=== PATIENT | female | born 1945 | race Caucasian/White ===

== ENCOUNTER 2016-08-21 18:40 | Inpatient (IN) | payer MEDICARE, OTHER ==
[~2016-08-21] VITALS: Ht 157.4 cm; Wt 59.0 kg
--- NOTE | ~2016-08-21 | EKG ---
[place], [place] ELECTROCARDIOGRAM REPORT NAME: RASHAD CHAVEZ UNIT #: [id number] ROOM: 521 DOCTOR: EVELIN VALENTIN MD BIRTHDATE: [birth year] DOS: 08/21/2016 TIME: 2017 hours. Normal sinus rhythm at 56 beats per minute. First degree heart block. A mild intraventricular conduction defect. An abnormal ECG. No previous tracing is available for comparison. EVELIN VALENTIN MD CM:EKGRPT:ELECTROCARDIOGRAM REPORT [id number] EVELIN VALENTIN MD
[~2016-08-21 18:40] MED LIST: ALBUTEROL0.09 MG/A1 INH; ASPIRIN325 MG PO; ATROVENT H0.017 MG/A INH; B-12 DOTS500 MCG PO; CALCIUM + VITA1 EAC2 PO; CEPHALEXIN500 M1 PO; CIPRO500 MG PO; COREG25 MG PO; COZAAR50 M1 PO; CYCLOBENZAPRINE10 MG PO; CYMBALTA60 MG PO; DIGOXIN0.25 MG PO; FISH OIL OMEGA1 EACH PO; GLUCOPHAGE1000 MG PO; GLUCOPHAGE500 M1 PO; IPRATROPIUM; LANOXIN0.125 MG PO; LOVASTATIN40 MG PO; MAGNESIUM250 M2 PO; NORVASC2.5 MG PO; PERCOCET 325 MG1 TA4 PO; PHENERGAN25 M3 PO; PLETAL100 M1 PO; XANAX0.5 MG PO; ZOFRAN4 MG PO
[2016-08-21 19:11] VITALS: BP 117/53
[2016-08-21 19:38] LABS: BASO % 0.6 % (0.0-1.0); EOS # 0.6 10*3/uL (0.0-0.4); EOS % 7.8 % (1.0-4.0); HEMATOCRIT 29.8 % (37.0-47.0); HEMOGLOBIN 9.6 g/dl (12.0-16.0); LYMPH # 1.6 10*3/uL (1.3-4.4); LYMPH % 21.3 % (27.0-41.0); MEAN CELL VOLUME 95.8 fl (81.0-99.0); MEAN CORPUSCULAR HGB 30.9 pg (27.0-31.0); MEAN CORPUSCULAR HGB CONC 32.2 g/dl (33.0-37.0); MEAN PLATELET VOLUME 8.8 fl (9.6-12.3); MONO # 0.6 10*3/uL (0.1-1.0); MONO % 7.8 % (3.0-9.0); NEUT # 4.5 10*3/uL (2.3-7.9); NEUT % 62.1 % (47.0-73.0); PLATELET COUNT AUTOMATED 304 10*3/uL (130-400); RED BLOOD COUNT 3.11 10*6/uL (4.10-5.10); RED CELL DISTRI WIDTH 14.5 % (0-14.5); WHITE BLOOD COUNT 7.3 10*3/uL (4.8-10.8)
[2016-08-21 19:47] LABS: PROTHROMBIN TIME 10.9 SECONDS (9.0-12.4)
[2016-08-21 19:55] LABS: ALBUMIN 3.4 gm/dl (3.1-4.5); ALKALINE PHOSPHATASE 84 U/L (45-117); BILIRUBIN, TOTAL 0.2 mg/dl (0.2-1.0); BUN 31 mg/dl (7-24); CARBON DIOXIDE 19 mmol/L (21-32); CHLORIDE 108 mmol/L (98-107); EST GLOM FILT AFRICAN AMERICAN 47 ml/min; GLUCOSE 87 mg/dL (65-99); MAGNESIUM 1.6 mg/dL (1.5-2.1); SGOT/AST 33 IU/L (3-35); SGPT/ALT 45 U/L (12-78); SODIUM 142 mmol/L (136-145); TOTAL PROTEIN 6.8 gm/dL (6.4-8.2)
[2016-08-21 19:56] LABS: TROPONIN I < 0.015 ng/ml (<0.045)
[2016-08-21 21:20] VITALS: BP 124/55
[2016-08-21 22:00] VITALS: BP 139/56
[2016-08-21 22:40] VITALS: BP 140/86; BP 96/63
[2016-08-22 01:50] VITALS: BP 99/62
[2016-08-22 02:00] LABS: CKMB 1.1 ng/ml (0.5-3.6)
[2016-08-22 04:00] VITALS: BP 100/65
[2016-08-22 06:23] LABS: BASO % 0.3 % (0.0-1.0); EOS # 0.5 10*3/uL (0.0-0.4); EOS % 7.4 % (1.0-4.0); HEMATOCRIT 28.5 % (37.0-47.0); LYMPH # 1.5 10*3/uL (1.3-4.4); LYMPH % 22.3 % (27.0-41.0); MEAN CORPUSCULAR HGB CONC 31.6 g/dl (33.0-37.0); MEAN PLATELET VOLUME 9.2 fl (9.6-12.3); MONO # 0.5 10*3/uL (0.1-1.0); MONO % 7.7 % (3.0-9.0); NEUT # 4.2 10*3/uL (2.3-7.9); PLATELET COUNT AUTOMATED 286 10*3/uL (130-400); RED CELL DISTRI WIDTH 14.4 % (0-14.5); WHITE BLOOD COUNT 6.8 10*3/uL (4.8-10.8)
[2016-08-22 06:41] LABS: PROTHROMBIN TIME 11.1 SECONDS (9.0-12.4)
[2016-08-22 06:43] LABS: CKMB 1.7 ng/ml (0.5-3.6)
[2016-08-22 06:57] LABS: POTASSIUM 4.8 mmol/L (3.5-5.1)
[2016-08-22 07:10] LABS: ALBUMIN 3.1 gm/dl (3.1-4.5); BILIRUBIN, TOTAL 0.1 mg/dl (0.2-1.0); FREE T4 0.77 ng/dl (0.76-1.46); MAGNESIUM 1.4 mg/dL (1.5-2.1); PHOSPHOROUS 4.6 mg/dL (2.5-4.9); THYROID STIM HORMONE (HS) 2.68 uIU/ml (0.358-4.75); TOTAL PROTEIN 6.1 gm/dL (6.4-8.2)
[2016-08-22 07:43] LABS: HEMOGLOBIN A1c 5.8 % (4.8-5.6)
[2016-08-22 08:00] VITALS: BP 121/99
[2016-08-22 08:29] LABS: BILIRUBIN NEGATIVE (NEGATIVE); BLOOD NEGATIVE (NEGATIVE); CLARITY CLEAR (CLEAR); COLOR YELLOW (YELLOW); GLUCOSE NEGATIVE (NEGATIVE); KETONE NEGATIVE (NEGATIVE); LEUKO ESTERASE NEGATIVE (NEGATIVE); NITRITE NEGATIVE (NEGATIVE); PH 5.5 (5.0-9.0); PROTEIN NEGATIVE (NEGATIVE); SPECIFIC GRAVITY <= 1.005 (1.005-1.030); UROBILINOGEN 0.2 E.U./dl (0.2-1.0)
[2016-08-22 08:33] LABS: FOLIC ACID 8.37 ng/mL (>5.38)
[2016-08-22 08:52] LABS: URINE REFLEX COMMENT NO (NO)
== END 2016-08-22 13:05 | disposition home or self-care (01) | DRG 684 ==
LOC: ED 18:40 → EDHOLD 21:06 → 5E 21:28
PROVIDERS: Emergency Medicine; Hospitalist; Internal Medicine
DX: N17.0 Acute kidney failure with tubular necrosis (principal); E11.51 Type 2 diabetes mellitus with diabetic peripheral angiopathy without gangrene; Z99.81 Dependence on supplemental oxygen; M54.9 Dorsalgia, unspecified; M25.511 Pain in right shoulder; M25.512 Pain in left shoulder; D64.9 Anemia, unspecified; I25.10 Atherosclerotic heart disease of native coronary artery without angina pectoris; I70.0 Atherosclerosis of aorta; I70.1 Atherosclerosis of renal artery; I10 Essential (primary) hypertension; J44.9 Chronic obstructive pulmonary disease, unspecified; K57.90 Diverticulosis of intestine, part unspecified, without perforation or abscess without bleeding; F41.1 Generalized anxiety disorder; R07.82 Intercostal pain; Z90.710 Acquired absence of both cervix and uterus; Z87.891 Personal history of nicotine dependence; Z90.49 Acquired absence of other specified parts of digestive tract; Z88.2 Allergy status to sulfonamides; Z79.82 Long term (current) use of aspirin; Z88.0 Allergy status to penicillin; Z79.899 Other long term (current) drug therapy; Z95.1 Presence of aortocoronary bypass graft; Z79.84 Long term (current) use of oral hypoglycemic drugs

== ENCOUNTER 2016-09-12 07:17 | Inpatient (IN) | payer MEDICARE, OTHER ==
[~2016-09-12] VITALS: Ht 160 cm; Wt 52.8 kg
[2016-09-12 07:23] VITALS: BP 150/70
[2016-09-12 08:11] LABS: BASO % 0.1 % (0.0-1.0); EOS % 0.1 % (1.0-4.0); HEMATOCRIT 28.6 % (37.0-47.0); HEMOGLOBIN 9.9 g/dl (12.0-16.0); IG # 0.1 10*3/uL (0.0-0.1); LYMPH # 0.7 10*3/uL (1.3-4.4); LYMPH % 5.3 % (27.0-41.0); MEAN CORPUSCULAR HGB 30.5 pg (27.0-31.0); MEAN CORPUSCULAR HGB CONC 34.6 g/dl (33.0-37.0); MEAN PLATELET VOLUME 9.9 fl (9.6-12.3); MONO # 0.7 10*3/uL (0.1-1.0); MONO % 5.1 % (3.0-9.0); NEUT % 88.7 % (47.0-73.0); PLATELET COUNT AUTOMATED 624 10*3/uL (130-400); RED BLOOD COUNT 3.25 10*6/uL (4.10-5.10); WHITE BLOOD COUNT 13.5 10*3/uL (4.8-10.8)
[2016-09-12 08:20] LABS: PROTHROMBIN TIME 10.9 SECONDS (9.0-12.4)
[2016-09-12 08:29] LABS: ALKALINE PHOSPHATASE 82 U/L (45-117); BILIRUBIN, TOTAL 0.3 mg/dl (0.2-1.0); BUN 113 mg/dl (7-24); C-REACTIVE PROTEIN 0.35 MG/DL (0-0.3); CARBON DIOXIDE 19 mmol/L (21-32); CHLORIDE 95 mmol/L (98-107); CKMB 2.6 ng/ml (0.5-3.6); EST GLOM FILT AFRICAN AMERICAN 22 ml/min; GLUCOSE 168 mg/dL (65-99); POTASSIUM 3.1 mmol/L (3.5-5.1); SGOT/AST 12 IU/L (3-35); SGPT/ALT 15 U/L (12-78); SODIUM 129 mmol/L (136-145); TOTAL PROTEIN 7.7 gm/dL (6.4-8.2)
[2016-09-12 08:30] LABS: CPK 33 U/L (26-192)
[2016-09-12 08:32] LABS: TROPONIN I < 0.015 ng/ml (<0.045)
[2016-09-12 08:39] LABS: BILIRUBIN 1+ (NEGATIVE); BLOOD 3+ (NEGATIVE); CLARITY CLOUDY (CLEAR); COLOR YELLOW (YELLOW); GLUCOSE NEGATIVE (NEGATIVE); KETONE NEGATIVE (NEGATIVE); LEUKO ESTERASE 1+ (NEGATIVE); NITRITE NEGATIVE (NEGATIVE); PH 5.5 (5.0-9.0); PROTEIN 1+ (NEGATIVE); UROBILINOGEN 0.2 E.U./dl (0.2-1.0)
[2016-09-12 08:51] LABS: URINE REFLEX COMMENT YES (NO); WBC TNTC wbc/hpf (0-5)
[2016-09-12 08:52] LABS: BACTERIA 3+; EPITHELIAL CELLS 20-30; RBC 41-50 rbc/hpf (0-2)
[2016-09-12 09:27] VITALS: BP 133/62
[2016-09-12] MEDS ORDERED: METHOCARBAMOL750 M1 PO (12:05)
[2016-09-12] MEDS ORDERED: MIRTAZAPINE15 M2 PO (12:06)
[2016-09-12] MEDS ORDERED: LOVASTATIN40 MG PO (12:07)
[2016-09-12 12:20] VITALS: BP 175/64
[2016-09-12 12:55] LABS: CKMB 2.2 ng/ml (0.5-3.6)
[2016-09-12 16:04] VITALS: BP 162/80
[2016-09-12 20:00] VITALS: BP 113/51
[2016-09-13] VITALS (9 sets, daily range): BP systolic 90–137; BP diastolic 40–59
[2016-09-13 00:55] LABS: CKMB 2.1 ng/ml (0.5-3.6)
[2016-09-13 07:24] LABS: BASO % 0.3 % (0.0-1.0); EOS # 0.2 10*3/uL (0.0-0.4); EOS % 2.1 % (1.0-4.0); HEMATOCRIT 22.8 % (37.0-47.0); LYMPH # 1.2 10*3/uL (1.3-4.4); LYMPH % 12.3 % (27.0-41.0); MEAN CELL VOLUME 89.8 fl (81.0-99.0); MEAN CORPUSCULAR HGB 30.7 pg (27.0-31.0); MEAN CORPUSCULAR HGB CONC 34.2 g/dl (33.0-37.0); MEAN PLATELET VOLUME 9.8 fl (9.6-12.3); MONO # 0.6 10*3/uL (0.1-1.0); NEUT # 7.7 10*3/uL (2.3-7.9); NEUT % 78.9 % (47.0-73.0); PLATELET COUNT AUTOMATED 472 10*3/uL (130-400); RED BLOOD COUNT 2.54 10*6/uL (4.10-5.10); WHITE BLOOD COUNT 9.8 10*3/uL (4.8-10.8)
[2016-09-13 07:27] LABS: HEMOGLOBIN 7.8 g/dl (12.0-16.0)
[2016-09-13 07:51] LABS: PROTHROMBIN TIME 11.1 SECONDS (9.0-12.4)
[2016-09-13 07:53] LABS: BILIRUBIN, TOTAL 0.2 mg/dl (0.2-1.0); MAGNESIUM 1.6 mg/dL (1.5-2.1); PHOSPHOROUS 3.8 mg/dL (2.5-4.9); POTASSIUM 3.1 mmol/L (3.5-5.1); TOTAL PROTEIN 5.9 gm/dL (6.4-8.2)
[2016-09-13 08:00] LABS: THYROID STIM HORMONE (HS) 1.81 uIU/ml (0.358-4.75)
[2016-09-13 08:13] LABS: HEMOGLOBIN A1c 5.7 % (4.8-5.6)
[2016-09-13 08:45] LABS: FOLIC ACID 11.78 ng/mL (>5.38)
[2016-09-14] VITALS (10 sets, daily range): BP systolic 100–134; BP diastolic 50–70
[2016-09-14 06:37] LABS: BASO % 0.2 % (0.0-1.0); EOS # 0.2 10*3/uL (0.0-0.4); EOS % 1.6 % (1.0-4.0); HEMATOCRIT 26.7 % (37.0-47.0); HEMOGLOBIN 9.1 g/dl (12.0-16.0); LYMPH # 0.6 10*3/uL (1.3-4.4); LYMPH % 5.4 % (27.0-41.0); MEAN CELL VOLUME 89.9 fl (81.0-99.0); MEAN CORPUSCULAR HGB 30.6 pg (27.0-31.0); MEAN CORPUSCULAR HGB CONC 34.1 g/dl (33.0-37.0); MEAN PLATELET VOLUME 9.7 fl (9.6-12.3); MONO # 0.6 10*3/uL (0.1-1.0); MONO % 5.7 % (3.0-9.0); NEUT # 8.8 10*3/uL (2.3-7.9); NEUT % 86.8 % (47.0-73.0); PLATELET COUNT AUTOMATED 374 10*3/uL (130-400); RED BLOOD COUNT 2.97 10*6/uL (4.10-5.10); RED CELL DISTRI WIDTH 14.3 % (0-14.5); WHITE BLOOD COUNT 10.1 10*3/uL (4.8-10.8)
[2016-09-14 06:59] LABS: ALBUMIN 2.6 gm/dl (3.1-4.5); ALKALINE PHOSPHATASE 58 U/L (45-117); BILIRUBIN, TOTAL 0.2 mg/dl (0.2-1.0); CARBON DIOXIDE 18 mmol/L (21-32); CHLORIDE 106 mmol/L (98-107); EST GLOM FILT AFRICAN AMERICAN > 60 ml/min; GLUCOSE 99 mg/dL (65-99); POTASSIUM 3.2 mmol/L (3.5-5.1); SGOT/AST 13 IU/L (3-35); SGPT/ALT 11 U/L (12-78); SODIUM 136 mmol/L (136-145); TOTAL PROTEIN 5.4 gm/dL (6.4-8.2)
[2016-09-14 07:00] LABS: BUN 47 mg/dl (7-24)
[2016-09-15] VITALS: BP 96/78
[2016-09-15 06:31] LABS: BASO % 0.5 % (0.0-1.0); EOS # 0.3 10*3/uL (0.0-0.4); EOS % 3.2 % (1.0-4.0); HEMATOCRIT 25.7 % (37.0-47.0); HEMOGLOBIN 8.6 g/dl (12.0-16.0); LYMPH % 11.1 % (27.0-41.0); MEAN CELL VOLUME 90.5 fl (81.0-99.0); MEAN CORPUSCULAR HGB 30.3 pg (27.0-31.0); MEAN CORPUSCULAR HGB CONC 33.5 g/dl (33.0-37.0); MEAN PLATELET VOLUME 9.9 fl (9.6-12.3); MONO # 0.7 10*3/uL (0.1-1.0); MONO % 8.4 % (3.0-9.0); NEUT # 6.5 10*3/uL (2.3-7.9); NEUT % 76.4 % (47.0-73.0); PLATELET COUNT AUTOMATED 350 10*3/uL (130-400); RED BLOOD COUNT 2.84 10*6/uL (4.10-5.10); RED CELL DISTRI WIDTH 14.5 % (0-14.5); WHITE BLOOD COUNT 8.5 10*3/uL (4.8-10.8)
[2016-09-15 06:59] LABS: BUN 20 mg/dl (7-24); CARBON DIOXIDE 23 mmol/L (21-32); CHLORIDE 107 mmol/L (98-107); EST GLOM FILT AFRICAN AMERICAN > 60 ml/min; GLUCOSE 101 mg/dL (65-99); POTASSIUM 3.5 mmol/L (3.5-5.1); SODIUM 138 mmol/L (136-145)
[2016-09-15 08:00] VITALS: BP 116/60
[2016-09-15 12:00] VITALS: BP 140/78
== END 2016-09-15 14:18 | disposition other institution (70) | DRG 682 ==
LOC: ED 07:17 → EDHOLD 10:57 → 5E 10:57
PROVIDERS: Emergency Medicine; Hospitalist; Internal Medicine
PROC: 30233N1 Transfusion of Nonautologous Red Blood Cells into Peripheral Vein, Percutaneous Approach (ICD-10-PCS; principal; 2016-09-13)
DX: N17.0 Acute kidney failure with tubular necrosis (principal); E43 Unspecified severe protein-calorie malnutrition; N39.0 Urinary tract infection, site not specified; E11.65 Type 2 diabetes mellitus with hyperglycemia; E11.51 Type 2 diabetes mellitus with diabetic peripheral angiopathy without gangrene; E86.0 Dehydration; E87.1 Hypo-osmolality and hyponatremia; D64.9 Anemia, unspecified; G89.29 Other chronic pain; M54.9 Dorsalgia, unspecified; R94.31 Abnormal electrocardiogram [ECG] [EKG]; E87.6 Hypokalemia; D47.3 Essential (hemorrhagic) thrombocythemia; R79.82 Elevated C-reactive protein (CRP); J41.8 Mixed simple and mucopurulent chronic bronchitis; I70.0 Atherosclerosis of aorta; I70.1 Atherosclerosis of renal artery; E55.9 Vitamin D deficiency, unspecified; I25.10 Atherosclerotic heart disease of native coronary artery without angina pectoris; I10 Essential (primary) hypertension; K57.90 Diverticulosis of intestine, part unspecified, without perforation or abscess without bleeding; F41.1 Generalized anxiety disorder; Z88.0 Allergy status to penicillin; Z88.2 Allergy status to sulfonamides; Z68.20 Body mass index [BMI] 20.0-20.9, adult; Z90.49 Acquired absence of other specified parts of digestive tract; Z95.1 Presence of aortocoronary bypass graft; Z87.891 Personal history of nicotine dependence; Z83.3 Family history of diabetes mellitus

== ENCOUNTER 2016-09-24 09:38 | Inpatient (IN) | payer MEDICARE, OTHER ==
[~2016-09-24] VITALS: Ht 160 cm; Wt 56.8 kg
[2016-09-24] VITALS (13 sets, daily range): BP systolic 112–135; BP diastolic 47–68
--- NOTE | ~2016-09-24 | O ---
[place], [place] OPERATIVE NOTE NAME: BESSIE CHAVEZRA Mayer UNIT #: [id number] ROOM: 410 DOCTOR: RAS CASTELLON MD BIRTHDATE: [birth year] DOS: GASTROENDOSCOPIC REPORT INDICATION: This is a 71-year-old patient who presented with chief complaint of tiredness, weakness and was found to be profoundly anemic with status post 2 units of transfusion. PAST MEDICAL HISTORY: COPD, coronary artery disease, atherosclerotic heart disease, hypertension, diverticulosis, protein malnutrition. PAST SURGICAL HISTORY: CABG, cholecystectomy, hysterectomy, breast lumpectomy. SOCIAL HISTORY: Past smoker and past alcohol consumer. FAMILY HISTORY: Noncontributory. ALLERGIES: PENICILLIN AND SULFA. MEDICATION LIST: Has been reviewed. She has been on aspirin, which is presently on hold. She has been also on Pletal daily. PROCEDURE: Today's procedure part of investigation is colonoscopy, panendoscopy. PREMEDICATION: Versed and Diprivan. SCOPE: Olympus forward-viewing colonoscope 10L video. REPORT: After putting the patient in the left lateral position and after application of lubricant to rectal pouch and digital examination, scope was introduced; thereafter, under direct visualization with difficulty passed throughout the length of colon. Retained blood in the stool and dark view does not allow detail investigation. Diverticulosis noticed. As much as possible lavage was done. There was no evidence of ischemia. The patient extubated, tolerated procedure well. IMPRESSION: Diverticulosis, retained blood in the stool. PLAN: I going to proceed with panendoscopy. [place], [place] OPERATIVE NOTE NAME: RASHAD CHAVEZ UNIT #: [id number] ROOM: 410 DOCTOR: RAS CASTELLON MD BIRTHDATE: [birth year] RAS CASTELLON MD CM:OPRECORD:OPERATIVE NOTE 1642 39 RAS CASTELLON MD 09/25/162233 interface
--- NOTE | ~2016-09-24 | O ---
[place], [place] OPERATIVE NOTE NAME: RASHAD CHAVEZ UNIT #: [id number] ROOM: 410 DOCTOR: CANDE KLEIN,RAS BIRTHDATE: [birth year] DOS: GASTROENDOSCOPIC REPORT INDICATION: The patient has presented with GI bleed, status post 2 units of packed cell transfusion. The patient with INR of 1.0. The H and H at the time of admission 5 and 19 status post multi transfusion to improve H and H of 7 and 25. The patient is on aspirin 325 mg daily. Troponin has been negative. CT scan of abdomen and pelvis has been reviewed. No definitive acute findings noticed. Atherosclerotic disease in general has been noticed. PROCEDURE: Today's procedure part of investigation is panendoscopy plus biopsy. PREMEDICATION: Versed and Diprivan. SCOPE: Olympus forward-viewing gastroscope Q10 video. REPORT: After putting the patient in the left lateral position and after application of lubricant to the scope, the scope was introduced. Thereafter, under direct visualization, I advanced through the length of esophagus without difficulty into gastric pouch. Evidence of hiatal hernia, gastritis was noticed. Duodenum second part expresses a giant duodenal ulcer, which is scarred and distant margin of the ulcer was targeted. Biopsy obtained. Photographic series obtained. The patient extubated, tolerated procedure well. IMPRESSION: Giant duodenal ulcer as a source of gastrointestinal blood loss. PLAN AND DISCUSSION: The patient will be placed on ice cream and milkshake and ice water diet. Her aspirin is going to go on hold and Pletal is going to go on hold. We are going to keep her on Protonix 40 mg IV b.i.d. We are going to start her on Carafate 2 g slurry q.i.d. and clinical reassessment. Thank you very much indeed. [place], [place] OPERATIVE NOTE NAME: RASHAD CHAVEZ Leyla UNIT #: [id number] ROOM: 410 DOCTOR: CANDE KLEIN,RAS BIRTHDATE: [birth year] RAS CASTELLON MD CM:OPRECORD:OPERATIVE NOTE 1642 35 RAS CASTELLON MD 09/25/162235 interface
--- NOTE | ~2016-09-24 | CON ---
[place], [place] REPORT OF CONSULTATION [id number] UNIT #: [id number] ROOM: 410 DOCTOR: ATIL[facility] BIRTH[facility]: [birth year] DOS: HISTORY OF PRESENT ILLNESS: A 71-year-old patient who presented with acute GI bleed a few days ago, underwent urgent endoscopy and was found to have a giant duodenal ulcer, gastritis, hiatal hernia. Biopsies were obtained and no malignancy was identified. She was repeatedly anemic, status post multiple transfusion and the latest H and H has stabilized at 9 and 31 for the past couple of days and indeed crescendo improvement has been noticed. A urinalysis 50,000 and Enterobacter cloacae has been noticed. Her basic metabolic panel has been within normal limits and albumin and total protein are low that was secondary to limitation of her diet. Liver function tests remained normal. PAST MEDICAL HISTORY: Associated with COPD, diabetes mellitus, coronary artery disease, diverticulosis, has been recognized. PAST SURGICAL HISTORY: Coronary artery disease, cholecystectomy, status post CABG, hysterectomy, breast lumpectomy all has been recognized. REVIEW OF SYSTEMS: HEENT: Denies double vision, blurred vision. RESPIRATORY: Denies acute shortness of breath. CARDIOVASCULAR: Denies chest pain. DIGESTIVE: Stopped bleeding since Sandostatin has been on board so far. PHYSICAL EXAMINATION: GENERAL: Elderly, frail and alert and oriented, pleasant. HEENT: Benign. NECK: Supple. LUNGS: Vesicular, no wheeze, no rhonchi. HEART: Grade III/ systolic murmur loud, left sternal border. ABDOMEN: Soft. EXTREMITIES: No cyanosis, no pedal edema. NEUROLOGIC: Alert and oriented. IMPRESSION AND PLAN: Giant duodenal ulcer secondary to nonsteroidal anti-inflammatory. The patient was advised to abstain from intake of non-prescribed medications: Tylenol as a substitute for pain management. The patient is going to continue as an outpatient on Protonix 40 mg p.o. b.i.d., sucralfate 1 gram 2 hours before meals and at bedtime for one month and after that she is going to stay on maintenance of Protonix 40 mg daily for at least 90 days after the first month and she is going to follow up with the clinic and clinical reassessment as necessitates. OTHER ADJUNCTIVE DIAGNOSES: As outlined in paragraph past medical and surgical history. [place], [place] REPORT OF CONSULTATION NAME: RASHAD CHAVEZ UNIT #: [id number] ROOM: 410 DOCTOR: CANDE KLEIN,RAS BIRTHDATE: [birth year] RAS CASTELLON MD CM:CONSTR:REPORT OF CONSULTATION 1220 09/30/16 1713 interface
[~2016-09-24 09:38] MED LIST changes: +METHOCARBAMOL750 M1 PO; +MIRTAZAPINE15 M2 PO
[2016-09-24 10:24] LABS: BASO % 0.3 % (0.0-1.0); EOS # 0.1 10*3/uL (0.0-0.4); EOS % 1.1 % (1.0-4.0); HEMATOCRIT 19.9 % (37.0-47.0); HEMOGLOBIN 6.1 g/dl (12.0-16.0); LYMPH % 15.7 % (27.0-41.0); MEAN CORPUSCULAR HGB 30.7 pg (27.0-31.0); MEAN CORPUSCULAR HGB CONC 30.7 g/dl (33.0-37.0); MEAN PLATELET VOLUME 9.3 fl (9.6-12.3); MONO # 0.6 10*3/uL (0.1-1.0); MONO % 9.4 % (3.0-9.0); NEUT # 4.5 10*3/uL (2.3-7.9); PLATELET COUNT AUTOMATED 288 10*3/uL (130-400); RED BLOOD COUNT 1.99 10*6/uL (4.10-5.10); RED CELL DISTRI WIDTH 16.1 % (0-14.5); WHITE BLOOD COUNT 6.2 10*3/uL (4.8-10.8)
[2016-09-24 10:31] LABS: INTERNATIONAL NORM RATIO 1.1 (2.0-3.5); PROTHROMBIN TIME 11.3 SECONDS (9.0-12.4)
[2016-09-24 10:40] LABS: ALBUMIN 2.4 gm/dl (3.1-4.5); ALKALINE PHOSPHATASE 57 U/L (45-117); BILIRUBIN, TOTAL 0.2 mg/dl (0.2-1.0); BUN 24 mg/dl (7-24); C-REACTIVE PROTEIN 5.71 MG/DL (0-0.3); CARBON DIOXIDE 30 mmol/L (21-32); CHLORIDE 99 mmol/L (98-107); CKMB 0.6 ng/ml (0.5-3.6); CPK 33 U/L (26-192); EST GLOM FILT AFRICAN AMERICAN > 60 ml/min; GLUCOSE 171 mg/dL (65-99); MAGNESIUM 1.6 mg/dL (1.5-2.1); POTASSIUM 4.7 mmol/L (3.5-5.1); SGOT/AST 24 IU/L (3-35); SGPT/ALT 22 U/L (12-78); SODIUM 134 mmol/L (136-145); TOTAL PROTEIN 6.2 gm/dL (6.4-8.2)
[2016-09-24 10:41] LABS: TROPONIN I < 0.015 ng/ml (<0.045)
[2016-09-24 10:49] LABS: BILIRUBIN NEGATIVE (NEGATIVE); BLOOD NEGATIVE (NEGATIVE); CLARITY SL CLOUDY (CLEAR); COLOR ORANGE (YELLOW); GLUCOSE NEGATIVE (NEGATIVE); KETONE TRACE (NEGATIVE); LEUKO ESTERASE TRACE (NEGATIVE); NITRITE NEGATIVE (NEGATIVE); PROTEIN NEGATIVE (NEGATIVE)
[2016-09-24 10:52] LABS: DIGOXIN 0.65 ng/ml (0.8-2.0)
[2016-09-24 11:04] LABS: RBC 0-2 rbc/hpf (0-2); URINE REFLEX COMMENT YES (NO)
[2016-09-24] MEDS ORDERED: LIDODERM 5% PATC1 EA PO (14:26)
[2016-09-24] MEDS ORDERED: TYLENOL325 M1 PO (14:27)
[2016-09-24] MEDS ORDERED: VITAMIN D5000 UNI1 PO (14:28)
[2016-09-24 18:57] LABS: HEMATOCRIT 16.6 % (37.0-47.0)
[2016-09-25] VITALS (17 sets, daily range): BP systolic 80–154; BP diastolic 38–76
[2016-09-25 06:38] LABS: BASO % 0.4 % (0.0-1.0); EOS # 0.2 10*3/uL (0.0-0.4); EOS % 2.4 % (1.0-4.0); LYMPH # 1.1 10*3/uL (1.3-4.4); LYMPH % 15.5 % (27.0-41.0); MEAN CORPUSCULAR HGB 30.1 pg (27.0-31.0); MEAN CORPUSCULAR HGB CONC 31.2 g/dl (33.0-37.0); MEAN PLATELET VOLUME 9.4 fl (9.6-12.3); MONO # 0.6 10*3/uL (0.1-1.0); MONO % 8.1 % (3.0-9.0); NEUT % 73.3 % (47.0-73.0); PLATELET COUNT AUTOMATED 305 10*3/uL (130-400); RED BLOOD COUNT 2.59 10*6/uL (4.10-5.10); RED CELL DISTRI WIDTH 16.5 % (0-14.5); WHITE BLOOD COUNT 6.8 10*3/uL (4.8-10.8)
[2016-09-25 06:39] LABS: HEMOGLOBIN 7.8 g/dl (12.0-16.0); MEAN CELL VOLUME 96.5 fl (81.0-99.0)
[2016-09-25 07:10] LABS: ALBUMIN 2.6 gm/dl (3.1-4.5); ALKALINE PHOSPHATASE 57 U/L (45-117); BILIRUBIN, TOTAL 0.4 mg/dl (0.2-1.0); CARBON DIOXIDE 30 mmol/L (21-32); CHLORIDE 101 mmol/L (98-107); EST GLOM FILT AFRICAN AMERICAN > 60 ml/min; GLUCOSE 122 mg/dL (65-99); MAGNESIUM 1.5 mg/dL (1.5-2.1); PHOSPHOROUS 3.3 mg/dL (2.5-4.9); POTASSIUM 4.9 mmol/L (3.5-5.1); SGOT/AST 28 IU/L (3-35); SGPT/ALT 27 U/L (12-78); SODIUM 137 mmol/L (136-145); TOTAL PROTEIN 6.2 gm/dL (6.4-8.2)
[2016-09-25 07:11] LABS: BUN 14 mg/dl (7-24); PROTHROMBIN TIME 10.9 SECONDS (9.0-12.4)
[2016-09-26] VITALS (12 sets, daily range): BP systolic 112–158; BP diastolic 40–96
[2016-09-26 06:24] LABS: BASO % 0.4 % (0.0-1.0); EOS # 0.2 10*3/uL (0.0-0.4); EOS % 2.9 % (1.0-4.0); HEMATOCRIT 20.4 % (37.0-47.0); HEMOGLOBIN 6.1 g/dl (12.0-16.0); MEAN CELL VOLUME 98.6 fl (81.0-99.0); MEAN CORPUSCULAR HGB 29.5 pg (27.0-31.0); MEAN CORPUSCULAR HGB CONC 29.9 g/dl (33.0-37.0); MEAN PLATELET VOLUME 9.5 fl (9.6-12.3); MONO # 0.6 10*3/uL (0.1-1.0); MONO % 10.7 % (3.0-9.0); NEUT # 3.5 10*3/uL (2.3-7.9); NEUT % 66.6 % (47.0-73.0); PLATELET COUNT AUTOMATED 283 10*3/uL (130-400); RED BLOOD COUNT 2.07 10*6/uL (4.10-5.10); RED CELL DISTRI WIDTH 17.3 % (0-14.5); WHITE BLOOD COUNT 5.2 10*3/uL (4.8-10.8)
[2016-09-26 06:51] LABS: BUN 12 mg/dl (7-24); CARBON DIOXIDE 30 mmol/L (21-32); CHLORIDE 103 mmol/L (98-107); EST GLOM FILT AFRICAN AMERICAN > 60 ml/min; GLUCOSE 99 mg/dL (65-99); SODIUM 138 mmol/L (136-145)
[2016-09-26 07:19] LABS: POTASSIUM 3.9 mmol/L (3.5-5.1)
[2016-09-26 08:20] LABS: HEMATOCRIT 21.7 % (37.0-47.0); HEMOGLOBIN 6.5 g/dl (12.0-16.0)
[2016-09-26 18:00] LABS: HEMATOCRIT 26.1 % (37.0-47.0); HEMOGLOBIN 8.1 g/dl (12.0-16.0)
[2016-09-27] VITALS (11 sets, daily range): BP systolic 122–162; BP diastolic 62–99
[2016-09-27 07:13] LABS: BASO % 0.2 % (0.0-1.0); EOS # 0.1 10*3/uL (0.0-0.4); HEMATOCRIT 27.7 % (37.0-47.0); HEMOGLOBIN 8.6 g/dl (12.0-16.0); LYMPH # 0.4 10*3/uL (1.3-4.4); LYMPH % 9.8 % (27.0-41.0); MEAN CELL VOLUME 94.9 fl (81.0-99.0); MEAN CORPUSCULAR HGB 29.5 pg (27.0-31.0); MEAN PLATELET VOLUME 9.6 fl (9.6-12.3); MONO # 0.3 10*3/uL (0.1-1.0); MONO % 7.5 % (3.0-9.0); NEUT # 3.5 10*3/uL (2.3-7.9); PLATELET COUNT AUTOMATED 315 10*3/uL (130-400); RED BLOOD COUNT 2.92 10*6/uL (4.10-5.10); RED CELL DISTRI WIDTH 16.9 % (0-14.5); WHITE BLOOD COUNT 4.4 10*3/uL (4.8-10.8)
[2016-09-27 07:15] LABS: BUN 5 mg/dl (7-24); CARBON DIOXIDE 31 mmol/L (21-32); CHLORIDE 102 mmol/L (98-107); EST GLOM FILT AFRICAN AMERICAN > 60 ml/min; GLUCOSE 107 mg/dL (65-99); POTASSIUM 4.2 mmol/L (3.5-5.1); SODIUM 139 mmol/L (136-145)
[2016-09-27 09:09] LABS: COL/EPI 113 SECONDS (86-157)
[2016-09-28] VITALS: BP 152/74
[2016-09-28 06:40] LABS: BASO % 0.5 % (0.0-1.0); EOS # 0.1 10*3/uL (0.0-0.4); EOS % 3.2 % (1.0-4.0); HEMATOCRIT 30.2 % (37.0-47.0); HEMOGLOBIN 9.2 g/dl (12.0-16.0); LYMPH # 0.7 10*3/uL (1.3-4.4); LYMPH % 15.5 % (27.0-41.0); MEAN CELL VOLUME 96.2 fl (81.0-99.0); MEAN CORPUSCULAR HGB 29.3 pg (27.0-31.0); MEAN CORPUSCULAR HGB CONC 30.5 g/dl (33.0-37.0); MEAN PLATELET VOLUME 9.4 fl (9.6-12.3); MONO # 0.4 10*3/uL (0.1-1.0); MONO % 10.2 % (3.0-9.0); NEUT % 70.1 % (47.0-73.0); PLATELET COUNT AUTOMATED 382 10*3/uL (130-400); RED BLOOD COUNT 3.14 10*6/uL (4.10-5.10); RED CELL DISTRI WIDTH 16.9 % (0-14.5); WHITE BLOOD COUNT 4.3 10*3/uL (4.8-10.8)
[2016-09-28 07:02] LABS: ALBUMIN 2.4 gm/dl (3.1-4.5); ALKALINE PHOSPHATASE 61 U/L (45-117); BILIRUBIN, TOTAL 0.3 mg/dl (0.2-1.0); BUN 4 mg/dl (7-24); CARBON DIOXIDE 29 mmol/L (21-32); CHLORIDE 105 mmol/L (98-107); EST GLOM FILT AFRICAN AMERICAN > 60 ml/min; GLUCOSE 119 mg/dL (65-99); POTASSIUM 4.4 mmol/L (3.5-5.1); SGOT/AST 16 IU/L (3-35); SGPT/ALT 19 U/L (12-78); SODIUM 139 mmol/L (136-145); TOTAL PROTEIN 5.9 gm/dL (6.4-8.2)
[2016-09-28 08:00] VITALS: BP 134/78
[2016-09-28 12:00] VITALS: BP 140/61
[2016-09-28 16:04] VITALS: BP 179/74
[2016-09-28 20:00] VITALS: BP 182/94
[2016-09-29] VITALS: BP 168/86
[2016-09-29 06:12] LABS: BASO % 0.7 % (0.0-1.0); EOS # 0.1 10*3/uL (0.0-0.4); EOS % 2.9 % (1.0-4.0); HEMATOCRIT 31.1 % (37.0-47.0); HEMOGLOBIN 9.4 g/dl (12.0-16.0); LYMPH # 0.8 10*3/uL (1.3-4.4); LYMPH % 20.1 % (27.0-41.0); MEAN CELL VOLUME 96.6 fl (81.0-99.0); MEAN CORPUSCULAR HGB 29.2 pg (27.0-31.0); MEAN CORPUSCULAR HGB CONC 30.2 g/dl (33.0-37.0); MEAN PLATELET VOLUME 9.4 fl (9.6-12.3); MONO # 0.5 10*3/uL (0.1-1.0); NEUT # 2.7 10*3/uL (2.3-7.9); NEUT % 64.8 % (47.0-73.0); PLATELET COUNT AUTOMATED 442 10*3/uL (130-400); RED BLOOD COUNT 3.22 10*6/uL (4.10-5.10); RED CELL DISTRI WIDTH 16.3 % (0-14.5); WHITE BLOOD COUNT 4.2 10*3/uL (4.8-10.8)
[2016-09-29 06:27] LABS: BUN 3 mg/dl (7-24); CARBON DIOXIDE 31 mmol/L (21-32); CHLORIDE 105 mmol/L (98-107); EST GLOM FILT AFRICAN AMERICAN > 60 ml/min; GLUCOSE 108 mg/dL (65-99); POTASSIUM 4.7 mmol/L (3.5-5.1); SODIUM 140 mmol/L (136-145)
[2016-09-29 08:00] VITALS: BP 158/76
[2016-09-29 12:02] VITALS: BP 178/75
[2016-09-29 16:00] VITALS: BP 123/48
[2016-09-29 20:00] VITALS: BP 151/67
[2016-09-30] VITALS: BP 162/70
[2016-09-30 06:13] LABS: BASO % 0.6 % (0.0-1.0); EOS # 0.2 10*3/uL (0.0-0.4); EOS % 4.4 % (1.0-4.0); HEMATOCRIT 31.2 % (37.0-47.0); HEMOGLOBIN 9.4 g/dl (12.0-16.0); LYMPH # 1.1 10*3/uL (1.3-4.4); MEAN CELL VOLUME 96.3 fl (81.0-99.0); MEAN CORPUSCULAR HGB CONC 30.1 g/dl (33.0-37.0); MEAN PLATELET VOLUME 9.7 fl (9.6-12.3); MONO # 0.7 10*3/uL (0.1-1.0); MONO % 13.1 % (3.0-9.0); NEUT # 3.1 10*3/uL (2.3-7.9); NEUT % 60.5 % (47.0-73.0); PLATELET COUNT AUTOMATED 416 10*3/uL (130-400); RED BLOOD COUNT 3.24 10*6/uL (4.10-5.10); RED CELL DISTRI WIDTH 15.9 % (0-14.5)
[2016-09-30 06:56] LABS: ALBUMIN 2.4 gm/dl (3.1-4.5); ALKALINE PHOSPHATASE 61 U/L (45-117); BILIRUBIN, TOTAL 0.2 mg/dl (0.2-1.0); BUN 5 mg/dl (7-24); CARBON DIOXIDE 31 mmol/L (21-32); CHLORIDE 105 mmol/L (98-107); EST GLOM FILT AFRICAN AMERICAN > 60 ml/min; GLUCOSE 98 mg/dL (65-99); POTASSIUM 4.1 mmol/L (3.5-5.1); SGOT/AST 11 IU/L (3-35); SGPT/ALT 16 U/L (12-78); SODIUM 141 mmol/L (136-145); TOTAL PROTEIN 5.8 gm/dL (6.4-8.2)
[2016-09-30 08:00] VITALS: BP 159/61
[2016-09-30 12:00] VITALS: BP 142/86
[2016-09-30] MEDS ORDERED: PROTONIX40 MG PO (13:27)
[2016-09-30] MEDS ORDERED: CARAFATE1 G1 PO (13:27)
[2016-09-30] MEDS ORDERED: VITAMIN D50000 I3 PO (14:11)
== END 2016-09-30 17:35 | disposition home or self-care (01) | DRG 377 ==
LOC: ED 09:38 → 4E 12:05 → EDHOLD 12:05 → 4E 12:19
PROVIDERS: Emergency Medicine; Family Medicine Adult Medicine; Hospitalist; Internal Medicine; Internal Medicine Gastroenterology; Internal Medicine Nephrology; Student in an Organized Health Care Education/Training Program
PROC: 0DB98ZX Excision of Duodenum, Via Natural or Artificial Opening Endoscopic, Diagnostic (ICD-10-PCS; principal; 2016-09-24)
PROC: 0DJD8ZZ Inspection of Lower Intestinal Tract, Via Natural or Artificial Opening Endoscopic (ICD-10-PCS; principal; 2016-09-24)
PROC: 30233N1 Transfusion of Nonautologous Red Blood Cells into Peripheral Vein, Percutaneous Approach (ICD-10-PCS; 2016-09-25)
DX: K29.01 Acute gastritis with bleeding (principal); E43 Unspecified severe protein-calorie malnutrition; E11.65 Type 2 diabetes mellitus with hyperglycemia; E11.51 Type 2 diabetes mellitus with diabetic peripheral angiopathy without gangrene; D62 Acute posthemorrhagic anemia; E87.1 Hypo-osmolality and hyponatremia; K57.30 Diverticulosis of large intestine without perforation or abscess without bleeding; K44.9 Diaphragmatic hernia without obstruction or gangrene; J44.9 Chronic obstructive pulmonary disease, unspecified; I25.10 Atherosclerotic heart disease of native coronary artery without angina pectoris; F41.1 Generalized anxiety disorder; I10 Essential (primary) hypertension; E55.9 Vitamin D deficiency, unspecified; Z95.1 Presence of aortocoronary bypass graft; Z90.710 Acquired absence of both cervix and uterus; Z88.0 Allergy status to penicillin; Z88.2 Allergy status to sulfonamides; Z68.22 Body mass index [BMI] 22.0-22.9, adult; Z79.4 Long term (current) use of insulin; Z83.3 Family history of diabetes mellitus; Z82.49 Family history of ischemic heart disease and other diseases of the circulatory system; Z90.49 Acquired absence of other specified parts of digestive tract; Z79.82 Long term (current) use of aspirin; Z79.84 Long term (current) use of oral hypoglycemic drugs; Z79.899 Other long term (current) drug therapy

== ENCOUNTER 2016-10-25 10:41 | Inpatient (IN) | payer MEDICARE, OTHER ==
[~2016-10-25] VITALS: Ht 157.4 cm; Wt 55.1 kg
[~2016-10-25 10:41] MED LIST changes: +CARAFATE1 G1 PO; +LIDODERM 5% PATC1 EA PO; +PROTONIX40 MG PO; +TYLENOL325 M1 PO; +VITAMIN D5000 UNI1 PO; +VITAMIN D50000 I3 PO
[2016-10-25 10:48] VITALS: BP 138/90
[2016-10-25 11:25] VITALS: BP 109/43
--- NOTE | 2016-10-25 11:30 | NUR ---
PT TELLS ME NOT FEELING ANY BETTER BUT REQUESTS FOOD. PROVIDED BOX LUNCH AND DRINK. FAMILY PRESENT AT BEDSIDE.
--- NOTE | 2016-10-25 11:40 | NUR ---
FEEDING SELF IN BED WITH NO DIFFICULTIES.
[2016-10-25 12:41] LABS: BASO % 0.2 % (0.0-1.0); EOS # 0.1 10*3/uL (0.0-0.4); EOS % 1.4 % (1.0-4.0); HEMOGLOBIN 10.9 g/dl (12.0-16.0); LYMPH # 0.8 10*3/uL (1.3-4.4); LYMPH % 7.6 % (27.0-41.0); MEAN CELL VOLUME 92.1 fl (81.0-99.0); MEAN CORPUSCULAR HGB 28.7 pg (27.0-31.0); MEAN CORPUSCULAR HGB CONC 31.1 g/dl (33.0-37.0); MEAN PLATELET VOLUME 9.3 fl (9.6-12.3); MONO # 0.5 10*3/uL (0.1-1.0); MONO % 4.9 % (3.0-9.0); NEUT # 8.7 10*3/uL (2.3-7.9); NEUT % 85.6 % (47.0-73.0); PLATELET COUNT AUTOMATED 369 10*3/uL (130-400); RED CELL DISTRI WIDTH 14.6 % (0-14.5); WHITE BLOOD COUNT 10.1 10*3/uL (4.8-10.8)
[2016-10-25 12:53] LABS: BUN 20 mg/dl (7-24); CHLORIDE 101 mmol/L (98-107); CREATININE 0.89 mg/dL (0.55-1.02); SODIUM 136 mmol/L (136-145)
[2016-10-25 12:56] LABS: CPK 33 U/L (26-192)
--- NOTE | 2016-10-25 13:10 | NUR ---
PT SITTING UP AT SIDE OF BED VISITING WITH FAMILY. NO DISTRESS.
[2016-10-25 14:13] VITALS: BP 127/56
--- NOTE | 2016-10-25 14:59 | NUR ---
MSADMTime: N A 71 year old FEMALE admitted to under services of KLEVER RATLIFF DO Pt. arrived via bed from ER. Chief complaint: PAIN. JOCELYN ERAZO
[2016-10-25 15:04] VITALS: BP 168/77
[2016-10-25] MEDS ORDERED: NEURONTIN100 MG PO (15:11)
[2016-10-25 16:00] VITALS: BP 168/77
[2016-10-25] MEDS ORDERED: PROTONIX40 MG PO (16:18)
--- NOTE | 2016-10-25 16:20 | NUR ---
NOTIFIED OF HOME MEDICATIONS BEING UPDATED.
[2016-10-25] MEDS ORDERED: NAMZARIC 28 MG1 EACH PO (16:21)
[2016-10-25] MEDS ORDERED: VISTARIL50 MG PO (16:24)
[2016-10-25] MEDS ORDERED: TRAMADOL HCL50 MG PO (16:28)
[2016-10-25] MEDS ORDERED: LIDODERM1 EACH T (16:31)
[2016-10-25 20:00] VITALS: BP 137/60
--- NOTE | 2016-10-25 20:18 | NUR ---
PATIENT LYING IN BED, LEGS ELEVATED. PATIENT ON ROOM AIR WITHOUT PROBLEMS. NO EDEMA NOTED. PATIENT COMPLAINS OF PAIN IN IN HER BACK THAT RADIATES TO HER ARMS AND HANDS. PATIENT COMPLAINED OF BEING HUNGARY. FOOD OBTAINED AND SET UP FOR HER.
[2016-10-25 20:29] LABS: BILIRUBIN NEGATIVE (NEGATIVE); BLOOD NEGATIVE (NEGATIVE); CLARITY CLEAR (CLEAR); COLOR YELLOW (YELLOW); GLUCOSE NEGATIVE (NEGATIVE); KETONE NEGATIVE (NEGATIVE); LEUKO ESTERASE NEGATIVE (NEGATIVE); NITRITE NEGATIVE (NEGATIVE); PH 5.5 (5.0-9.0); UROBILINOGEN 0.2 E.U./dl (0.2-1.0)
[2016-10-25 20:38] LABS: BACTERIA TRACE
[2016-10-25 20:39] LABS: RBC 0-2 rbc/hpf (0-2)
--- NOTE | 2016-10-25 22:35 | NUR ---
PATIENT GIVEN PAIN MEDICATION REQUESTED FOR ARM AND HAND PAIN -9 ON SCALE OF 1-10. PATIENT REQUESTED BOX LUNCH, STATED THAT SHE WAS VERY HUNGARY. PATIENT REFUSED INSULIN, BGM= [phone]. EXPLAINED TO PATIENT WHY SHE WAS ORDERED INSULIN AND SHE STATED SHE WAS NOT TAKING IT.
--- NOTE | 2016-10-25 23:00 | NUR ---
PAIN MEDICATION EFFECTIVE, PAIN SUBSIDED- 06/08
[2016-10-26] VITALS: BP 136/62
[2016-10-26 04:00] VITALS: BP 138/64
[2016-10-26 05:46] LABS: BASO % 0.2 % (0.0-1.0); EOS # 0.1 10*3/uL (0.0-0.4); EOS % 1.5 % (1.0-4.0); HEMATOCRIT 33.4 % (37.0-47.0); HEMOGLOBIN 10.5 g/dl (12.0-16.0); LYMPH # 1.5 10*3/uL (1.3-4.4); LYMPH % 17.1 % (27.0-41.0); MEAN CELL VOLUME 91.5 fl (81.0-99.0); MEAN CORPUSCULAR HGB 28.8 pg (27.0-31.0); MEAN CORPUSCULAR HGB CONC 31.4 g/dl (33.0-37.0); MEAN PLATELET VOLUME 9.2 fl (9.6-12.3); MONO # 0.8 10*3/uL (0.1-1.0); MONO % 8.9 % (3.0-9.0); NEUT # 6.1 10*3/uL (2.3-7.9); NEUT % 71.9 % (47.0-73.0); PLATELET COUNT AUTOMATED 375 10*3/uL (130-400); RED BLOOD COUNT 3.65 10*6/uL (4.10-5.10); RED CELL DISTRI WIDTH 14.6 % (0-14.5); WHITE BLOOD COUNT 8.5 10*3/uL (4.8-10.8)
[2016-10-26 06:08] LABS: ACT PARTIAL THROMBO TIME 28.7 SECONDS (20.8-31.5); ALBUMIN 2.9 gm/dl (3.1-4.5); ALKALINE PHOSPHATASE 81 U/L (45-117); BUN 17 mg/dl (7-24); CHLORIDE 102 mmol/L (98-107); CHOLESTEROL 156 mg/dL (<200); HDL CHOLESTEROL 40 mg/dl (40-60); LDL CHOLESTEROL 81 mg/dL (9-159); POTASSIUM 4.1 mmol/L (3.5-5.1); SGOT/AST 7 IU/L (3-35); SGPT/ALT 9 U/L (12-78); SODIUM 137 mmol/L (136-145); TOTAL PROTEIN 7.2 gm/dL (6.4-8.2); TRIGLYCERIDES 175 mg/dl (<150); VLDL CHOLESTEROL 35 mg/dL (6-40)
[2016-10-26 06:13] LABS: THYROID STIM HORMONE (HS) 0.367 uIU/ml (0.358-4.75)
[2016-10-26 08:00] VITALS: BP 176/88
--- NOTE | 2016-10-26 08:00 | NUR ---
PIANO MACHINE OPERATOR VS. NURSE A T BEDSIDE. WILL ASK PASTEURIZER HELPER TO SEE PT JUST LEFT [facility] 4 DAYS BEFORE THIS ADM.
--- NOTE | 2016-10-26 09:04 | NUR ---
Message left on 's voice mail to call this administrator social welfare in order to discuss discharge plans. Will continue to follow.
--- NOTE | 2016-10-26 09:20 | NUR ---
Son, Iggy, contacted this group social worker-stated the goal is for Mrs. Martinez to return home. She was recently discharged from [facility] and was doing well at home with home health and home therapy. Son stated she had a sudden onset of pain in her shoulder, arm, and hands. He is hoping pain will resolve in hospital and that she could return home. He indicated that he is the primary caregiver of his mother. Her is also at home and assists as well. She has necessary DME and had home health. Will continue to follow as needed.
--- NOTE | 2016-10-26 09:36 | NUR ---
PER CALL FROM [facility], PT HAS THEIR SERVICES.
--- NOTE | 2016-10-26 10:27 | NUR ---
PHYSICAL THERAPY PAtient evaluated on 4, full evalaution to follow. Continue with PT as per plan of care with fall, severe acute pain and debility (B) UE and hands and acuted debility precautions. May require SNF for impaired mobility in order to return to home. PAtient is moderate complexity via chart review, tests and evalution: 22204. Thank you for this referral. Jacinta Robertson ,PT
[2016-10-26 12:00] VITALS: BP 109/62
--- NOTE | 2016-10-26 12:46 | NUR ---
PHYSICAL THERAPY Shelby seen this PM 1:1 for her therapy session. Pt having C/O bilateral hand pain, and may need stronger medication. Transfer supine/sait MIN A X 1, sitting balance supervision x 1, sit/stand and standing balance MIN A X 1. Then gait total 190' X 1, Pt has IV Pole and MOD POLYMER CHEMIST X 1, with cueing for gait, balance turn safety with no LOB this visit. Pt back supine in bed, call light and going to rest now. AMAURY PINO OUTSIDE SALES.
[2016-10-26 16:00] VITALS: BP 138/52
[2016-10-26 20:00] VITALS: BP 148/51
--- NOTE | 2016-10-26 20:33 | NUR ---
PT. HAS PAIN IN HANDS AND SHOULDER THAT IS AGGRIVATED BY MOVEMENT. PT. RATES PAIN A 8:10 AND PRN MORPHINE WAS GIVEN.
--- NOTE | 2016-10-26 20:50 | NUR ---
PT. STILL IN PAIN AT THIS TIME. RATES PAIN A TOLERABLE 6:10 WOULD LIKE ANOTHER PRN PAIN MEDICATION WITH 2200 MEDS.
--- NOTE | 2016-10-26 22:28 | NUR ---
PRN PERCOCET GIVEN FOR PAIN IN HANDS AND SHOULDERS. PT. RATES PAIN A 7:10.
--- NOTE | 2016-10-26 22:58 | NUR ---
UPON REEVALUATING PRN PAIN MEDICATION GIVEN, PT. STATES SHE STILL HAS PAIN IN HER HANDS AND SHOULDERS. RATING A 8:10 WOULD LIKE SOMETHING ELSE FOR PAIN.
[2016-10-27] VITALS: BP 128/65
--- NOTE | 2016-10-27 00:46 | NUR ---
PT. GIVEN PRN MORPHINE FOR PAIN IN HANDS AND SHOULDERS.
--- NOTE | 2016-10-27 01:00 | NUR ---
PRN MORPHINE SEEMS TO BE EFFECTIVE. PATIENT RESTING COMFORTABLY, RESPIRATIONS EASY AND REGULAR WITH NO DISTRESS.
[2016-10-27 05:57] LABS: BASO % 0.1 % (0.0-1.0); HEMATOCRIT 30.7 % (37.0-47.0); HEMOGLOBIN 9.4 g/dl (12.0-16.0); LYMPH # 0.7 10*3/uL (1.3-4.4); LYMPH % 9.4 % (27.0-41.0); MEAN CELL VOLUME 92.2 fl (81.0-99.0); MEAN CORPUSCULAR HGB 28.2 pg (27.0-31.0); MEAN CORPUSCULAR HGB CONC 30.6 g/dl (33.0-37.0); MEAN PLATELET VOLUME 9.7 fl (9.6-12.3); MONO # 0.2 10*3/uL (0.1-1.0); MONO % 2.4 % (3.0-9.0); NEUT # 6.8 10*3/uL (2.3-7.9); NEUT % 87.6 % (47.0-73.0); PLATELET COUNT AUTOMATED 368 10*3/uL (130-400); RED BLOOD COUNT 3.33 10*6/uL (4.10-5.10); RED CELL DISTRI WIDTH 14.6 % (0-14.5); WHITE BLOOD COUNT 7.8 10*3/uL (4.8-10.8)
[2016-10-27 06:27] LABS: BUN 20 mg/dl (7-24); CHLORIDE 102 mmol/L (98-107); POTASSIUM 4.2 mmol/L (3.5-5.1); SODIUM 135 mmol/L (136-145)
[2016-10-27 06:30] LABS: CREATININE 0.71 mg/dL (0.55-1.02); MAGNESIUM 1.3 mg/dL (1.5-2.1); PHOSPHOROUS 2.8 mg/dL (2.5-4.9)
[2016-10-27 08:00] VITALS: BP 166/72
--- NOTE | 2016-10-27 09:09 | NUR ---
PT GIVEN PRN IV ZOFRAN FOR COMPLAINTS OF NAUSEA. WILL MONITOR EFFECTIVENESS.
--- NOTE | 2016-10-27 09:19 | NUR ---
PHYSICAL THERAPY Shelby seen this AM 1:1 for her physical therapy session. All transfers were CGA X 1, no LOB. Followed by gait total 230' X 1, CGA X 1, no LOB just cueing to slow gait down for her safety, but did well. Pt back supine in bed for her breakfast, and bilateral hands a little better today with overall pain, treatment time 17 min. AMAURY PINO ADVANCE AGENT.
--- NOTE | 2016-10-27 11:46 | NUR ---
ball worker met with patient to discuss recommendation for skilled care. Shelby indicated that she will do whatever "they" want me to do. She is participating in therapy and has made good progress. She indicated that the pain in her arms and shoulders has lessened. She gave this community mental health social worker permission to call her son, Brayan. ball worker spoke with Brayan. Discussed progress in therapy. Son indicated that he would like his mother to return home and resume services of [facility]. She was receiving therapy and nursing care. He stated that he will be visiting his mother this afternoon and will left this community mental health social worker know if plans need changed.
[2016-10-27 12:00] VITALS: BP 112/48
[2016-10-27 16:00] VITALS: BP 119/78
[2016-10-27 20:00] VITALS: BP 148/63
--- NOTE | 2016-10-27 22:07 | NUR ---
PRN RESTORIL GIVEN FOR INSOMNIA.
--- NOTE | 2016-10-27 22:08 | NUR ---
PRN BENADRYL GIVEN PER PT. REQUEST FOR ITCHING.
--- NOTE | 2016-10-27 22:38 | NUR ---
PRN BENADRYL EFFECTIVE PER PT. STATES ITCHING HAS STOPPED.
--- NOTE | 2016-10-27 22:48 | NUR ---
PRN NORCO 5-325 GIVEN PER PT. REQUEST FOR PAIN IN HER SHOULDERS. PT. RATES PAIN A 6:10.
--- NOTE | 2016-10-27 23:18 | NUR ---
PRN NORCO EFFECTIVE, PT. RESTING COMFORTABLY RESPIRATIONS NON LABORED ON RA, NO DISTRESS NOTED AT THIS TIME.
[2016-10-28] VITALS: BP 156/75
--- NOTE | 2016-10-28 04:05 | NUR ---
PRN MORPHINE GIVEN TO PT. FOR PAIN IN THE HANDS AND SHOULDERS, PT. RATED PAIN A 10 ON A SCALE OF 1-10.
--- NOTE | 2016-10-28 04:30 | NUR ---
PRN MORPHINE GIVEN TO PT FOR PAIN IN THE HANDS AND SHOULDERS RATING OF A 10:10.
--- NOTE | 2016-10-28 04:31 | NUR ---
PRN MORPHINE EFFECTIVE. PT. RESTING COMFORTABLY RESPIRATIONS ARE NONLABORED AND NO DISTRESS NOTED.
--- NOTE | 2016-10-28 04:55 | NUR ---
24 HR chart check completed.
[2016-10-28 07:03] LABS: HEMATOCRIT 32.8 % (37.0-47.0); LYMPH # 0.9 10*3/uL (1.3-4.4); LYMPH % 8.6 % (27.0-41.0); MEAN CELL VOLUME 92.4 fl (81.0-99.0); MEAN CORPUSCULAR HGB 28.2 pg (27.0-31.0); MEAN CORPUSCULAR HGB CONC 30.5 g/dl (33.0-37.0); MEAN PLATELET VOLUME 9.6 fl (9.6-12.3); MONO # 0.3 10*3/uL (0.1-1.0); MONO % 2.8 % (3.0-9.0); NEUT # 9.2 10*3/uL (2.3-7.9); PLATELET COUNT AUTOMATED 368 10*3/uL (130-400); RED BLOOD COUNT 3.55 10*6/uL (4.10-5.10); RED CELL DISTRI WIDTH 14.3 % (0-14.5); WHITE BLOOD COUNT 10.4 10*3/uL (4.8-10.8)
[2016-10-28 07:08] LABS: BUN 20 mg/dl (7-24); CHLORIDE 102 mmol/L (98-107); CREATININE 0.62 mg/dL (0.55-1.02); MAGNESIUM 1.6 mg/dL (1.5-2.1); POTASSIUM 4.4 mmol/L (3.5-5.1); SODIUM 138 mmol/L (136-145)
--- NOTE | 2016-10-28 07:47 | NUR ---
Medicated with norco per prn order for complaints of generalized body aches and pains.
[2016-10-28 08:00] VITALS: BP 172/64
--- NOTE | 2016-10-28 08:30 | NUR ---
States that medication given earlier for pain was effective.
--- NOTE | 2016-10-28 09:34 | NUR ---
PHYSICAL THERAPY Shelby seen this AM 1:1 for her therapy gait. All transfers were CGA X 1 with standing balance. Pt had IV Pole, gait total 240' X 1, with 2-3 slight LOB and recover by Pt. Pt given verbal cues for gait, balance safety and to slow her gait down. Pt back supine in bed, call light and no complaints, treatment time 17 min. AMAURY PINO STRAIGHTENER HAND.
--- NOTE | 2016-10-28 10:13 | NUR ---
Medicated with benedryl po per prn order for c/o itching.
--- NOTE | 2016-10-28 11:34 | NUR ---
States that benedryl was effective but is requesting something for anxiety. medicated with vistaril per prn order.
[2016-10-28 12:00] VITALS: BP 133/61
--- NOTE | 2016-10-28 12:12 | NUR ---
Occupational Therapy evaluation completed on 4 with full eval to follow. Precautions include fall risk, impaired memory, inability to care for self at home, low complexity level, c/o LUE pain. Recommend OT per POC and home health OT upon d/c. Thank you for this referral. Magaly Ramachandran OTR/l
--- NOTE | 2016-10-28 12:20 | NUR ---
States that vistaril effective.
--- NOTE | 2016-10-28 12:51 | NUR ---
Son, Iggy, contacted this social welfare research worker and stated last night while visiting his mother requested placement at [facility]. Referral was made. This social welfare research worker met with Shelby, her other son, Monster, was visiting. Asked if she wanted to be admitted to [facility]. Stated she was still having pain and probably should go. Monster asked to be updated on her progress in therapy. Update given. Discussion took place regarding home health services with home therapy versus [facility]. It was decided between son and Shelby that she would return home with and son to assist. Resumption of [facility]. Encouraged them to call social work faculty member if Shelby changes her mind even after discharge. that Shelby would return home with and sons so assist. Resumption of [facility]. .
[2016-10-28] MEDS ORDERED: Percocet 325 MG1 TAB PO (13:27)
[2016-10-28] MEDS ORDERED: B12,B-12,B 12500 MC1 PO (13:27)
[2016-10-28] MEDS ORDERED: DIPHENHYDRAMINE25 M2 PO (13:27)
[2016-10-28] MEDS ORDERED: PREDNISONE50 MG PO (13:27)
--- NOTE | 2016-10-28 14:20 | NUR ---
I called pt fitz Schmidt regarding order for Dc states someone will be here within a hour to pick up operator pt.
--- NOTE | 2016-10-28 14:55 | NUR ---
Patient is being discharged to home to [facility]. [facility] and [facility] clincals to resume services.
--- NOTE | 2016-10-28 15:30 | NUR ---
PHYSICAL THERAPY CO-SIGN I approve of the Phyical Therapy notes written above. NU STANLEY PT
--- NOTE | 2016-10-28 15:40 | NUR ---
Discharge instructions reviewed with patient/family. Patient receptive and verbalizes understanding. Follow-up care arranged. Written instructions given to patient/family. Reviewed medications with pt son, including what meds were added, when to start them, where to pick them up (electronically prescribed meds), what medications pt already had today and what she will need tonight. Son takes care of her medications and verbalized understanding. CLEMENCIA OCAMPO
--- NOTE | 2016-10-28 16:07 | NUR ---
Discharged in care of and son via wheelchair with assist of PA.
== END 2016-10-28 16:07 | disposition home health service (06) | DRG 545 ==
LOC: ED 10:41 → 4E 14:10 → EDHOLD 14:10 → 4E 14:28
PROVIDERS: Emergency Medicine; Family Medicine; Internal Medicine Hospice and Palliative Medicine; Internal Medicine Nephrology; ADMIT Internal Medicine
DX: M35.3 Polymyalgia rheumatica (principal); E43 Unspecified severe protein-calorie malnutrition; E11.51 Type 2 diabetes mellitus with diabetic peripheral angiopathy without gangrene; J44.9 Chronic obstructive pulmonary disease, unspecified; F03.90 Unspecified dementia, unspecified severity, without behavioral disturbance, psychotic disturbance, mood disturbance, and anxiety; K26.9 Duodenal ulcer, unspecified as acute or chronic, without hemorrhage or perforation; E87.1 Hypo-osmolality and hyponatremia; M13.0 Polyarthritis, unspecified; I25.10 Atherosclerotic heart disease of native coronary artery without angina pectoris; I10 Essential (primary) hypertension; F41.1 Generalized anxiety disorder; R70.0 Elevated erythrocyte sedimentation rate; D64.9 Anemia, unspecified; E55.9 Vitamin D deficiency, unspecified; G47.00 Insomnia, unspecified; E53.8 Deficiency of other specified B group vitamins; K44.9 Diaphragmatic hernia without obstruction or gangrene; Z87.891 Personal history of nicotine dependence; Z95.1 Presence of aortocoronary bypass graft; Z90.49 Acquired absence of other specified parts of digestive tract; Z90.710 Acquired absence of both cervix and uterus; Z88.0 Allergy status to penicillin; Z88.2 Allergy status to sulfonamides; Z91.041 Radiographic dye allergy status; Z82.5 Family history of asthma and other chronic lower respiratory diseases; Z82.49 Family history of ischemic heart disease and other diseases of the circulatory system; Z83.3 Family history of diabetes mellitus; Z79.84 Long term (current) use of oral hypoglycemic drugs; Z79.899 Other long term (current) drug therapy

== ENCOUNTER 2016-11-06 18:32 | Emergency (ER) | payer MEDICARE, OTHER ==
[~2016-11-06] VITALS: Ht 157.4 cm; Wt 63.5 kg
[~2016-11-06 18:32] MED LIST changes: +B12,B-12,B 12500 MC1 PO; +DIPHENHYDRAMINE25 M2 PO; +LIDODERM1 EACH T; +NAMZARIC 28 MG1 EACH PO; +NEURONTIN100 MG PO; +PREDNISONE50 MG PO; +Percocet 325 MG1 TAB PO; +TRAMADOL HCL50 MG PO; +VISTARIL50 MG PO
== END 2016-11-06 21:29 | disposition home or self-care (01) ==
LOC: ED 18:32
DX: G89.29 Other chronic pain (principal); M54.5 Low back pain; Z91.041 Radiographic dye allergy status; Z88.0 Allergy status to penicillin; Z88.2 Allergy status to sulfonamides; Z79.899 Other long term (current) drug therapy; Z87.891 Personal history of nicotine dependence

== ENCOUNTER 2016-12-11 11:20 | Emergency (ER) | payer MEDICARE, OTHER ==
[~2016-12-11] VITALS: Ht 157.4 cm; Wt 59.0 kg
[2016-12-11 11:57] LABS: BASO # 0.1 10*3/uL (0.0-0.1); BASO % 0.6 % (0.0-1.0); EOS # 0.3 10*3/uL (0.0-0.4); EOS % 3.8 % (1.0-4.0); HEMATOCRIT 35.4 % (37.0-47.0); HEMOGLOBIN 11.2 g/dl (12.0-16.0); LYMPH # 1.3 10*3/uL (1.3-4.4); LYMPH % 16.1 % (27.0-41.0); MEAN CELL VOLUME 88.1 fl (81.0-99.0); MEAN CORPUSCULAR HGB 27.9 pg (27.0-31.0); MEAN CORPUSCULAR HGB CONC 31.6 g/dl (33.0-37.0); MEAN PLATELET VOLUME 9.2 fl (9.6-12.3); MONO # 0.5 10*3/uL (0.1-1.0); MONO % 6.1 % (3.0-9.0); NEUT # 5.7 10*3/uL (2.3-7.9); PLATELET COUNT AUTOMATED 323 10*3/uL (130-400); RED BLOOD COUNT 4.02 10*6/uL (4.10-5.10); RED CELL DISTRI WIDTH 15.2 % (0-14.5); WHITE BLOOD COUNT 7.8 10*3/uL (4.8-10.8)
[2016-12-11 12:05] LABS: ACT PARTIAL THROMBO TIME 27.5 SECONDS (20.8-31.5); INTERNATIONAL NORM RATIO 1.1 (2.0-3.5)
[2016-12-11 12:16] LABS: ALBUMIN 3.4 gm/dl (3.1-4.5); ALKALINE PHOSPHATASE 82 U/L (45-117); BUN 25 mg/dl (7-24); CHLORIDE 106 mmol/L (98-107); CREATININE 1.04 mg/dL (0.55-1.02); MAGNESIUM 1.4 mg/dL (1.5-2.1); POTASSIUM 4.2 mmol/L (3.5-5.1); SGOT/AST 15 IU/L (3-35); SGPT/ALT 18 U/L (12-78); SODIUM 142 mmol/L (136-145); TOTAL PROTEIN 7.4 gm/dL (6.4-8.2)
[2016-12-11 12:18] LABS: TROPONIN I < 0.015 ng/ml (<0.045)
[2016-12-11] MEDS ORDERED: PREDNISONE10 MG PO (12:31)
== END 2016-12-11 12:36 | disposition home or self-care (01) ==
LOC: ED 11:20
PROVIDERS: Nurse Practitioner Family
DX: M35.3 Polymyalgia rheumatica (principal); R03.0 Elevated blood-pressure reading, without diagnosis of hypertension; I25.10 Atherosclerotic heart disease of native coronary artery without angina pectoris; J44.9 Chronic obstructive pulmonary disease, unspecified; M13.0 Polyarthritis, unspecified; Z87.891 Personal history of nicotine dependence; Z91.041 Radiographic dye allergy status; Z88.0 Allergy status to penicillin; Z88.2 Allergy status to sulfonamides; Z79.899 Other long term (current) drug therapy

== ENCOUNTER 2017-01-04 13:38 | Inpatient (IN) | payer MEDICARE, OTHER ==
[~2017-01-04] VITALS: Ht 157.4 cm; Wt 57.6 kg
[~2017-01-04 13:38] MED LIST changes: +PREDNISONE10 MG PO
[2017-01-04 13:43] VITALS: BP 88/90
[2017-01-04 14:59] LABS: BASO % 0.2 % (0.0-1.0); EOS # 0.1 10*3/uL (0.0-0.4); EOS % 0.9 % (1.0-4.0); HEMATOCRIT 31.2 % (37.0-47.0); HEMOGLOBIN 9.9 g/dl (12.0-16.0); LYMPH # 0.8 10*3/uL (1.3-4.4); LYMPH % 8.3 % (27.0-41.0); MEAN CELL VOLUME 86.9 fl (81.0-99.0); MEAN CORPUSCULAR HGB 27.6 pg (27.0-31.0); MEAN CORPUSCULAR HGB CONC 31.7 g/dl (33.0-37.0); MEAN PLATELET VOLUME 9.5 fl (9.6-12.3); MONO # 0.6 10*3/uL (0.1-1.0); MONO % 6.1 % (3.0-9.0); NEUT # 8.3 10*3/uL (2.3-7.9); PLATELET COUNT AUTOMATED 299 10*3/uL (130-400); RED BLOOD COUNT 3.59 10*6/uL (4.10-5.10); RED CELL DISTRI WIDTH 16.8 % (0-14.5); WHITE BLOOD COUNT 9.9 10*3/uL (4.8-10.8)
--- NOTE | 2017-01-04 15:06 | NUR ---
THE PATIENT WAS PLACED ON A PORTABLE POTTY TO COLLECT A URINE SAMPLE
--- NOTE | 2017-01-04 15:12 | NUR ---
THE URINE SAMPLE WAS OBTAINED. THE PT WAS PLACED BACK INTO THE BED
[2017-01-04 15:16] LABS: ALBUMIN 3.1 gm/dl (3.1-4.5); CREATININE 1.11 mg/dL (0.55-1.02); POTASSIUM 4.7 mmol/L (3.5-5.1); TOTAL PROTEIN 6.5 gm/dL (6.4-8.2)
[2017-01-04 16:57] VITALS: BP 104/64
[2017-01-04 17:15] VITALS: BP 97/57
--- NOTE | 2017-01-04 17:15 | NUR ---
MSADMTime: 1714 A 71 year old FEMALE admitted to 4E under services of DELON BRADFORD DO. Pt. arrived via bed from ER. Chief complaint: PAIN, WEAKNESS. JOCELYN ERAZO
--- NOTE | 2017-01-04 18:29 | NUR ---
SPOKE WITH DR. VICENTE REGARDING PT'S IV ACESS. HE STATED HE WOULD SPEAK WITH WOOD BOX MAKER REGARDING THE ISSUE.
--- NOTE | 2017-01-04 19:35 | NUR ---
DOCTORS AT BEDSIDE TO DISCUSS PLACEMENT OF CENTRAL LINE D/T NO IV ACCESS AFTER MUTLIPLE ATTEMPTS. IV ACCESS ATTEMPTED [address] DECIDED TO NOT PLACE CENTRAL LINE AND MAKE PT MEDICATIONS PO.
--- NOTE | 2017-01-04 20:00 | NUR ---
ASSUMED CARE OF PATIENT. ASSESSMENT COMPLETE. DENIES FURTHER NEEDS AT THIS TIME. CALL LIGHT IN REACH. WILL CONTINUE TO MONITOR.
--- NOTE | 2017-01-04 21:58 | NUR ---
PT RECEIVED NORCO FOR PAIN RATED 8/10. PT ALSO RECEIVED RESTORIL FOR AID WITH SLEEP.
[2017-01-05] VITALS (9 sets, daily range): BP systolic 99–192; BP diastolic 55–96
--- NOTE | 2017-01-05 00:30 | NUR ---
PT SEEMS TO BE RESTING BETTER.
--- NOTE | 2017-01-05 02:26 | NUR ---
PT RECEIVED NORCO FOR PAIN RATED 8/10.
--- NOTE | 2017-01-05 03:30 | NUR ---
EARLIER NORCO APPEARS TO BE EFFECTIVE, PT SLEEPING. NO DISTRESS NOTED. BED ALARM ON. CALL LIGHT IN REACH. WILL CONTINUE TO MONITOR.
[2017-01-05 05:38] LABS: BILIRUBIN NEGATIVE (NEGATIVE); BLOOD NEGATIVE (NEGATIVE); CLARITY CLEAR (CLEAR); COLOR YELLOW (YELLOW); GLUCOSE NEGATIVE (NEGATIVE); KETONE NEGATIVE (NEGATIVE); LEUKO ESTERASE NEGATIVE (NEGATIVE); NITRITE NEGATIVE (NEGATIVE); PH 5.5 (5.0-9.0); UROBILINOGEN 0.2 E.U./dl (0.2-1.0)
[2017-01-05 05:56] LABS: BACTERIA TRACE
[2017-01-05 06:22] LABS: BASO % 0.1 % (0.0-1.0); EOS % 0.1 % (1.0-4.0); HEMATOCRIT 31.5 % (37.0-47.0); HEMOGLOBIN 10.2 g/dl (12.0-16.0); LYMPH # 0.7 10*3/uL (1.3-4.4); LYMPH % 7.7 % (27.0-41.0); MEAN CORPUSCULAR HGB 28.2 pg (27.0-31.0); MEAN CORPUSCULAR HGB CONC 32.4 g/dl (33.0-37.0); MEAN PLATELET VOLUME 9.7 fl (9.6-12.3); MONO # 0.1 10*3/uL (0.1-1.0); MONO % 1.5 % (3.0-9.0); NEUT # 8.3 10*3/uL (2.3-7.9); NEUT % 89.8 % (47.0-73.0); PLATELET COUNT AUTOMATED 301 10*3/uL (130-400); RED BLOOD COUNT 3.62 10*6/uL (4.10-5.10); RED CELL DISTRI WIDTH 16.7 % (0-14.5); WHITE BLOOD COUNT 9.3 10*3/uL (4.8-10.8)
[2017-01-05 06:40] LABS: CREATININE 1.21 mg/dL (0.55-1.02); POTASSIUM 5.4 mmol/L (3.5-5.1)
[2017-01-05 06:52] LABS: ACT PARTIAL THROMBO TIME 31.9 SECONDS (20.8-31.5)
[2017-01-05 06:59] LABS: VITAMIN D, 25-HYDROXY 28.8 ng/mL (30-100)
[2017-01-05 07:51] LABS: THYROID STIM HORMONE (HS) 0.349 uIU/ml (0.358-4.75)
--- NOTE | 2017-01-05 08:29 | NUR ---
PATIENT IS RESTING IN BED. PATIENT HAS NO IV ACCESS AT THIS TIME. PATIENT HAS GENERALIZED PAIN THAT IS STRONGER IN THE WRISTS, LOWER BACK, AND KNEES. PAIN IS RATED A 5/10. PATIENT DENIES AND SOB, N/V/D. PATIENT IS AMBULATORY AND IS ABLE TO USE THE BEDSIDE COMMODE WITH ASSIST. CALL LIGHT IS WITHIN REACH. SEE SHIFT ASSESSMENT. PATIENT HAS A STUDENT NURSE THIS MORNING THAT WILL BE DOING MEDICATIONS AND CHARTING.
--- NOTE | 2017-01-05 08:36 | NUR ---
IV started left forearm with #22 angiocath after 3 attempts. The IV site was prepped with Chloraprep. Heparin lock attached. Sterile dressing applied. Patient tolerated precedure well. Procedure performed according to [facility] policy & procedure. JOSE L HINOJOSA
--- NOTE | 2017-01-05 09:02 | NUR ---
PHYSICAL THERAPY PAtient with nurse ansd then student nurse. Jacinta Robertson,PT
--- NOTE | 2017-01-05 11:38 | NUR ---
In to see patient to discuss discharge plans. Patient stated she is having a difficult time getting around at home but she lives with her son and who help her. She stated if she is left home alone for short periods of time she just stays in bed until they come back home to help her. I asked if she was interested in VNA or SNF rehab. She asked me to call her and ask him those questions. Called and spoke to Brayan. He stated she has been to [facility] in the past and would be ok with her returning for a short period of time as long as there isn't a copay. He also stated she had [facility] but was recently discharged by the nurse. They had her set up for out patient therapy at [facility] but had to cancel her first appointment due to being admitted into the hospital. Faxed referral to Anjelica at [facility] and asked her to check benefits for any copay as patients family can't afford one. Will follow.
--- NOTE | 2017-01-05 11:43 | NUR ---
PHYSICAL THERAPY Patient evaluated on 4, full evaluation to follow. Continue with PT as per plan of care with fall, acute debility and vertigo precauaitons. Will require SNF for impaired mobility. PAtient is moderate complexity via chart review, tests and evaluation: 72223. Thank you for this referral. Jacinta Robertson,PT
--- NOTE | 2017-01-05 12:32 | NUR ---
PHYSICAL THERAPY Shelby seen this PM 1:1 for her therapy session. Pt having acute debility precautions, and vertigo precautions, Pt had IV Pole this gait. Transfer supine/sit MIN A X 1, sitting balance once up supervision X 1. Sit/stand and standing balance MOD A X 1. Gait with MOD PAINTER RAILROAD CAR X 1, 65' X 2, with one sitting rest and had verbal cueing for gait safety, balance and her turns with one standing rest with this. Pt back supine in bed and working in act Ex to romarioatrdaniel LE of heel slides with left knee pain, ankle pumps, quad sets and just working to Pt's tolerance this my first visit with Shelby. Pt with call light and her phone, bed alarm on. AMAURY PINO COOK ICE CREAM.
--- NOTE | 2017-01-05 12:35 | NUR ---
PATIENT IS SITTING UP IN BED. PATIENT IS ABLE TO AMBULATE WITH ASSIST. PATIENT HAS CHRONIC PAIN THAT IS LOCATED IN THE WRISTS, BACK AND KNEES. PATIENT HAS BEEN PLEASANT AND COOPERATIVE THROUGHOUT THE SHIFT, BUT HAS TROUBLE REMEMBERING EVENTS AND HAS BEEN REPEATEDLY FORGETFUL. CALL LIGHT IS WITHIN REACH. PATIENT REORIENTED TO THE ROOM. SEE SHIFT ASSESSMENT.
--- NOTE | 2017-01-05 14:47 | NUR ---
[facility] and becuase she has a secondary she will not have any copay. Discussed this with patient who is agreeable to go. Patient has been accepted but requires a 3 night stay in the hospital first. Patient is ok to go on 01/07/17 ().
--- NOTE | 2017-01-05 15:15 | NUR ---
PATIENT GIVEN NORCO PER PT REQUEST FOR PAIN RATED A 10/10 LOCATED IN THE WRISTS AND ARMS THAT IS DESCRIBED SHARP AND STABBING. WILL CONTINUE TO MONITOR AND REASSESS.
--- NOTE | 2017-01-05 16:15 | NUR ---
PATIENT PAIN WAS REDUCED EVIDENCE BY PATIENT VERBALIZING A PAIN LEVEL OF 4/10 AND RESTING EASILY IN BED. WILL CONTINUE TO MONITOR.
--- NOTE | 2017-01-05 16:30 | NUR ---
UPDATED MED LIST WITH PT AND HER LIST.
--- NOTE | 2017-01-05 18:32 | NUR ---
PATIENT IS CURRENTLY IN BED. PATIENT HAS CHRONIC PAIN IN THE BACK, WRISTS, AND KNEES THAT GRADUALLY INCREASE TO A SHARP PAIN. PATIENT HAS BEEN ENCOURAGED TO REPOSITION FOR COMFORT. PATIENT DENIES AND N/V/D THROUGHOUT THE SHIFT. PATIENT HAS BEEN ABLE TO AMBULATE TO THE BEDSIDE COMMODE WITH MINIMAL ASSIST. PATIENT HAS BEEN PLEASANT AND COOPERATIVE UPON ASSESSMENTS AND THROUGHOUT THE SHIFT. PATIENT HAS FREQUENT PERIODS OF FORGETFULNESS BUT REMAINS ALERT AND ORIENTED X3. PATIENT WAS REORIENTED TO THE ROOM AND CALL LIGHT SYSTEM. SEE SHIFT ASSESSMENT.
--- NOTE | 2017-01-05 20:30 | NUR ---
DR STEELE UP ON FLOOR. SPOKE TO HER REGARDING PT HAVING VAGINAL ITCHING AND PAIN. ORDER RECEIVED
--- NOTE | 2017-01-05 21:32 | NUR ---
PTS BP READ 192/96, TOOK A MANUAL THAT READ 185/86. CALLED DR DALTON, HE ASKED FOR BP TO BE RECHECKED IN AN HOUR AND TO BE REPORTED TO HIM.
--- NOTE | 2017-01-05 21:33 | NUR ---
PT RECEIVED NORCO FOR PAIN RATED 8/10.
--- NOTE | 2017-01-05 22:30 | NUR ---
PT STATES PAIN HAS REDUCED.
--- NOTE | 2017-01-05 22:40 | NUR ---
RECHECKED PTS BLOOD PRESSURE ORDERED. RESULT WAS 192/86. CALLED DR EDGAR DALTON AND MADE HIM AWARE. SAID TO RECHECK IN AN HOUR AFTER ADMINISTRATION OF COREG AND AMLODIPINE AND UPDATE HIM ON HER BLOOD PRESSURE.
--- NOTE | 2017-01-05 23:39 | NUR ---
BP RECHECK 182/96. CALLED AND MADE DR DALTON AWARE. HE SAID HE WILL TAKE A LOOK AND PUT SOMETHING IN
[2017-01-06] VITALS (8 sets, daily range): BP systolic 111–190; BP diastolic 51–98
--- NOTE | 2017-01-06 00:42 | NUR ---
NO ORDERS RECEIVED FOR BP MEDICATION. BP RECHECKED 190/98. CALLED AND MADE DR DALTON AWARE. HE STATES HE WILL PUT SOMETHING IN.
--- NOTE | 2017-01-06 01:06 | NUR ---
DR DALTON UP ON FLOOR TO SEE PATIENT
--- NOTE | 2017-01-06 02:23 | NUR ---
PT RECEIVED NORCO FOR PAIN RATED 8/10
--- NOTE | 2017-01-06 02:36 | NUR ---
BP RECHECK AFTER IV HYDRALAZINE 146/78
--- NOTE | 2017-01-06 06:33 | NUR ---
BP RECHECK 122/70
[2017-01-06 07:29] LABS: BASO % 0.4 % (0.0-1.0); EOS # 0.2 10*3/uL (0.0-0.4); EOS % 2.9 % (1.0-4.0); HEMATOCRIT 30.9 % (37.0-47.0); HEMOGLOBIN 9.8 g/dl (12.0-16.0); LYMPH # 1.6 10*3/uL (1.3-4.4); LYMPH % 20.4 % (27.0-41.0); MEAN CELL VOLUME 87.5 fl (81.0-99.0); MEAN CORPUSCULAR HGB 27.8 pg (27.0-31.0); MEAN CORPUSCULAR HGB CONC 31.7 g/dl (33.0-37.0); MEAN PLATELET VOLUME 9.2 fl (9.6-12.3); MONO # 0.8 10*3/uL (0.1-1.0); NEUT # 5.3 10*3/uL (2.3-7.9); NEUT % 65.9 % (47.0-73.0); PLATELET COUNT AUTOMATED 308 10*3/uL (130-400); RED BLOOD COUNT 3.53 10*6/uL (4.10-5.10)
[2017-01-06 07:53] LABS: CHLORIDE 104 mmol/L (98-107); CREATININE 0.68 mg/dL (0.55-1.02); SODIUM 139 mmol/L (136-145)
--- NOTE | 2017-01-06 07:55 | NUR ---
PATIENT WAS GIVEN NORCO PER PATIENT REQUEST FOR PAIN RATED A 10/10 IN THE WRISTS AND ARMS. PATIENT DESCRIBES PAIN SHARP AND EXCRUCIATING. WILL CONTINUE TO MONITOR AND REASSESS.
[2017-01-06 07:56] LABS: BUN 26 mg/dl (7-24); POTASSIUM 4.4 mmol/L (3.5-5.1)
--- NOTE | 2017-01-06 08:05 | NUR ---
PATIENT IS UP IN BED. PATIENT HAS CHRONIC PAIN THAT IS WORSENED BY MOVEMENT OF THE ARMS OR LEGS. PATIENT DENIES ANY SOB, DIZZINESS THIS MORNING. PATIENT IS ABLE TO AMBULATE WITH ASSIST. PT HAS A PT AND OT CONSULT. HOB IS ELEVATED, CALL LIGHT SYSTEM REINFORCED. LINDSAY HOSE ARE APPLIED. SEE SHIFT ASSESSMENT.
--- NOTE | 2017-01-06 08:06 | NUR ---
SPOKE WITH DR. VICENTE REGARDING SOME HOME MEDS NOT ORDERED. HE WILL LOOK AT IT.
--- NOTE | 2017-01-06 08:55 | NUR ---
PATIENT REPORTS THAT HER PAIN HAS BEEN REDUCED TO AN 8/10 BUT STILL IS IN PAIN. PATIENT ASKING WHEN THE NEXT DOSE CAN BE GIVEN. WILL CONTINUE TO MONITOR.
--- NOTE | 2017-01-06 09:19 | NUR ---
PHYSICAL THERAPY Shelby seen this AM 1:1 for her physical therapy session. Transfer supine/sit MIN A X 1, sitting balance supervision x 1, with C/O right wrist pain. Transfer onto Pt's bedside commode MOD A X 1. Followed by gait 43' X 2, with one sitting rest MOD A X 1, Pt had IV pole today and C/O right wrist pain with back pain this AM. Pt up in her bedside chair followed by act Ex to bilatwerdaniel LE of marching, LAQ's, ankle pumps with cueing for weach Ex X 20 reps each. Ppt with call light and phone but just not herself today. AMAURY PINO JACKER FEEDER.
--- NOTE | 2017-01-06 09:34 | NUR ---
PT ASSISTED BACK TO BED FROM RECLINER CHAIR PER HER REQUEST. CALL LIGHT IN REACH.
--- NOTE | 2017-01-06 09:35 | NUR ---
Hospital exemption completed in hens system online, patient accepted to [facility], needs to complete 3 night stay. Can go on 01/07/17 if medically stable for discharge.
--- NOTE | 2017-01-06 16:00 | NUR ---
GIVEN NORCO PER PT REQUEST FOR PAIN RATED A 10/10 AND DESCRIBED SHARP, BURNING, AND UNBEARABLE. WILL CONTINUE TO MONITOR AND REASSESS, CALL LIGHT IS WITHIN REACH.
--- NOTE | 2017-01-06 16:00 | NUR ---
STUDENT NURSE ON FLOOR AND WILL BE DOING DOCUMENTATION AND MEDICATION ADMINISTRATION. WILL CONTINUE TO MONITOR AND ASSIST STUDENT.
--- NOTE | 2017-01-06 16:29 | NUR ---
Occupational Therapy evaluation completed this date on 4 with full eval to follow. Precautions include fall risk, severe BUE joint pain interfering with ADLs, moderate complexity level 41909. Recommend OT per POC and SNF upon d/c. Thank you for this referral. Magaly Ramachandran OTR/l
--- NOTE | 2017-01-06 17:00 | NUR ---
PATIENT IS RESTING QUIETLY IN ROOM. PATIENT IS STILL IN CHRONIC PAIN, BUT PAIN LEVEL IS REDUCED SOWN TO A SIX AND IS TOLERABLE. NO FURTHER REQUESTS AT THIS TIME. WILL CONTINUE TO MONITOR.
--- NOTE | 2017-01-06 18:29 | NUR ---
PATIENT IS SITTING UP IN BED. PATIENT HAS CHRONIC PAIN IN THE WRISTS, KNEES, SHOULDERS, AND LOWER BACK. PATIENT DENIES ANY SOB OR DIZZINESS THROUGHOUT THE DAY. PATIENT CAN USE BSC WITH ASSIST. PATIENT ENCOURAGED TO REPOSITION, CALL LIGHT IS WITHIN REACH. SEE SHIFT ASSESSMENT.
--- NOTE | 2017-01-06 20:01 | NUR ---
1946 MEDICATED WITH NORCO 1 PO FOR C/O'S BILATERAL WRIST PAIN. RATES PAIN A "6". WILL MONITOR.
--- NOTE | 2017-01-06 20:17 | NUR ---
RESTING IN BEB TALKING WITH VISITORS. RELIEF OBTAINED FROM EARLIER PAIN MED. HEP LOCK INTACT. NO DISTRESS NOTED.
--- NOTE | 2017-01-06 22:07 | NUR ---
2100 UP TO BSC WITH 1 ASSIST. HAS DIFFICULTY GETTING OOB. ROUTINE REMERON GIVEN FOR SLEEP PER ORDER. 2209 RESTING IN BED WITHOUT C/O'S CALL LIGHT IN REACH.
[2017-01-07] VITALS: BP 140/82
--- NOTE | 2017-01-07 01:46 | NUR ---
PATIENT MEDICATED WITH PRN NORCO FOR C/O PAIN IN THE HANDS RATED 10/10 ON A 0/10 PAIN SCALE.
--- NOTE | 2017-01-07 02:30 | NUR ---
PATIENT RESTING IN BED WITH EYES CLOSED. RESPS EASY AND REGULAR. MEDICATION SEEMS EFFECTIVE
[2017-01-07 08:00] VITALS: BP 151/62
--- NOTE | 2017-01-07 08:00 | NUR ---
PATIENT IS SITTING AT THE BEDSIDE EATING BREAKFAST. PATIENT HAS CHRONIC PAIN IN THE WRISTS, SHOULDERS AND LOWER BACK. PATIENT IS ABLE TO FEED SELF, BUT WITH INCREASED DISCOMFORT. PATIENT IS AMBULATORY WITH ASSIST TO BSC. PATIENT DENIES ANY SOB OR N/V. CALL LIGHT IS WITHING REACH, BED ALARM ACTIVATED, SEE SHIFT ASSESSMENT.
--- NOTE | 2017-01-07 09:00 | NUR ---
PATIENT GIVEN NORCO PER PT REQUEST FOR WRIST AND SHOULDER PAIN RATED A 10/10 AND DESCRIBED UNBEARABLE. WILL CONTINUE TO MONITOR AND REASSESS.
[2017-01-07] MEDS ORDERED: PHARMASSURE FO0.4 MG PO (09:34)
[2017-01-07] MEDS ORDERED: Lidoderm 5% Patch T (09:34)
[2017-01-07] MEDS ORDERED: Nystatin Cream15 GM T (09:34)
[2017-01-07] MEDS ORDERED: PREDNISONE10 MG PO (09:38)
[2017-01-07] MEDS ORDERED: ARICEPT10 M1 PO (09:38)
--- NOTE | 2017-01-07 10:23 | NUR ---
In to talk to patient, stated she will be discharged to [facility] today, she stated she will have her or son transport her. Called and talked with patients son and he agreed they will transport her this afternoon when discharged. Notified [facility]
--- NOTE | 2017-01-07 10:27 | NUR ---
PHYSICAL THERAPY Shelby having a better day today then yesterday. Transfer supine/sit CGA X 1, sitting balance supervision x 1. Sit/stand and standing balance MIN A X 1. gait with MOD GRADES 9 THRU 12 VISITING TEACHER X 1, 45' X 2, MOD GRADES 9 THRU 12 VISITING TEACHER X 1, one sitting rest with C/O right wrist pain. Then gait 130' X 1, X 1, MOD GRADES 9 THRU 12 VISITING TEACHER X 1, with cueing for gait safety, balance and turns with stop/start gait. Pt back supine in bed , call light. AMAURY PINO SECTION LEADER SCREEN PRINTING.
[2017-01-07 12:00] VITALS: BP 119/55
--- NOTE | 2017-01-07 13:21 | NUR ---
RESTING IN BED. RESP-EASY AND REGULAR. CALL LIGHT IN REACH. BED ALARM ON.
--- NOTE | 2017-01-07 15:04 | NUR ---
Discharge instructions reviewed with patient/family. Patient receptive and verbalizes understanding. Follow-up care arranged WITH PCP IN 1 WEEK. Written instructions given to patient/family. JAZZY CONRAD
--- NOTE | 2017-01-07 16:12 | NUR ---
PHYSICAL THERAPY CO-SIGN I approve of the Phyical Therapy notes written above. NU STANLEY PT
== END 2017-01-07 15:04 | disposition other institution (70) | DRG 545 ==
LOC: ED 13:38 → 4E 16:04 → EDHOLD 16:04 → 4E 16:53
PROVIDERS: Emergency Medicine; Internal Medicine; ADMIT Internal Medicine
DX: M35.3 Polymyalgia rheumatica (principal); N17.0 Acute kidney failure with tubular necrosis; M13.0 Polyarthritis, unspecified; I10 Essential (primary) hypertension; E11.65 Type 2 diabetes mellitus with hyperglycemia; E87.5 Hyperkalemia; D64.9 Anemia, unspecified; E53.8 Deficiency of other specified B group vitamins; J44.9 Chronic obstructive pulmonary disease, unspecified; F03.90 Unspecified dementia, unspecified severity, without behavioral disturbance, psychotic disturbance, mood disturbance, and anxiety; E11.51 Type 2 diabetes mellitus with diabetic peripheral angiopathy without gangrene; F41.1 Generalized anxiety disorder; G89.29 Other chronic pain; Z88.0 Allergy status to penicillin; Z88.2 Allergy status to sulfonamides; Z91.041 Radiographic dye allergy status; Z79.899 Other long term (current) drug therapy; Z79.84 Long term (current) use of oral hypoglycemic drugs; Z90.49 Acquired absence of other specified parts of digestive tract; Z90.710 Acquired absence of both cervix and uterus; Z95.1 Presence of aortocoronary bypass graft; Z87.891 Personal history of nicotine dependence; Z83.3 Family history of diabetes mellitus; Z82.49 Family history of ischemic heart disease and other diseases of the circulatory system

== ENCOUNTER 2017-01-14 05:15 | Inpatient (IN) | payer MEDICARE, OTHER ==
[2017-01-14] VITALS (24 sets, daily range): BP systolic 96–200; BP diastolic 50–100
[~2017-01-14] VITALS: Ht 162.5 cm; Wt 59.9 kg
--- NOTE | ~2017-01-14 | PR ---
[place], [place] PROGRESS NOTE NAME: RASHAD CHAVEZ [facility] #: [id number] UNIT #: [id number] ROOM: [place] [address] DOCTOR: REGGIE DELAROSA MD,FELY BIRTHDATE: [birth year] DOS: 01/17/2017 PULMONARY FOLLOWUP SUBJECTIVE: She has been noted comfortable at this time. She has been successfully liberated from mechanical ventilator and fully awake and alert this morning. She has been using the BiPAP for this patient post-liberation from mechanical ventilation, starting on the nutrition support orally as well, which was tolerated. She has not been reported any symptoms of chest pain. Denies symptoms of hemoptysis. OBJECTIVE: VITAL SIGNS: For the patient, which were recorded for patient showed the temperature of patient noted as normal. The respiratory range 17-22. Heart rate of 76-60. The blood pressure 127/58-139/55. HEENT: Examination shows no acute change. NECK: Supple. CARDIOVASCULAR: S1, S2 is audible. LUNGS: The patient was noted without any wheezing. There were no crackles. ABDOMEN: Soft, nontender. Bowel sounds present. EXTREMITIES: Shows mild edema of the upper and lower extremities. LABORATORY DATA: The patient's CBC this morning, WBC count 16,000, hemoglobin of 8.1, hematocrit 26.8, and platelet count 443,000. The neutrophils noted 77% with the ordered differential. BMP this morning, BUN 30, creatinine was normal, glucose 134. Carbon dioxide of 34. Chest x-ray of the patient that was done this morning for patient shows small infiltration in the left lung and the right lower lung. IMPRESSION: 1. The patient with severe pneumonia with acute respiratory failure, status post liberation from mechanical ventilation. 2. Debility. 3. Small peripheral edema. 4. Anemia, most likely of chronic disease as well. Culture of the bronchial washing was noted without any bacterial growth and blood culture was noted as negative. 5. Overall severe debility secondary to current acute critical illness. PLAN OF MANAGEMENT: Obtain another arterial blood gas this morning to assess the patient's ventilatory status on the oxygen supplementation. Continuation of bronchodilators and oxygen supplementation. Avoid excessive IV fluids administration. Continue usual dose of prednisone 10 mg daily for history of chronic polymyalgia rheumatica. Continue current antibiotic, as Levaquin is the only antibiotic. Usual care, other supportive therapy, plan of management, and care. Additional treatment to be changed with the patient based on progression of the illness. The pneumonia seems to be responding to treatment gradually. Ordered physical therapy and occupation therapy consultation as well. The patient could be transferred from the Intensive Care Unit for this patient to telemetry floor as well. [place], [place] PROGRESS NOTE [facility] #: [id number] UNIT #: [id number] ROOM: [place] [address] DOCTOR: FELY STACY MD BIRTHDATE: [birth year] FELY PAREDES MD CM:ЕКАТЕРИНА [id number] FELY DELAROSA MD 01/18/17 0108 interface
--- NOTE | ~2017-01-14 | CON ---
[place], [place] REPORT OF CONSULTATION NAME: RASHAD CHAVEZ [facility] #: [id number] UNIT #: [id number] ROOM: [place] [address] DOCTOR: REGGIE DELAROSA MD,FELY BIRTHDATE: [birth year] DOS: 01/14/2017 PULMONARY CRITICAL CARE EVALUATION AND MANAGEMENT CONSULTATION. CONSULTATION REQUESTED BY: Hospitalist services. REASON FOR CONSULTATION: To assess the patient for current acute respiratory failure. HISTORY OF PRESENT ILLNESS: This is a 71-year-old white female who has been admitted to the hospital on 01/14/2017. The patient has been admitted in this hospital from 01/04/2017 until 01/07/2017 as well. The patient unable to give me any history. All the history essentially has been reviewed the assessment documentation medical records by the other physicians noted as well. The patient has been known with multiple past medical problems including history of type 2 diabetes mellitus, essential hypertension, polymyalgia and decreased ambulation and other issues. She has been admitted to the hospital this morning. She presented to the Emergency Room this morning from the [facility] as she has been reported symptoms of increasing shortness of breath. The patient was also noticed severe oxygen desaturation 65% reported on room air. The patient was started on oxygen supplementation sent to the hospital with 3 liters nasal cannula. The patient has been noted further deterioration in the oxygen saturation later on. She has been admitted to the hospital and because of the progressive hypoxia. The patient was started on mechanical ventilation and intubated. She has been intubated. The chest x-ray which were done post-intubation was noted complete atelectasis of the left lung, which was not present on admission. Currently, the patient has been getting assist control, volume control mechanical ventilation at this time. She has been receiving 80% oxygen supplementation. She had not required any use of the vasopressin at the present time. REVIEW OF SYSTEMS: Cannot not be completed since the patient already intubated and noted on the mechanical ventilation. PAST MEDICAL HISTORY: This patient was known with history of: 1. Type 2 diabetes mellitus. 2. History of chronic dementia. 3. History reported for COPD. 4. Acute coronary artery disease. 5. Generalized anxiety disorder. 5. Peripheral vascular disease. 6. Polymyalgia and polyarthritis. 7. Atherosclerosis of the renal artery. PAST SURGICAL HISTORY: Reported: 1. Cholecystectomy. 2. Coronary artery bypass grafting 3 vessels. 3. History of lumpectomy of the breast as well. SOCIAL HISTORY: The patient was noted with past history of tobacco use, [place], [place] REPORT OF CONSULTATION NAME: RASHAD CHAVEZ UNIT #: [id number] ROOM: [place] [address] DOCTOR: REGGIE DELAROSA MD,FELY BIRTHDATE: [birth year] quantity duration of the tobacco use was unknown. FAMILY HISTORY: The patient was unknown as well. MEDICATIONS: The patient from the nursing facility noted as use of Norvasc, Coreg, B12, digoxin, folic acid, Neurontin, hydroxyzine, losartan, lovastatin, metformin, Robaxin, Remeron, nystatin, Protonix, prednisone 10 mg daily, Carafate and Namzaric 28 mg/10 mg capsule once at bedtime. DRUG ALLERGY HISTORY: The patient was reported as allergy: 1. PENICILLIN. 2. SULFA DRUGS. 3. IVP DYE. PHYSICAL EXAMINATION: GENERAL: A 71-year-old female who has been currently intubated on mechanical ventilation at this time. VITAL SIGNS: The patient noted 5 feet 4 inches, weight of 132 pounds, BMI 22.4 recorded by the nursing staff. Respiratory rate recorded as range between 26-16 on the mechanical ventilator the temperature rectal 101, otherwise normal temperature. Heart rate ranging between 100-86, blood pressure 182/86-140/76. Pulse oxygen saturation recorded as 100% on 80% oxygen. Prior to that room air was 76% saturation of oxygen. HEENT: Examination shows head was atraumatic. The patient is currently intubated, orogastric tube has been inserted. NECK: Supple. CARDIOVASCULAR: S1, S2 audible. LUNGS: Shows severe reduced breath sounds in the left chest auscultation. Decreased breath sounds in the right side. No crackles or wheezing heard in either of the lungs. ABDOMEN: Soft, mild obesity. Bowel sounds present. EXTREMITIES: The patient was noted with 1+ pitting edema of the lower extremities. GENITOURINARY: There was no obvious musculoskeletal deformity visible. SKIN: No lesions or rashes. CENTRAL NERVOUS SYSTEM: Cannot be examined since the patient is currently intubated and sedated with IV Diprivan. LABORATORY DATA: CBC on 01/14/2017 WBC count 17.5, hemoglobin 9.9, hematocrit 32.0, platelet count 17,000. CMP: BUN noted as 29, creatinine was normal. CMP that was done this morning, glucose 164, BUN and creatinine were normal. Remaining electrolytes were normal. Albumin mildly decreased 2.8. The arterial blood gas 80% oxygen, pH of 7.32, pCO2 of 61, pO2 of 93, post-intubation on mechanical ventilation. The chest x-ray, which were done several doses. The patient during this current hospitalization including CT scan of the chest was reviewed, but x-ray that was done this morning on 01/14/2017 was noted with no acute visible pulmonary infiltration. The chest x-ray that was done for post-intubation, mechanical ventilation endotracheal tube was noted in appropriate position. Complete atelectasis left lung were noted, most likely related to the endobronchial obstruction with mucus plug was strongly suspected. [place], [place] REPORT OF CONSULTATION NAME: RASHAD CHAVEZ UNIT #: [id number] ROOM: [place] [address] DOCTOR: JOVANI STACY MDM BIRTHDATE: [birth year] The patient had a CT scan of the chest and abdomen, which was ordered. Today, the patient ordered by the primary care physician was also reviewed. CT scan of the chest shows dense plugging the mucus noted left main stem bronchus with complete atelectasis of the left lung with shift of the mediastinal structures to the left as well. Right lung appears to be showing scattered pulmonary infiltration in the right upper lung. IMPRESSION: 1. The patient normally currently admitted to the hospital noted progressive acute respiratory failure with complete atelectasis of the left lung resulting in severe acute hypoxic respiratory failure with suspected diagnosis of acute bacterial pneumonia. 2. Hypertensive response was noted at this time with past history known essential hypertension. 3. Hypoalbuminemia and possibility of moderate protein-calorie malnutrition was also suspected. 4. History of type 2 diabetes mellitus. 5. History of coronary artery disease. 6. Previous hospitalization which was noted because of decreased ambulation was noted with severe debility as well. 7. Mild edema of the extremities may be related to hypoalbuminemia, rule out any cardiac causes such as congestive heart failure as well. PLAN OF MANAGEMENT: The bronchoscopy planned to be done today to assess the current abnormal finding clear the mucus plug from the left main stem bronchus and the remaining lungs. Based on the bronchoscopy further addition of changes in the treatment if necessary will be ordered accordingly. Other additional treatment changes will be made as tolerated. The feeding will be started with nutrition support from the NG tube for 2000 calories or greater intake. The prealbumin level was ordered for the morning. Follow up chest x-ray of the patient after the bronchoscopy to assess the resolution of the atelectasis. Antibiotics for the management of acute pneumonia. The patient will be continued as previously ordered by the primary care physician. Other supportive therapy, plan of management care and plan. Usual care and all other plan of therapy. Ventilator bundle management has also been initiated. Total time, pulmonary critical care evaluation and management was 40 minutes. FELY PAREDES MD CM:CONSTR:REPORT OF CONSULTATION 1152 01/14/17 [id number] interface
--- NOTE | ~2017-01-14 | PR ---
[place], [place] PROGRESS NOTE NAME: RASHAD CHAVEZ [facility] #: [id number] UNIT #: [id number] ROOM: [place] [address] DOCTOR: REGGIE DELAROSA MD,FELY BIRTHDATE: [birth year] DOS: 01/16/2017 SUBJECTIVE: The patient seen and examined on 01/16/2017. She has been tried on the CPAP mode of mechanical ventilation yesterday for about 4 hours with arterial blood gases done every 2 hours interval. She was still noted significant hypercapnia. The patient was switched back to assist control mode of mechanical ventilation, sedation started afterwards. She had not been noted any acute hemodynamic instability. Sedation has been discontinued. Again this morning, the patient was started on CPAP mode of mechanical ventilation, CPAP 5, pressure support of 10. She was noted awake and alert and noted quite anxious. The patient would like to get the endotracheal tube removed. She has not been noted any acute new hemodynamic instability at this time. She has been noted stable, tolerating feeding very well. The temperature noted low grade 99.9 degrees Fahrenheit. OBJECTIVE: VITAL SIGNS: The patient showed temperature 99.9 degree Fahrenheit to normal temperature, respiratory rate 12-24. Heart rate of 99-110, blood pressure 170/80-141/72. Intake is 2200 mL, output 775 mL. The pulse oxygen saturation on 30% oxygen 91-93% saturation recorded. HEENT: Orogastric tube is in place. Endotracheal tube in place orally as well. NECK: Supple. CARDIOVASCULAR: S1, S2 is audible. LUNGS: Moderate decreased breath sounds noted in the lungs bilaterally. ABDOMEN: Soft, nontender. EXTREMITIES: The patient was noted without any edema, clubbing or cyanosis today. LABORATORY AND DIAGNOSTIC DATA: Two arterial blood gas yesterday CPAP, first a pH of 7.31, pCO2 of 55.8, pO2 of 77, 30% oxygen, PEEP of 5, pressure support of 10. Second arterial blood gas was noted identical to the first one. HIV antibody were noted negative, which was done because finger prick to the nursing staff. The CBC of the patient of 01/16/2017 WBC count was 19.8, hemoglobin 8.5, hematocrit 27.8, platelet count 481,000. CMP of the patient this morning BUN 34, creatinine was normal, glucose 250. Magnesium of 1.4. Digoxin level noted normal. Albumin is 2.2. Total protein 5.9. Endotracheal aspirate culture noted as normal librado. The chest x-ray that was done this morning reviewed. Endotracheal tube was noted in proper position with a small right lower lobe infiltration, still remains ____. ABG this morning, assist control mode, 40% oxygen, pH of 7.34, pCO2 of 53, and pO2 of 120. The blood culture ____ showed no bacterial growth. IMPRESSION: 1. The patient with acute severe hypoxic respiratory failure and hypercapnia as a result of complete atelectasis of the left lung and right lower lobe pneumonia from aspiration was very likely. 2. The patient with a hypercapnia still noted the present time as well, not completely corrected. 3. Protein calorie malnutrition at least moderate was considered. 4. History of type 2 diabetes mellitus with hyperglycemia, worsened because the [place], [place] PROGRESS NOTE NAME: RASHAD CHAVEZ UNIT #: [id number] ROOM: [place] [address] DOCTOR: JOVANI STACY MDM BIRTHDATE: [birth year] use of the corticosteroids. PLAN OF TREATMENT: Solu-Medrol at this time will be discontinued, is not needed. Continue the prednisone on usual dose. The patient does not require any stress dose. Also, discontinuation of the other antibiotic, broad spectrum based on the culture results. Discontinuation of the vancomycin. There was no evidence of MRSA or Staphylococcus aureus infection requiring use of the vancomycin. The Levaquin remains as the main antibiotic at the present time. Arterial blood gas will be obtained for this patient for assessment. If the arterial blood gases once assessed, noted with the improvement in the ventilation, she would be considered possibly liberation from mechanical ventilator, but certainly BiPAP use will be needed post-liberation from mechanical ventilation. Aspiration precaution to be done closely for this patient as well. Other plan of management to be changed based on progression of the illness. Continue to manage the hyperglycemia with sliding insulin coverage and adjustment of the other medication for diabetes mellitus. Usual care. All other supportive therapy, plan of management and care plan. All other supportive plan of treatment as well. Usual treatment, all other care. Total time pulmonary critical care evaluation and management for today is 36 minutes. FELY PAREDES MD CM:PNTRANS [phone] FELY DELAROSA MD 01/17/17 0026 interface
--- NOTE | ~2017-01-14 | PROC NOTE ---
[place], [place] PROCEDURE NOTE NAME: RASHAD CHAVEZ [facility] #: [id number] UNIT #: [id number] ROOM: [place] [address] DOCTOR: REGGIE DELAROSA MD,FELY BIRTHDATE: [birth year] DOS: 01/14/2017 PROCEDURE: Bronchoscopy. PREOPERATIVE DIAGNOSIS: Complete atelectasis ____ of the left lung for this patient with suspected impaction of the mucous plug. POSTOPERATIVE DIAGNOSIS: Complete atelectasis ____ of the left lung for this patient with suspected impaction of the mucous plug. PROCEDURE DESCRIPTION: Informed consent obtained for the patient's family members. The patient was continued on mechanical ventilation and sedation. Bronchoscopy done in Intensive Care Unit for this patient in the negative pressure room. The bronchoscope advanced to the endotracheal tube, lower part of the trachea. The patient already intubated for this patient at this time and vocal cords were not seen because of that. The lower part of the trachea was noted with a small amount of purulent secretion, which was suctioned out. Adelina was noted sharp. The left main stem bronchus noted with complete occlusion. The patient has very thick purulent secretion for the patient, which was suctioned out with the help of normal saline wash. The endobronchial tree was noted patent. The patient after completion of procedures, left upper, lingula, lower lobe bronchi were all noted there were no endobronchial obstructive lesions. Small secretion present in the right lower lobe. Endobronchial tree cleared with help of normal saline wash. All secretion were sent for appropriate culture. Chest x-ray ordered and completed post-procedure for this patient that shows complete resolution of the atelectasis of the left lung with visible right lower lobe infiltration. Endotracheal tube noted in appropriate position during the procedure as well. Postoperative findings will be discussed with the patient and family members. FELY PAREDES MD CM:PROCNOTE:PROCEDURE NOTE [id number] FELY DELAROSA MD
--- NOTE | ~2017-01-14 | PR ---
[place], [place] PROGRESS NOTE NAME: RASHAD CHAVEZ [facility] #: [id number] UNIT #: [id number] ROOM: 516 DOCTOR: REGGIE DELAROSA MD,FELY BIRTHDATE: [birth year] DOS: 01/20/2017 SUBJECTIVE: The patient was independently seen and examined with a [id number] encounter. The patient was confirmed. Physical examination performed. All the labs were reviewed. Assessment and management was made for the patient on today's visit. The note done by the medical van driver was approved. She continued to show reduction and improvement in the respiratory symptom for this patient at this time, minimal cough was noted without symptoms of shortness of breath. There were no symptoms of chest pain. PHYSICAL EXAMINATION: VITAL SIGNS: For the patient were noted essentially within normal limits. The pulse oxygen saturation on 2 liters nasal cannula 97% saturation recorded. HEENT: No acute change. LUNGS: Clear to auscultation bilaterally. ABDOMEN: Soft, nontender. IMPRESSION: 1. The patient with progressive resolution of acute pneumonia for this patient noted clinically and radiologically for this patient. 2. Acute respiratory failure. The patient with hypercapnia and hypoxia, are resolving. 3. Metabolic alkalosis, multifactorial. The patient related to the diuretic for this patient and from the underlying CO2 noted 42 today. PLAN OF TREATMENT: The patient could be considered for discharge to the nursing facility. BiPAP use would be advised. Completion of the antibiotic for the patient's acute pneumonia. FOLLOWUP: The ____ necessary. Use the Diamox as well for a few days. This progress note is to be attached to Dr. Paredes's progress note which he will dictate separately. SUBJECTIVE: The patient was evaluated today. She is awake, alert, oriented. She stated she wanted to get discharged if possible. The patient states that her breathing has improved and she is looking forward to a change in setting. The patient denied any nausea, vomiting, diarrhea, chest pain or any new symptoms. Her breathing, she states, continues to improve, and there has been no acute exacerbation of her current respiratory status. OBJECTIVE: VITAL SIGNS: Temperature 98.5, pulse 68, respiratory rate 20. Bedside pulse oximetry is 96% on 3 liters nasal cannula. GENERAL: Shows an awake, alert, oriented female in no acute distress. HEART: Regular rate and rhythm, no murmurs. RESPIRATORY: Decreased breath sounds, but no crackles, no rhonchi. No rales, no wheezes. ABDOMEN: Soft, nontender, nondistended. EXTREMITIES: No edema, no erythema, no breaks in skin. [place], [place] PROGRESS NOTE NAME: RASHAD CHAVEZ UNIT #: [id number] ROOM: 516 DOCTOR: REGGIE DELAROSA MD,FELY BIRTHDATE: [birth year] NEUROLOGIC: No new acute or focal deficits. PSYCHIATRIC: Good historian. ASSESSMENT AND PLAN: 1. Pneumonia has been progressively improving and resolving. 2. Acute respiratory failure. 3. Metabolic acidosis. PLAN OF TREATMENT: The patient is okay for discharge from respiratory standpoint. BiPAP use at the nursing facility, at which she will be staying ____ completion of the current antibiotics and steroids as well. Essentially, ____ could be used for the acidosis. For further details, please see Dr. Paredes's note. FELY PAREDES MD CM:PNTRANS [id number] FELY DELAROSA MD 01/21/17 0010 interface
--- NOTE | ~2017-01-14 | PR ---
[place], [place] PROGRESS NOTE NAME: RASHAD CHAVEZ [facility] #: [id number] UNIT #: [id number] ROOM: 516 DOCTOR: REGGIE DELAROSA MD,FELY BIRTHDATE: [birth year] DOS: 01/19/2017 SUBJECTIVE: She has been noted comfortable at this time without any distress. Denies symptoms of chest pain or any abdominal pain. The patient denies symptoms of hemoptysis. Overall, the patient has been noted progressive resolution improvement in the respiratory symptoms. OBJECTIVE: VITAL SIGNS: Normal temperature, respiratory rate 18, heart rate 78, blood pressure 135/75. The pulse oxygen saturation 3 liters and 98% saturation recorded. HEENT: Examination shows no acute change. NECK: Supple. CARDIOVASCULAR: S1, S2 audible. LUNGS: Without any wheezing or crackles. ABDOMEN: Soft, nontender. LABORATORY DATA: Blood culture ____ showed no bacterial growth. IMPRESSION: 1. Progressive resolution of acute hypercapnic hypoxic respiratory failure, acute bronchitis as well as acute pneumonia. 2. Debility. 3. Chronic hypercarbia secondary to the elevation of the carbon dioxide at the baseline at home. PLAN OF MANAGEMENT: No change from the pulmonary standpoint will be necessary. The patient could be assessed for discharge. The patient with home health physical therapy at shelter facility placement assessment. In the meantime, all other supportive plan to be continued. FELY PAREDES MD CM:PNTRANS [phone] FELY DELAROSA MD 01/20/17 0015 interface
--- NOTE | ~2017-01-14 | PR ---
[place], [place] PROGRESS NOTE NAME: RASHAD CHAVEZ [facility] #: [id number] UNIT #: [id number] ROOM: [place] [address] DOCTOR: REGGIE DELAROSA MD,FELY BIRTHDATE: [birth year] DOS: 01/15/2017 PULMONARY FOLLOWUP SUBJECTIVE: The patient was seen and examined on 01/15/2017. She remains on mechanical ventilator, bronchoscopy done yesterday removing the copious amount of mucopurulent material and obstruction from the left endobronchial tree resulting in complete reexpansion of the lung. Oxygen requirement has been also progressively decreased. She remains on mechanical ventilator with use of IV Diprivan mainly for sedation. She has been noted with improvement in mental status reduction sedation as well. She has not been noted any hemodynamic instability and did not require any use of vasopressors. She has not been noted any cardiac dysrhythmias. The feeding of the patient was started yesterday as well with Glucerna, which seemed to be well tolerated. OBJECTIVE: VITAL SIGNS: The temperature recorded was also noted normal. The highest temperature noted yesterday afternoon rectal temperature 101 degrees Fahrenheit, otherwise remains normal. The respiratory rate ranged between 13-17, heart 77-69, blood pressure 112/53-135/60. Intake for the patient was noted as ____. Pulse oxygen saturation 30% oxygen supplementation was noted 97% saturation. HEENT: Examination shows the patient remained orally intubated. NECK: Supple. Orogastric tube inserted. CARDIOVASCULAR: S1, S2 audible. LUNGS: Noted with moderate decreased breath sounds. There were no wheezing or crackles at the present time. ABDOMEN: Soft, nontender. Bowel sounds present. EXTREMITIES: Shows mild edema still persisted. LABORATORY DATA: Arterial blood gas this morning on 40% oxygen assist control, volume control mechanical ventilation, pH of 7.37, pCO2 of 47.4, pO2 of 90.7. Culture of the endotracheal aspirate of the patient and the bronchial washing for the patient, preliminary showing normal librado. Final results are pending. The Gram stain of the bronchial washing was noted with many white blood cells. The patient with gram-positive cocci in pairs, re-exam negative coccobacilli. The BMP of the patient that was done for this patient this morning for the patient was noted with glucose 253, BUN 27, creatinine was normal. The remaining electrolytes grossly normal. The vancomycin trough level is 8.7, which was noted less than therapeutic range. CBC today: WBC count of 16.6, hemoglobin 8.6, hematocrit 27.8, platelet count 438,000. Chest x-ray done this morning shows complete reexpansion of the lung was noted with infiltration and the area of atelectasis was noted in the right lower lobe, unchanged from yesterday, endotracheal tube was noted in appropriate position. NG tube was also noted in appropriate position. IMPRESSION: 1. The patient who has been admitted has been currently noted with findings of acute hypoxic respiratory failure for this patient with acute atelectasis in the left lung secondary to mucopurulent material impacting the left main stem bronchus improved for this patient with the bronchoscopy. [place], [place] PROGRESS NOTE NAME: RASHAD CHAVEZ UNIT #: [id number] ROOM: [place] [address] DOCTOR: REGGIE DELAROSA MD,FELY BIRTHDATE: [birth year] 2. Acute pneumonia for this patient, which has been treated for gram-positive and gram-negative with pending culture results. 3. Suspected pulmonary rather protein calorie malnutrition, which has been addressed with the feeding. 4. Leukocytosis secondary to acute pneumonia. 5. Anemia for this, most likely a chronic disease as well. 6. Hyperglycemia because of the use of the corticosteroids. PLAN OF MANAGEMENT: Recommend discontinuation of Solu-Medrol, just use her usual dose of prednisone from home settings. Continue current antibiotic for the patient, de-escalation to be done based on the progression of the illness. Continuation of the bronchodilators administration. Discontinue sedation to assess the patient wakefulness completely. Once the patient noted fully awake, start the patient on a trial of CPAP 5, pressure support of 10 for assessment of mechanical ventilation with a repeat arterial blood gas in a couple of hours. Readjust the vancomycin to have appropriate trough level for this patient as well. Other supportive therapy, plan of management continued previously in progress. Usual care. Ordered the supportive plan of management and care. Other therapy for the patient to be continued. Based on the progression of the illness. Pulmonary critical care evaluation and management was 36 minutes. FELY PAREDES MD CM:PNTRANS [id number] FELY DELAROSA MD 01/15/17 1249 interface
--- NOTE | ~2017-01-14 | PR ---
[place], [place] PROGRESS NOTE [facility] [id number] #: [id number] ROOM: 516 DOCTOR: REGGIE DELAROSA MD,FELY BIRTHDATE: [birth year] DOS: 01/18/2017 SUBJECTIVE: She was seen and examined on 01/18/2017. She has been doing very well at this time, using oxygen supplementation nasal cannula, BiPAP has been used only a short period of time by the patient. She has not been noted symptoms of chest pain. Her oral appetite was noted fair without any symptoms of dysphagia, tolerating the diet very well. The patient remains in the Intensive Care Unit in the last 24 hours. OBJECTIVE: VITAL SIGNS: Normal temperature, respiratory rate 19, heart rate of 80, blood pressure is 145/70 and 126/69. Pulse oxygen saturation on 3 liters nasal cannula, 97% saturation. HEENT: No acute change. NECK: Supple. CARDIOVASCULAR: S1, S2 audible. LUNGS: Noted without any wheezing or crackles. ABDOMEN: Soft, nontender. LABORATORY DATA: CBC this morning, WBC count 13.7, hematocrit 8.5 and hematocrit 28.1, platelet count 434,000. BMP this morning, BUN normal, creatinine was normal, sodium 146. ABG yesterday on 2 liter nasal cannula, pH of 7.39, pCO2 of 50.9, pO2 of 65.2. IMPRESSION: 1. The patient has been noted with current acute pneumonia for this patient with acute severe tracheobronchitis and respiratory failure. The patient with hypercapnia and hypoxia, which is improving slowly. 2. Severe debility was also noted. There was no findings of dysphagia noted. Overall debility, the patient was noted. The patient which required further assistance and management with physical therapy. PLAN OF MANAGEMENT: The patient could be transferred from the intensive care unit to telemetry floor. Continue usual dose of prednisone for polymyalgia rheumatica. Continue current antibiotic for the patient based on the current culture results. All the other broad spectrum intravenous antibiotics have been discontinued. Other supportive therapy, plan of management and care. Usual treatment, other supportive plan of management to be continued. [place], [place] PROGRESS NOTE NAME: RASHAD CHAVEZ [facility] #: [id number] UNIT #: [id number] ROOM: 516 DOCTOR: FELY STACY MD BIRTHDATE: [birth year] FELY PAREDES MD CM:PNTRANS [phone] FELY DELAROSA MD 01/18/17 233 interface
[~2017-01-14 05:15] MED LIST changes: +ARICEPT10 M1 PO; +Lidoderm 5% Patch T; +Nystatin Cream15 GM T; +PHARMASSURE FO0.4 MG PO
[2017-01-14 05:43] LABS: HEMOGLOBIN 9.9 g/dl (12.0-16.0); MEAN CELL VOLUME 90.1 fl (81.0-99.0); MEAN CORPUSCULAR HGB 27.9 pg (27.0-31.0); MEAN CORPUSCULAR HGB CONC 30.9 g/dl (33.0-37.0); MEAN PLATELET VOLUME 9.1 fl (9.6-12.3); PLATELET COUNT AUTOMATED 617 10*3/uL (130-400); RED BLOOD COUNT 3.55 10*6/uL (4.10-5.10); WHITE BLOOD COUNT 17.5 10*3/uL (4.8-10.8)
--- NOTE | 2017-01-14 05:50 | NUR ---
AFTER SPEAKING WITH SON AND PATIENT IT WAS DETERMINED THAT INTUBATION WAS NECESSARY. PT INTUBATED AT THIS TIME. MEDS USED: 10 ETOMIDATE, 100 MG SUCCINYLCHOLINE. 7.5 ETT 20 CM AT THE TEETH. POSITIVE COLOR CHANGE, CONDENSATION NOTED IN THE TUBE, BILATERAL BREATH SOUNDS AUSCULTATED.
[2017-01-14 05:55] LABS: ACT PARTIAL THROMBO TIME 26.9 SECONDS (20.8-31.5)
[2017-01-14 06:04] LABS: ALBUMIN 2.8 gm/dl (3.1-4.5); ALKALINE PHOSPHATASE 106 U/L (45-117); BUN 24 mg/dl (7-24); CHLORIDE 103 mmol/L (98-107); CREATININE 0.69 mg/dL (0.55-1.02); POTASSIUM 4.4 mmol/L (3.5-5.1); SGOT/AST 11 IU/L (3-35); SGPT/ALT 30 U/L (12-78); SODIUM 142 mmol/L (136-145); TOTAL PROTEIN 7.3 gm/dL (6.4-8.2)
[2017-01-14 06:08] LABS: TOTAL CELLS COUNTED 100 #CELLS
[2017-01-14 06:09] LABS: PLATELET SUFFICIENCY HIGH (NORMAL); TOXIC GRANULATION SLIGHT
[2017-01-14 06:10] LABS: POLYCHROMASIA SLIGHT
[2017-01-14 06:13] LABS: TROPONIN I < 0.015 ng/ml (<0.045)
[2017-01-14 06:15] LABS: DIGOXIN 0.75 ng/ml (0.8-2.0)
--- NOTE | 2017-01-14 06:18 | NUR ---
WEAVER INSERTED AND OG PLACED.
--- NOTE | 2017-01-14 06:42 | NUR ---
PROPOFOL DRIP INITIATED. HAS BEEN TITRATED TO 20 MCG.
--- NOTE | 2017-01-14 06:53 | NUR ---
PROPOFOL TITRATED TO 25MCG
--- NOTE | 2017-01-14 06:54 | NUR ---
PROPOFOL TITRATED TO 30 MCG, DUE TO PATIENT NOT TOLERATING VENT WELL. BP STABLE, ALL OTHER VITALS STABLE. VENT SETTINGS REMAIN UNCHANGED.
--- NOTE | 2017-01-14 06:57 | NUR ---
VENT SETTINGS NOW CHANGED BY RESP THERAPY. O2 80%, RATE 16
--- NOTE | 2017-01-14 07:10 | NUR ---
REPORT FROM JORDI CHO AT THIS TIME. PATIENT IS INTUBATED AND CURRENTLY ON A PROPOFOL DRIP. PATIENT TOLERATING DRIP AT THIS TIME. PATIENT REPORT HAS ALREADY BEEN GIVEN TO ICCU NURSE PER JORDI CHO.
--- NOTE | 2017-01-14 07:38 | NUR ---
PROPOFOL DRIP INCREASED TO 356MCG/KG/MIN PER VERBAL ORDER DR TIPTON.
--- NOTE | 2017-01-14 07:40 | NUR ---
RESPIRATORY HAS BEEN CALLED FOR TRANSPORT. AWAITING ARRIVAL OF RESPIRATORY AT THIS TIME.
--- NOTE | 2017-01-14 07:43 | NUR ---
PATIENT TOLERATING 35MCG/KG/MIN OF PROPOFOL AT THIS TIME.
--- NOTE | 2017-01-14 07:59 | NUR ---
PATIENTS PROPOFOL HAS BEEN TITRATED TO 40MCG/KG/MIN AT THIS TIME PER VERBAL ORDER OF DR TIPTON. PATIENT WAS NOT TOLERATING 35MCG.
--- NOTE | 2017-01-14 08:00 | NUR ---
A 71, admitted to ICCU, under the services of KLEVER Bean DO with a diagnosis of HYPERTENSIVE EMERGENCY. Chief complaint is SENT FROM PENITENTIARY TO ER. Patient arrived via stretcher from ER. Monitor applied. Initial assessment completed. Vital signs taken and recorded.PT INTUBATED FROM ER, SPUTUM SENT FOR THICK YELLOW SECRETIONS, PT TAKEN TO CT SOON SHE ARRIVED TO THE FLOOR Orders received. See assessment for past medical history, medications and allergies. Patient oriented to unit. [facility] ICCU visitation policy reviewed. Clothing/patient valuable form completed. ANOOP PUENTE
--- NOTE | 2017-01-14 08:07 | NUR ---
PATIENT TRANSPORTED BY THIS NURSE AND RESPIRATORY AT THIS TIME TO THE ICCU. VANE CHO AND ANOOP RN AT BEDSIDE ALONG WITH RESPIRATORY BARB. PATIENT SUCTIONED AT BEDSIDE BY RESPIRATORY. THICK YELLOW MUCUS HAS BEEN SUCTIONED FROM PATIENT.
[2017-01-14 08:43] LABS: ABG BASE EXCESS 4.5 mmol/L (-2.0-2.0); ABG HCO3 30.5 mmol/l (22-26); ABG O2 SATURATION 95.8 % (95-97); ARTERIAL BLOOD GAS PCO2 61.6 mmHg (35-45); ARTERIAL BLOOD GAS PH 7.324 (7.35-7.45); ARTERIAL BLOOD GAS PO2 93.2 mmHg (80-90)
[2017-01-14 09:30] LABS: BILIRUBIN NEGATIVE (NEGATIVE); BLOOD 3+ (NEGATIVE); CLARITY CLOUDY (CLEAR); COLOR YELLOW (YELLOW); GLUCOSE NEGATIVE (NEGATIVE); KETONE NEGATIVE (NEGATIVE); LEUKO ESTERASE NEGATIVE (NEGATIVE); NITRITE NEGATIVE (NEGATIVE); SPECIFIC GRAVITY 1.025 (1.005-1.030); UROBILINOGEN 0.2 E.U./dl (0.2-1.0)
[2017-01-14 09:56] LABS: EPITHELIAL CELLS 20-30; MUCOUS 2+; RBC 31-40 rbc/hpf (0-2)
[2017-01-14 09:58] LABS: BACTERIA 2+
--- NOTE | 2017-01-14 10:11 | NUR ---
SPEECH PATHOLOGY Screening completed. Patient is not appropriate for speech pathology services at this time due to medical status. Patient was recently intubated and placed on ventilator. This dept. will remain available should future needs arise. BANG MORALES MSCCC-PICKING MACHINE OPERATOR
[2017-01-14] MEDS ORDERED: CYMBALTA30 MG PO (10:45)
[2017-01-14] MEDS ORDERED: NATURE'S BLEND F1 MG PO (10:46)
[2017-01-14] MEDS ORDERED: MELATONIN5 M7 PO (10:48)
[2017-01-14] MEDS ORDERED: GUAIFENESIN600 MG PO (10:52)
[2017-01-14] MEDS ORDERED: OMEPRAZOLE MAGN20 MG PO (11:03)
[2017-01-14] MEDS ORDERED: TYLENOL325 M1 PO (11:04)
[2017-01-14] MEDS ORDERED: LIDODERM1 EACH T (11:09)
--- NOTE | 2017-01-14 11:12 | NUR ---
[facility] CALLED AND REQUESTED MEDICATION RECORD FAXED TO US AND THIS MED REC HAS BEEN COMPLETED.
[2017-01-14 11:41] LABS: ABG BASE EXCESS 5.3 mmol/L (-2.0-2.0); ABG HCO3 30.8 mmol/l (22-26); ABG O2 SATURATION 97.5 % (95-97); ARTERIAL BLOOD GAS PCO2 55.5 mmHg (35-45); ARTERIAL BLOOD GAS PH 7.367 (7.35-7.45)
--- NOTE | 2017-01-14 11:49 | NUR ---
AT 0930 DR PAREDES HERE AND PT WAS TRANSFERRED TO CCU-2 FOR BEDSIDE BRONCHOSCOPY. TOLERATED WELL. FAMILY HAS BEEN IN TO SEE HER. AFTER THE BRONCH PT BROUGHT BACK TO ICCU-12. DIPRIVAN HAS BEEN TITRATED DOWN TO 20MCG/KG/MIN AND PT IS ADEQUATELY SEDATED. HER FLUID BOLUS CONTINUES. REPEAT CXR HAS BEEN DONE. DR CHEN ET AL HAVE VISITED. ABG'S HAVE BEEN REPEATED.
--- NOTE | 2017-01-14 12:21 | NUR ---
DR PAREDES CALLED AND UPDATED ON LATEST ABG'S AND HE HAS VIEWED THE LATEST CXR. VENT SETTING CHANGES ORDERED AND HAVE BEEN IMPLEMENTED BY RESPIRATORY THERAPY. TUBE FEEDINGS HAVE BEEN ORDERED.
[2017-01-14 15:06] LABS: HEMATOCRIT 27.1 % (37.0-47.0); HEMOGLOBIN 8.4 g/dl (12.0-16.0); MEAN CELL VOLUME 89.7 fl (81.0-99.0); MEAN CORPUSCULAR HGB 27.8 pg (27.0-31.0); MEAN PLATELET VOLUME 9.5 fl (9.6-12.3); RED BLOOD COUNT 3.02 10*6/uL (4.10-5.10); RED CELL DISTRI WIDTH 16.8 % (0-14.5); WHITE BLOOD COUNT 17.3 10*3/uL (4.8-10.8)
[2017-01-14 15:21] LABS: BUN 19 mg/dl (7-24); CHLORIDE 109 mmol/L (98-107); CREATININE 0.55 mg/dL (0.55-1.02); PHOSPHOROUS 3.3 mg/dL (2.5-4.9); POTASSIUM 4.4 mmol/L (3.5-5.1); SODIUM 144 mmol/L (136-145)
--- NOTE | 2017-01-14 16:02 | NUR ---
TYLENOL VIA OGT FOR TEMP 101.9. ABG'S DONE LEFT RADIAL PER P/P. SENT TO THE LAB. OGT IN PLACE. TUBE FEEDINGS WITH GLUCERNA HAVE BEEN STARTED AT 20ML/HR. BED IN ROTATION MODE. DIPRIVAN CONTINUES AT 40MCG/KG/MIN.
[2017-01-14 16:05] LABS: ABG BASE EXCESS 3.6 mmol/L (-2.0-2.0); ABG HCO3 28.8 mmol/l (22-26); ABG O2 SATURATION 98.9 % (95-97); ARTERIAL BLOOD GAS PCO2 54.9 mmHg (35-45); ARTERIAL BLOOD GAS PH 7.351 (7.35-7.45)
[2017-01-14 16:10] LABS: PLATELET COUNT AUTOMATED 413 10*3/uL (130-400)
[2017-01-14 16:12] LABS: TOTAL CELLS COUNTED 100 #CELLS
[2017-01-14 16:13] LABS: PLATELET SUFFICIENCY HIGH (NORMAL)
--- NOTE | 2017-01-14 16:24 | NUR ---
DR PAREDES NOTIFIED OF REPEAT ABG'S. FIO2 TITRATED TO 50%.
--- NOTE | 2017-01-14 20:19 | NUR ---
IS RESTING QUIETLY. AROUSES TO HER NAME, BUT FOR THE MOST PART RESTS EASILY WITH DIPRIVAN AT 40MCG/KG/MIN. GLUCERNA WITH NO RESIDUAL, INCREASED RATE TO 40ML/HR. IV FLUIDS CONTINUE. SEE ALL APPROPRIATE INTERVENTIONS.
[2017-01-15] VITALS (9 sets, daily range): BP systolic 108–170; BP diastolic 49–78
[2017-01-15 05:56] LABS: ABG BASE EXCESS 1.9 mmol/L (-2.0-2.0); ABG HCO3 27.1 mmol/l (22-26); ABG O2 SATURATION 96.7 % (95-97); ARTERIAL BLOOD GAS PCO2 47.4 mmHg (35-45); ARTERIAL BLOOD GAS PH 7.372 (7.35-7.45); ARTERIAL BLOOD GAS PO2 90.7 mmHg (80-90)
--- NOTE | 2017-01-15 07:29 | NUR ---
Shift chart check completed.24 HR chart check completed.
--- NOTE | 2017-01-15 07:50 | NUR ---
ON ASSESSMENT PATIENT COUGHING WITH LARGE AMOUNT OF ORAL SECRETIONS. SHE'S EASILY AGITATED AND BANGING HER HAND ON THE BED. DIPRIVAN INCREASED TO 50MCG/KG/MIN. REMAINS INTUBATED, ON VENTILATOR. TUBE FEEDING AT 50ML/HR WITH NO RESIDUAL. SEE ALL APPROPRIATE INTERVENTIONS.
--- NOTE | 2017-01-15 08:00 | NUR ---
ROBOTIC WELDER: PT COMES FROM [facility] AND CAN RETURN UPON DC.
[2017-01-15 08:42] LABS: HEMATOCRIT 27.8 % (37.0-47.0); HEMOGLOBIN 8.6 g/dl (12.0-16.0); MEAN CORPUSCULAR HGB 27.8 pg (27.0-31.0); MEAN CORPUSCULAR HGB CONC 30.9 g/dl (33.0-37.0); MEAN PLATELET VOLUME 9.2 fl (9.6-12.3); PLATELET COUNT AUTOMATED 431 10*3/uL (130-400); RED BLOOD COUNT 3.09 10*6/uL (4.10-5.10); RED CELL DISTRI WIDTH 16.7 % (0-14.5); WHITE BLOOD COUNT 16.6 10*3/uL (4.8-10.8)
[2017-01-15 08:54] LABS: BUN 27 mg/dl (7-24); CHLORIDE 106 mmol/L (98-107); POTASSIUM 4.3 mmol/L (3.5-5.1); SODIUM 140 mmol/L (136-145)
[2017-01-15 09:36] LABS: PLATELET SUFFICIENCY HIGH (NORMAL); POLYCHROMASIA SLIGHT; TOTAL CELLS COUNTED 100 #CELLS; TOXIC GRANULATION SLIGHT
--- NOTE | 2017-01-15 10:52 | NUR ---
PICC LINE PLACED BY SHAKEEL CROOKS FROM SURGERY AND IS IN PROPER POSITION.
--- NOTE | 2017-01-15 10:59 | NUR ---
SEDATION TURNED OFF PER ORDER.
--- NOTE | 2017-01-15 13:00 | NUR ---
PT HAS BEEN ON CPAP-5, PS-10 SINCE 111. SHE'S BEEN INTERMITTENTLY AGITATED, BUT COOPERATIVE. UNRESTRAINED AND WIPES HER MOUTH, COPIOUS ORAL CLEAR SECRETIONS. HER AND SON HAVE VISITED. SHE'S NEEDED A LOT OF REASSURANCES. ABG'S HAVE BEEN DONE.
[2017-01-15 13:25] LABS: ABG BASE EXCESS 0.9 mmol/L (-2.0-2.0); ABG HCO3 27.2 mmol/l (22-26); ABG O2 SATURATION 93.6 % (95-97); ARTERIAL BLOOD GAS PCO2 55.8 mmHg (35-45); ARTERIAL BLOOD GAS PH 7.31 (7.35-7.45); ARTERIAL BLOOD GAS PO2 77.7 mmHg (80-90)
--- NOTE | 2017-01-15 13:29 | NUR ---
MEDICATED WITH PRN ZOFRAN PER ORDER.
--- NOTE | 2017-01-15 14:11 | NUR ---
ABGS WERE CALLED TO DR PAREDES. TO MAINTAIN CPAP/PS FOR 2 MORE HOURS WITH REPEAT ABGS. PT IS DISAPPOINTED BUT COOPERATIVE/UNRESTRAINED. NO FURTHER C/O NAUSEA SINCE IV ZOFRAN.
[2017-01-15 15:40] LABS: ABG BASE EXCESS 2.6 mmol/L (-2.0-2.0); ABG HCO3 29.1 mmol/l (22-26); ABG O2 SATURATION 96.7 % (95-97); ARTERIAL BLOOD GAS PCO2 58.3 mmHg (35-45); ARTERIAL BLOOD GAS PH 7.319 (7.35-7.45); ARTERIAL BLOOD GAS PO2 97.9 mmHg (80-90)
--- NOTE | 2017-01-15 17:32 | NUR ---
AT [address] PAREDES WAS TO CALL US BACK. AT 1645 PT VERY AGITATED, TAPPING HER HANDS, WANTING THE TUBE OUT. DR PAREDES PHONED WITH THE ABG RESULTS. PT PLACED BACK ON FULL VENTILATOR SUPPORT. DIPRIVAN RESTARTED AT 25MCG/KG/MIN AND SLOWLY TITRATED BACK TO 40MCG/KG/MIN WITH ADEQUATE SEDATION. HER AND SON HAVE VISITED AND UPDATED ON PLAN OF CARE. SEE ALL APPROPRIATE INTERVENTIONS.
--- NOTE | 2017-01-15 22:39 | NUR ---
24 HR chart check completed.
[2017-01-16] VITALS: BP 125/57
[2017-01-16 04:00] VITALS: BP 120/55
[2017-01-16 04:49] LABS: HEMATOCRIT 27.8 % (37.0-47.0); HEMOGLOBIN 8.5 g/dl (12.0-16.0); MEAN CELL VOLUME 91.1 fl (81.0-99.0); MEAN CORPUSCULAR HGB 27.9 pg (27.0-31.0); MEAN CORPUSCULAR HGB CONC 30.6 g/dl (33.0-37.0); MEAN PLATELET VOLUME 9.4 fl (9.6-12.3); PLATELET COUNT AUTOMATED 481 10*3/uL (130-400); RED BLOOD COUNT 3.05 10*6/uL (4.10-5.10); RED CELL DISTRI WIDTH 17.2 % (0-14.5); WHITE BLOOD COUNT 19.6 10*3/uL (4.8-10.8)
[2017-01-16 05:14] LABS: OVALOCYTES FEW; PLATELET SUFFICIENCY HIGH (NORMAL); TOTAL CELLS COUNTED 100 #CELLS
[2017-01-16 05:16] LABS: ALBUMIN 2.2 gm/dl (3.1-4.5); BUN 34 mg/dl (7-24); CHLORIDE 108 mmol/L (98-107); CREATININE 0.72 mg/dL (0.55-1.02); POTASSIUM 4.3 mmol/L (3.5-5.1); SGOT/AST 10 IU/L (3-35); SGPT/ALT 23 U/L (12-78); SODIUM 144 mmol/L (136-145); TOTAL PROTEIN 5.9 gm/dL (6.4-8.2)
[2017-01-16 05:26] LABS: ALKALINE PHOSPHATASE 102 U/L (45-117); DIGOXIN 0.87 ng/ml (0.8-2.0); PHOSPHOROUS 3.2 mg/dL (2.5-4.9); TRIGLYCERIDES 242 mg/dl (<150)
[2017-01-16 05:28] LABS: ABG BASE EXCESS 3.1 mmol/L (-2.0-2.0); ABG HCO3 28.9 mmol/l (22-26); ABG O2 SATURATION 98.3 % (95-97); ARTERIAL BLOOD GAS PCO2 53.7 mmHg (35-45); ARTERIAL BLOOD GAS PH 7.348 (7.35-7.45)
[2017-01-16 07:07] LABS: HIV 1+2 AB + HIV1 P24 AG Non Reactive (Non Reactive)
[2017-01-16 08:00] VITALS: BP 141/72
--- NOTE | 2017-01-16 08:00 | NUR ---
DIPRIVAN GTT TURNED OFF.
[2017-01-16 08:13] LABS: HEPATITIS B SURFACE AG Negative (Negative); HEPATITIS C AB <0.1 (0.0-0.9)
--- NOTE | 2017-01-16 08:30 | NUR ---
PLACED ON C-PAP 5;PS 10. HEART RATE 90'S.
--- NOTE | 2017-01-16 08:53 | NUR ---
HEART RATE 130'S. RESPIRATIONS 30. REMINDED TO CALM DOWN AND RELAX.
--- NOTE | 2017-01-16 10:45 | NUR ---
ABG'S OBTAINED FROM LEFT RADIAL AND SENT TO LAB ON ICE.
[2017-01-16 10:55] LABS: ABG O2 SATURATION 93.9 % (95-97); ARTERIAL BLOOD GAS PCO2 55.3 mmHg (35-45); ARTERIAL BLOOD GAS PH 7.325 (7.35-7.45); ARTERIAL BLOOD GAS PO2 77.2 mmHg (80-90)
--- NOTE | 2017-01-16 11:03 | NUR ---
ABG'S CALLED TO DR. PAREDES. ORDERS RECEIVED TO EXTUBATE PATIENT AND PLACE ON BI-PAP 14/12. TITRATE O2 TO MAINTAIN PULSE OX >92%
[2017-01-16 11:56] VITALS: BP 136/82
[2017-01-16 15:08] LABS: ACID FAST SMEAR Negative (.); ACID FAST SPEC PROCESSING Concentration (.)
[2017-01-16 16:00] VITALS: BP 157/76
[2017-01-16 20:00] VITALS: BP 124/58
--- NOTE | 2017-01-16 21:19 | NUR ---
WEAVER REMOVED PER PATIENT REQUEST.
[2017-01-17] VITALS: BP 137/52
[2017-01-17 04:00] VITALS: BP 127/58
[2017-01-17 04:27] LABS: BASO % 0.1 % (0.0-1.0); EOS # 0.1 10*3/uL (0.0-0.4); EOS % 0.4 % (1.0-4.0); HEMATOCRIT 26.8 % (37.0-47.0); HEMOGLOBIN 8.1 g/dl (12.0-16.0); LYMPH # 2.2 10*3/uL (1.3-4.4); LYMPH % 13.9 % (27.0-41.0); MEAN CELL VOLUME 92.1 fl (81.0-99.0); MEAN CORPUSCULAR HGB 27.8 pg (27.0-31.0); MEAN CORPUSCULAR HGB CONC 30.2 g/dl (33.0-37.0); MEAN PLATELET VOLUME 9.2 fl (9.6-12.3); MONO # 1.1 10*3/uL (0.1-1.0); MONO % 7.1 % (3.0-9.0); NEUT # 12.3 10*3/uL (2.3-7.9); NEUT % 77.1 % (47.0-73.0); PLATELET COUNT AUTOMATED 443 10*3/uL (130-400); RED BLOOD COUNT 2.91 10*6/uL (4.10-5.10); RED CELL DISTRI WIDTH 16.9 % (0-14.5)
[2017-01-17 04:40] LABS: BUN 30 mg/dl (7-24); CHLORIDE 108 mmol/L (98-107); CREATININE 0.68 mg/dL (0.55-1.02); POTASSIUM 4.3 mmol/L (3.5-5.1); SODIUM 144 mmol/L (136-145)
--- NOTE | 2017-01-17 07:07 | NUR ---
24 HR chart check completed.
[2017-01-17 08:00] VITALS: BP 148/72
[2017-01-17 12:00] VITALS: BP 139/55
--- NOTE | 2017-01-17 12:15 | NUR ---
MEDICATED WITH 2 TYLENOL FOR COMPLAINTS OF BACK PAIN. RATES PAIN A 6 ON A PAIN SCALE OF 1-10.
[2017-01-17 14:07] LABS: ABG BASE EXCESS 5.3 mmol/L (-2.0-2.0); ABG HCO3 30.6 mmol/l (22-26); ABG O2 SATURATION 92.7 % (95-97); ARTERIAL BLOOD GAS PCO2 50.9 mmHg (35-45); ARTERIAL BLOOD GAS PH 7.395 (7.35-7.45); ARTERIAL BLOOD GAS PO2 65.2 mmHg (80-90)
[2017-01-17 16:00] VITALS: BP 169/81
[2017-01-17 20:00] VITALS: BP 137/57
--- NOTE | 2017-01-17 22:24 | NUR ---
PATIENT GIVEN VISTARIL TO HELP ANXIETY WHILE WEARING BIPAP. WILL CONTINUE TO MONITOR. PATIENT IN VIEW OF STAFF.
--- NOTE | 2017-01-17 23:00 | NUR ---
PATIENT PUT ON BIPAP. PATIENT STATED SHE WILL WEAR IT FOR A LITTLE WHILE.
[2017-01-18] VITALS: BP 146/74
--- NOTE | 2017-01-18 | NUR ---
PATIENT WORE BIPAP FOR AN HOUR.
--- NOTE | 2017-01-18 01:00 | NUR ---
PATIENT STATES SHE IS HAVING TROUBLE SLEEPING, UP MULTIPLE TIMES TO USE BEDSIDE.
[2017-01-18 04:00] VITALS: BP 126/69
[2017-01-18 05:00] LABS: BASO % 0.1 % (0.0-1.0); EOS # 0.2 10*3/uL (0.0-0.4); EOS % 1.2 % (1.0-4.0); HEMATOCRIT 28.1 % (37.0-47.0); HEMOGLOBIN 8.5 g/dl (12.0-16.0); LYMPH # 2.4 10*3/uL (1.3-4.4); LYMPH % 17.2 % (27.0-41.0); MEAN CELL VOLUME 91.8 fl (81.0-99.0); MEAN CORPUSCULAR HGB 27.8 pg (27.0-31.0); MEAN CORPUSCULAR HGB CONC 30.2 g/dl (33.0-37.0); MEAN PLATELET VOLUME 9.1 fl (9.6-12.3); MONO # 0.9 10*3/uL (0.1-1.0); MONO % 6.8 % (3.0-9.0); NEUT # 10.1 10*3/uL (2.3-7.9); NEUT % 73.3 % (47.0-73.0); PLATELET COUNT AUTOMATED 434 10*3/uL (130-400); RED BLOOD COUNT 3.06 10*6/uL (4.10-5.10); RED CELL DISTRI WIDTH 16.4 % (0-14.5); WHITE BLOOD COUNT 13.7 10*3/uL (4.8-10.8)
[2017-01-18 05:12] LABS: BUN 23 mg/dl (7-24); CHLORIDE 106 mmol/L (98-107); CREATININE 0.47 mg/dL (0.55-1.02); SODIUM 146 mmol/L (136-145)
--- NOTE | 2017-01-18 05:22 | NUR ---
PATIENT STATED SHE WAS HAVING SOME PAIN IN HER HANDS, TYLENOL WAS GIVEN. WILL REASSESS.
--- NOTE | 2017-01-18 07:35 | NUR ---
24 HR chart check completed.
[2017-01-18 08:00] VITALS: BP 145/70
--- NOTE | 2017-01-18 08:58 | NUR ---
PT SITTING UP ON SIDE OF BED EATING BREAKFAST. VITALS STABLE. NO C/O ANY.
--- NOTE | 2017-01-18 10:43 | NUR ---
PHYSICAL THERAPY PAtient evaluated in ICCU, full evaluation to follow. Continue with PT as per plan of care with fall, significant acute debility, 02 and just of ventilator precautions. LTAC versus SNF for impaired mobility. PAtient is high compleixty via chart review, tests and evaluaton: [id number]. Thank you for this referral. Jacinta Robertson,PT
--- NOTE | 2017-01-18 11:02 | NUR ---
Occupational Therapy evaluation completed this date in ICCU with full eval to follow. Precautions include fall risk, ICCU, O2, severe debility, high complexity level. Recommend LTACH or SNF to enable improved ADLs, mobility and safety. Thank you for this referral. Magaly Ramachandran OTR/l
[2017-01-18 12:00] VITALS: BP 159/75
--- NOTE | 2017-01-18 13:36 | NUR ---
REPORT CALLED TO TAMMIE JOINER ON 5E. PT'S BELONGINGS ARE ALL PACKED AND READY FOR TRANSPORT ONCE PT FINISHES EATING.
[2017-01-18 16:00] VITALS: BP 148/55
[2017-01-18 20:00] VITALS: BP 146/54
--- NOTE | 2017-01-18 20:25 | NUR ---
TYLENOL GIVEN PER ORDER FOR JOINT PAIN PER PT. RATED "6".
--- NOTE | 2017-01-18 21:20 | NUR ---
TYLENOL EFFECTIVE FOR JOINT DISCOMFORT PER PT.
[2017-01-19] VITALS: BP 170/67
--- NOTE | 2017-01-19 03:34 | NUR ---
Resting quietly in bed. Resp easy and regular. Denied pain during 0000 assessment. Will continue to monitor.
--- NOTE | 2017-01-19 07:41 | NUR ---
Patient comes from [facility], can return when medically stable for discharge.
--- NOTE | 2017-01-19 07:49 | NUR ---
PT AWAKE, ALERT, ORIENTED. RESPIRATIONS EASY, REGULAR, NON-LABORED. PT COMPLAINS OF BACK PAIN. ROBAXIN GIVEN PER ORDER. CALL LIGHT IN REACH, BED IN LOWEST POSITION. VSS. NC INTACT.
[2017-01-19 08:00] VITALS: BP 135/75
--- NOTE | 2017-01-19 08:38 | NUR ---
PT COMPLAINS OF SHORTNESS OF BREATH. PT ON O2 VIA NC. PULSE OX 100%. RESPIRATORY IN TO GIVING BREATHING TREATMENT. HEART RATE 80S. VISTARIL GIVEN PER ORDER FOR ANXIETY. WILL MONITOR.
--- NOTE | 2017-01-19 10:06 | NUR ---
PHYSICAL THERAPY Shelby was seen this AM 1:1 for her physical therapy session, Pt supine in bed and on 3 L o2. Transfer supine/sit MIN A X 1, sitting balance once up supervision X 1, Pt with significant acute debility, verbal cues for her safety. Transfer sit/stand and standing balance MOD LOCAL DRIVER X 1. Then gait 9' X 1 into Pt's bathroom MOD LOCAL DRIVER X 1, with cueing for gait, balance safety and Pt on her o2. Then gait 18' X 1, MOD LOCAL DRIVER X 1, and up in Pt's bedside chair having no complaints. OT in at this time to treat, Pt with her call light and phone, no complaint of left shoulder pain. AMAURY PINO HUMAN RESOURCES TECHNICIAN.
--- NOTE | 2017-01-19 11:30 | NUR ---
PATIENT SEEN 1:1 30 MINUTES THIS DATE. PATIENT IDENTIFIED BY NAME AND DATE OF . PATIENT COMPLETED FUNCTIONAL XFER TRAINING FROM BED AND TOILET MIN A WITH MIN VERBAL CUES SAFETY. PATIENT EDUCATED PURSE LIP BREATHING FOR ENERGY CONSERVATION. PATIENT COMPLETED TOILETING TASK MOD A CLOTHES MANAGEMENT AND SAFETY. PATIENT COMPLETED GROOMING TASK MIN A COMB HAIR/ DENTURES CARE. PATIENT COMPLETED UB AROM ALL PLANES X 10 REPS SEATED WITH MOD REST BREAKS REQUIRED AND MOD VERBAL CUES TECHNIQUE/FORM. ZAHRAA HEADLEY
[2017-01-19 12:00] VITALS: BP 101/56
--- NOTE | 2017-01-19 12:35 | NUR ---
Faxed updates and progress notes to [facility] per their request. Patient ok to return when medically stable for discharge.
[2017-01-19 16:00] VITALS: BP 127/53
--- NOTE | 2017-01-19 16:32 | NUR ---
NOTIFIED OF PATIENT COMPLAINTS OF L SIDED CHEST PAIN AND SOB. VSS. NEW ORDERS RECEIVED.
--- NOTE | 2017-01-19 17:00 | NUR ---
FLUTTER GIVEN TO, AND EXPLAINED PROCESS. PT UNDERSTOOD TO PERFORM AT LEAST 10 BREATHS EVERY 1-2 HOURS.
--- NOTE | 2017-01-19 19:30 | NUR ---
ASSUMED CARE OF PT AT THIS TIME, RESPS EASY AND NONLABORED WITH NO S/S OF DISTRESS CALL LIGHT WITH IN REACH, FAMILY AT BEDSIDE
[2017-01-19 20:00] VITALS: BP 138/69
--- NOTE | 2017-01-19 20:27 | NUR ---
PT C/O INCREASED ANXIETY AND PAIN IN THE LEFT HAND/WRIST REQUESTED AND ADMISNITERD TYLENOL 650MG PO PRN PER ORDERS, VISTARIL PRN GIVEN AT THIS TIME WELL, WILL MONITOR EFFECTS
--- NOTE | 2017-01-19 21:27 | NUR ---
PRN MEDICATIONS EFFECTIVE AT THIS ITME, PT REPORTS DECREASED ANXIETY AND DECREASED PAIN LEVEL AT THIS TIME, WELL
[2017-01-20] VITALS: BP 158/63
--- NOTE | 2017-01-20 07:30 | NUR ---
ASSUMED CARE OF PT AT THIS TIME, RESPS EASY AND NONLABORED WITH NO S/S OF DISTRESS CALL LIGHT WITH IN REACH
[2017-01-20 07:41] LABS: BASO % 0.2 % (0.0-1.0); EOS # 0.2 10*3/uL (0.0-0.4); EOS % 1.5 % (1.0-4.0); HEMATOCRIT 26.9 % (37.0-47.0); HEMOGLOBIN 8.3 g/dl (12.0-16.0); LYMPH # 1.5 10*3/uL (1.3-4.4); LYMPH % 14.4 % (27.0-41.0); MEAN CELL VOLUME 91.5 fl (81.0-99.0); MEAN CORPUSCULAR HGB 28.2 pg (27.0-31.0); MEAN CORPUSCULAR HGB CONC 30.9 g/dl (33.0-37.0); MEAN PLATELET VOLUME 9.2 fl (9.6-12.3); MONO # 0.7 10*3/uL (0.1-1.0); MONO % 6.9 % (3.0-9.0); NEUT # 7.8 10*3/uL (2.3-7.9); PLATELET COUNT AUTOMATED 341 10*3/uL (130-400); RED BLOOD COUNT 2.94 10*6/uL (4.10-5.10); RED CELL DISTRI WIDTH 16.2 % (0-14.5); WHITE BLOOD COUNT 10.2 10*3/uL (4.8-10.8)
--- NOTE | 2017-01-20 08:09 | NUR ---
PT C/O RIGHT WRIST/HAND PAIN, REQUESTED AND ADMINSITERED TYLENOL 650MG PO PRN PER ORDERS, WILL MONITOR EFFECTS CALL LIGHT WITH IN REACH
[2017-01-20 08:12] LABS: BUN 10 mg/dl (7-24); CHLORIDE 98 mmol/L (98-107); CREATININE 0.48 mg/dL (0.55-1.02); POTASSIUM 3.7 mmol/L (3.5-5.1); SODIUM 144 mmol/L (136-145)
--- NOTE | 2017-01-20 08:21 | NUR ---
CALL FROM LAB PT HAD CRITICAL CO2 LEVEL, DR. GOODE NOTIFIED NO NEW ORDERS AT THIS TIME
--- NOTE | 2017-01-20 08:48 | NUR ---
PHYSICAL THERAPY Shelby was seen this AM for her physical therapy session and having a much better day today then yesterday. Transfer supine/sit, sitting balance X 4 min CG X 1, no LOB. Sit/stand and standing balance MIN A X 1. Pt on 3 L portable o2, gait total 80' X 2, one sitting rest with MOD SOUS CHEF X 1, verbal cueing for Pt's gait safety, stop/start gait, and her turns and much better today then yesterday. Pt up in her bedside chair, call light, phone and breakfast coming in . AMAURY PINO CHEESE MAKER.
--- NOTE | 2017-01-20 09:58 | NUR ---
PRN TYLENOL EFFECTIVE AT THIS TIME, REPORTS DECREASED PAIN LEVEL IN THE RIGHT WRIST/HAND, CALL LIGHT WITH IN REACH
--- NOTE | 2017-01-20 11:22 | NUR ---
Patient is ok to return to [facility] when medically stable for discharge.
[2017-01-20 12:00] VITALS: BP 148/56
[2017-01-20] MEDS ORDERED: LEVAQUIN500 M2 PO (13:08)
[2017-01-20] MEDS ORDERED: PREDNISONE50 MG PO (13:08)
[2017-01-20] MEDS ORDERED: FEOSOL325 MG PO (13:13)
[2017-01-20 15:01] LABS: IRON 62 ug/dL (50-170); TOTAL IRON BINDING CAPACITY 410 ug/dl (250-450)
--- NOTE | 2017-01-20 15:56 | NUR ---
Discharge instructions reviewed with patient/family. Patient receptive and verbalizes understanding. Follow-up care arranged. Written instructions given to patient/family. MONIQUE DODGE
== END 2017-01-20 15:56 | disposition other institution (70) | DRG 871 ==
LOC: ED 05:15 → ICCU 06:44 → 5E 06:44
PROVIDERS: Hospitalist; Internal Medicine; Internal Medicine Critical Care Medicine; Student in an Organized Health Care Education/Training Program; ADMIT Internal Medicine
PROC: 0BH17EZ Insertion of Endotracheal Airway into Trachea, Via Natural or Artificial Opening (ICD-10-PCS; principal; 2017-01-14)
PROC: 5A1945Z Respiratory Ventilation, 24-96 Consecutive Hours (ICD-10-PCS; 2017-01-14)
PROC: 0B978ZZ Drainage of Left Main Bronchus, Via Natural or Artificial Opening Endoscopic (ICD-10-PCS; 2017-01-14)
PROC: 0B918ZZ Drainage of Trachea, Via Natural or Artificial Opening Endoscopic (ICD-10-PCS; 2017-01-14)
PROC: 0B968ZZ Drainage of Right Lower Lobe Bronchus, Via Natural or Artificial Opening Endoscopic (ICD-10-PCS; 2017-01-14)
PROC: 02HV33Z Insertion of Infusion Device into Superior Vena Cava, Percutaneous Approach (ICD-10-PCS; 2017-01-15)
PROC: 5A09357 Assistance with Respiratory Ventilation, Less than 24 Consecutive Hours, Continuous Positive Airway Pressure (ICD-10-PCS; 2017-01-16)
PROC: 5A09357 Assistance with Respiratory Ventilation, Less than 24 Consecutive Hours, Continuous Positive Airway Pressure (ICD-10-PCS; 2017-01-17)
DX: A41.9 Sepsis, unspecified organism (principal); E43 Unspecified severe protein-calorie malnutrition; J96.01 Acute respiratory failure with hypoxia; J96.02 Acute respiratory failure with hypercapnia; J18.1 Lobar pneumonia, unspecified organism; D64.9 Anemia, unspecified; E11.65 Type 2 diabetes mellitus with hyperglycemia; E11.51 Type 2 diabetes mellitus with diabetic peripheral angiopathy without gangrene; I16.1 Hypertensive emergency; J98.11 Atelectasis; J44.0 Chronic obstructive pulmonary disease with (acute) lower respiratory infection; F03.90 Unspecified dementia, unspecified severity, without behavioral disturbance, psychotic disturbance, mood disturbance, and anxiety; R65.20 Severe sepsis without septic shock; I10 Essential (primary) hypertension; G89.29 Other chronic pain; F41.1 Generalized anxiety disorder; E55.9 Vitamin D deficiency, unspecified; K57.90 Diverticulosis of intestine, part unspecified, without perforation or abscess without bleeding; K44.9 Diaphragmatic hernia without obstruction or gangrene; M35.3 Polymyalgia rheumatica; Y95 Nosocomial condition; J20.9 Acute bronchitis, unspecified; I25.10 Atherosclerotic heart disease of native coronary artery without angina pectoris; T38.0X5A Adverse effect of glucocorticoids and synthetic analogues, initial encounter; M13.0 Polyarthritis, unspecified; Z95.1 Presence of aortocoronary bypass graft; Z88.0 Allergy status to penicillin; Z88.2 Allergy status to sulfonamides; Z91.041 Radiographic dye allergy status; Z90.710 Acquired absence of both cervix and uterus; Z90.49 Acquired absence of other specified parts of digestive tract; Z87.891 Personal history of nicotine dependence; Z82.49 Family history of ischemic heart disease and other diseases of the circulatory system; Z79.84 Long term (current) use of oral hypoglycemic drugs; Z79.899 Other long term (current) drug therapy; Z68.22 Body mass index [BMI] 22.0-22.9, adult

== ENCOUNTER → 2017-02-26 | Outpatient (CLI) | payer MEDICARE, OTHER ==
[~2017-02-26] MED LIST changes: +CYMBALTA30 MG PO; +FEOSOL325 MG PO; +GUAIFENESIN600 MG PO; +LEVAQUIN500 M2 PO; +MELATONIN5 M7 PO; +NATURE'S BLEND F1 MG PO; +OMEPRAZOLE MAGN20 MG PO
== END ==
LOC: MRI 09:00
DX: M47.897 Other spondylosis, lumbosacral region (principal); M48.061 Spinal stenosis, lumbar region without neurogenic claudication; M48.05 Spinal stenosis, thoracolumbar region; M48.04 Spinal stenosis, thoracic region; M13.0 Polyarthritis, unspecified; I10 Essential (primary) hypertension; F41.1 Generalized anxiety disorder; I73.9 Peripheral vascular disease, unspecified; I70.1 Atherosclerosis of renal artery

== ENCOUNTER 2017-03-22 10:50 | Inpatient (IN) | payer MEDICARE, OTHER ==
[~2017-03-22] VITALS: Ht 160 cm; Wt 60.0 kg
[2017-03-22 10:50] VITALS: BP 142/67
[2017-03-22 11:30] LABS: HEMATOCRIT 37.9 % (37.0-47.0); HEMOGLOBIN 11.8 g/dl (12.0-16.0); MEAN CELL VOLUME 86.7 fl (81.0-99.0); MEAN CORPUSCULAR HGB CONC 31.1 g/dl (33.0-37.0); PLATELET COUNT AUTOMATED 579 10*3/uL (130-400); RED BLOOD COUNT 4.37 10*6/uL (4.10-5.10); RED CELL DISTRI WIDTH 14.4 % (0-14.5); WHITE BLOOD COUNT 14.5 10*3/uL (4.8-10.8)
[2017-03-22 11:38] LABS: ACT PARTIAL THROMBO TIME 28.5 SECONDS (20.8-31.5); INTERNATIONAL NORM RATIO 1.1 (2.0-3.5)
[2017-03-22 11:46] LABS: ALBUMIN 3.1 gm/dl (3.1-4.5); ALKALINE PHOSPHATASE 67 U/L (45-117); BUN 32 mg/dl (7-24); CHLORIDE 93 mmol/L (98-107); CREATININE 1.63 mg/dL (0.55-1.02); POTASSIUM 3.8 mmol/L (3.5-5.1); SGOT/AST 10 IU/L (3-35); SGPT/ALT 13 U/L (12-78); SODIUM 135 mmol/L (136-145); TOTAL PROTEIN 7.9 gm/dL (6.4-8.2)
[2017-03-22 11:49] LABS: TOTAL CELLS COUNTED 100 #CELLS
[2017-03-22 11:50] LABS: OVALOCYTES FEW; PLATELET SUFFICIENCY HIGH (NORMAL)
[2017-03-22 11:54] LABS: TROPONIN I < 0.015 ng/ml (<0.045)
[2017-03-22 12:04] LABS: BILIRUBIN 2+ (NEGATIVE); BLOOD NEGATIVE (NEGATIVE); CLARITY CLOUDY (CLEAR); COLOR YELLOW (YELLOW); GLUCOSE NEGATIVE (NEGATIVE); KETONE 1+ (NEGATIVE); LEUKO ESTERASE NEGATIVE (NEGATIVE); NITRITE NEGATIVE (NEGATIVE); SPECIFIC GRAVITY 1.025 (1.005-1.030); UROBILINOGEN 0.2 E.U./dl (0.2-1.0)
[2017-03-22 12:17] LABS: BACTERIA 2+; CALCIUM OXALATE CRYSTALS 2+
[2017-03-22 15:47] VITALS: BP 152/54
[2017-03-22 16:00] VITALS: BP 103/57
[2017-03-22 20:00] VITALS: BP 145/72
[2017-03-23] VITALS: BP 170/65
[2017-03-23 07:30] LABS: BASO % 0.2 % (0.0-1.0); EOS % 0.4 % (1.0-4.0); HEMATOCRIT 35.4 % (37.0-47.0); HEMOGLOBIN 11.4 g/dl (12.0-16.0); LYMPH # 1.9 10*3/uL (1.3-4.4); LYMPH % 20.7 % (27.0-41.0); MEAN CELL VOLUME 86.8 fl (81.0-99.0); MEAN CORPUSCULAR HGB 27.9 pg (27.0-31.0); MEAN CORPUSCULAR HGB CONC 32.2 g/dl (33.0-37.0); MEAN PLATELET VOLUME 9.2 fl (9.6-12.3); MONO # 0.9 10*3/uL (0.1-1.0); MONO % 9.8 % (3.0-9.0); NEUT # 6.3 10*3/uL (2.3-7.9); NEUT % 68.6 % (47.0-73.0); PLATELET COUNT AUTOMATED 514 10*3/uL (130-400); RED BLOOD COUNT 4.08 10*6/uL (4.10-5.10); RED CELL DISTRI WIDTH 14.2 % (0-14.5); WHITE BLOOD COUNT 9.1 10*3/uL (4.8-10.8)
[2017-03-23 07:54] LABS: ALBUMIN 3.1 gm/dl (3.1-4.5); BUN 26 mg/dl (7-24); CHLORIDE 99 mmol/L (98-107); CHOLESTEROL 129 mg/dL (<200); CREATININE 0.83 mg/dL (0.55-1.02); PHOSPHOROUS 3.6 mg/dL (2.5-4.9); POTASSIUM 3.2 mmol/L (3.5-5.1); SGOT/AST 12 IU/L (3-35); SGPT/ALT 11 U/L (12-78); SODIUM 138 mmol/L (136-145); TRIGLYCERIDES 235 mg/dl (<150); URIC ACID 6.8 mg/dL (2.6-6.0); VLDL CHOLESTEROL 47 mg/dL (6-40)
[2017-03-23 08:00] VITALS: BP 155/68
[2017-03-23 08:00] LABS: ALKALINE PHOSPHATASE 57 U/L (45-117); FREE T4 1.32 ng/dl (0.76-1.46); HDL CHOLESTEROL 29 mg/dl (40-60); LDL CHOLESTEROL 53 mg/dL (9-159); TOTAL PROTEIN 7.4 gm/dL (6.4-8.2)
[2017-03-23 12:00] VITALS: BP 116/54
[2017-03-23 16:00] VITALS: BP 143/49
[2017-03-23 20:00] VITALS: BP 154/73
[2017-03-24] VITALS: BP 159/67
[2017-03-24 07:07] LABS: BASO % 0.4 % (0.0-1.0); EOS # 0.2 10*3/uL (0.0-0.4); EOS % 2.2 % (1.0-4.0); HEMATOCRIT 36.3 % (37.0-47.0); HEMOGLOBIN 11.3 g/dl (12.0-16.0); LYMPH # 1.5 10*3/uL (1.3-4.4); LYMPH % 14.7 % (27.0-41.0); MEAN CELL VOLUME 87.9 fl (81.0-99.0); MEAN CORPUSCULAR HGB 27.4 pg (27.0-31.0); MEAN CORPUSCULAR HGB CONC 31.1 g/dl (33.0-37.0); MEAN PLATELET VOLUME 8.8 fl (9.6-12.3); MONO % 9.6 % (3.0-9.0); NEUT # 7.3 10*3/uL (2.3-7.9); NEUT % 72.7 % (47.0-73.0); PLATELET COUNT AUTOMATED 466 10*3/uL (130-400); RED BLOOD COUNT 4.13 10*6/uL (4.10-5.10); RED CELL DISTRI WIDTH 14.2 % (0-14.5); WHITE BLOOD COUNT 10.1 10*3/uL (4.8-10.8)
[2017-03-24 07:28] LABS: BUN 14 mg/dl (7-24); CHLORIDE 102 mmol/L (98-107); CREATININE 0.56 mg/dL (0.55-1.02); POTASSIUM 3.5 mmol/L (3.5-5.1); SODIUM 141 mmol/L (136-145)
[2017-03-24 08:00] VITALS: BP 156/69
[2017-03-24 12:00] VITALS: BP 156/52
[2017-03-24 16:00] VITALS: BP 125/49
[2017-03-24 20:17] VITALS: BP 123/62
[2017-03-25] VITALS: BP 144/52
[2017-03-25 07:24] LABS: BASO % 0.4 % (0.0-1.0); EOS # 0.3 10*3/uL (0.0-0.4); EOS % 3.5 % (1.0-4.0); HEMATOCRIT 37.9 % (37.0-47.0); HEMOGLOBIN 11.8 g/dl (12.0-16.0); LYMPH # 1.6 10*3/uL (1.3-4.4); LYMPH % 19.1 % (27.0-41.0); MEAN CELL VOLUME 88.8 fl (81.0-99.0); MEAN CORPUSCULAR HGB 27.6 pg (27.0-31.0); MEAN CORPUSCULAR HGB CONC 31.1 g/dl (33.0-37.0); MONO # 0.8 10*3/uL (0.1-1.0); MONO % 9.6 % (3.0-9.0); NEUT # 5.7 10*3/uL (2.3-7.9); NEUT % 66.9 % (47.0-73.0); PLATELET COUNT AUTOMATED 465 10*3/uL (130-400); RED BLOOD COUNT 4.27 10*6/uL (4.10-5.10); RED CELL DISTRI WIDTH 14.2 % (0-14.5); WHITE BLOOD COUNT 8.5 10*3/uL (4.8-10.8)
[2017-03-25 07:37] LABS: BUN 13 mg/dl (7-24); CHLORIDE 102 mmol/L (98-107); CREATININE 0.55 mg/dL (0.55-1.02); POTASSIUM 3.7 mmol/L (3.5-5.1); SODIUM 139 mmol/L (136-145)
[2017-03-25 08:00] VITALS: BP 143/64
[2017-03-25 12:00] VITALS: BP 149/68
[2017-03-25 16:00] VITALS: BP 131/74
[2017-03-25 20:00] VITALS: BP 159/79
[2017-03-26] VITALS: BP 151/59
[2017-03-26 06:34] LABS: BASO % 0.3 % (0.0-1.0); EOS # 0.3 10*3/uL (0.0-0.4); EOS % 3.4 % (1.0-4.0); HEMATOCRIT 36.9 % (37.0-47.0); HEMOGLOBIN 11.6 g/dl (12.0-16.0); LYMPH # 1.4 10*3/uL (1.3-4.4); LYMPH % 15.7 % (27.0-41.0); MEAN CELL VOLUME 87.4 fl (81.0-99.0); MEAN CORPUSCULAR HGB 27.5 pg (27.0-31.0); MEAN CORPUSCULAR HGB CONC 31.4 g/dl (33.0-37.0); MONO # 0.8 10*3/uL (0.1-1.0); MONO % 8.6 % (3.0-9.0); NEUT # 6.2 10*3/uL (2.3-7.9); NEUT % 71.7 % (47.0-73.0); PLATELET COUNT AUTOMATED 428 10*3/uL (130-400); RED BLOOD COUNT 4.22 10*6/uL (4.10-5.10); RED CELL DISTRI WIDTH 14.2 % (0-14.5); WHITE BLOOD COUNT 8.7 10*3/uL (4.8-10.8)
[2017-03-26 06:42] LABS: BUN 11 mg/dl (7-24); CHLORIDE 101 mmol/L (98-107); CREATININE 0.58 mg/dL (0.55-1.02); POTASSIUM 3.5 mmol/L (3.5-5.1); SODIUM 141 mmol/L (136-145)
[2017-03-26 08:00] VITALS: BP 154/71
[2017-03-26] MEDS ORDERED: LEVAQUIN750 M1 PO (10:28)
[2017-03-26 11:57] VITALS: BP 163/67
== END 2017-03-26 14:46 | disposition home or self-care (01) | DRG 871 ==
LOC: ED 10:50 → 5E 13:01 → EDHOLD 13:01 → 5E 13:35
PROVIDERS: Emergency Medicine; Family Medicine; Internal Medicine
PROC: 0S9D3ZZ Drainage of Left Knee Joint, Percutaneous Approach (ICD-10-PCS; principal; 2017-03-22)
DX: A41.9 Sepsis, unspecified organism (principal); J18.9 Pneumonia, unspecified organism; N17.9 Acute kidney failure, unspecified; L89.312 Pressure ulcer of right buttock, stage 2; E11.51 Type 2 diabetes mellitus with diabetic peripheral angiopathy without gangrene; G30.9 Alzheimer's disease, unspecified; J44.9 Chronic obstructive pulmonary disease, unspecified; F02.80 Dementia in other diseases classified elsewhere, unspecified severity, without behavioral disturbance, psychotic disturbance, mood disturbance, and anxiety; F41.1 Generalized anxiety disorder; I10 Essential (primary) hypertension; Y95 Nosocomial condition; R65.20 Severe sepsis without septic shock; M25.462 Effusion, left knee; E87.6 Hypokalemia; D47.3 Essential (hemorrhagic) thrombocythemia; I25.10 Atherosclerotic heart disease of native coronary artery without angina pectoris; Z87.891 Personal history of nicotine dependence; Z90.710 Acquired absence of both cervix and uterus; Z79.84 Long term (current) use of oral hypoglycemic drugs; Z79.899 Other long term (current) drug therapy; Z90.49 Acquired absence of other specified parts of digestive tract; Z95.1 Presence of aortocoronary bypass graft; Z88.0 Allergy status to penicillin; Z88.2 Allergy status to sulfonamides; Z91.041 Radiographic dye allergy status; Z82.49 Family history of ischemic heart disease and other diseases of the circulatory system; Z83.3 Family history of diabetes mellitus

== ENCOUNTER 2017-03-30 13:08 | Inpatient (IN) | payer MEDICARE, OTHER ==
[~2017-03-30] VITALS: Ht 160 cm; Wt 51.3 kg
[2017-03-30] VITALS (9 sets, daily range): BP systolic 129–190; BP diastolic 65–120
[~2017-03-30 13:08] MED LIST changes: +LEVAQUIN750 M1 PO
[2017-03-30 14:02] LABS: BILIRUBIN NEGATIVE (NEGATIVE); BLOOD NEGATIVE (NEGATIVE); CLARITY CLEAR (CLEAR); COLOR YELLOW (YELLOW); GLUCOSE NEGATIVE (NEGATIVE); KETONE 3+ (NEGATIVE); LEUKO ESTERASE NEGATIVE (NEGATIVE); NITRITE NEGATIVE (NEGATIVE); PH 5.5 (5.0-9.0); UROBILINOGEN 0.2 E.U./dl (0.2-1.0)
[2017-03-30 14:23] LABS: BACTERIA TRACE; RBC 0-2 rbc/hpf (0-2)
[2017-03-30 14:23] LABS: BASO % 0.3 % (0.0-1.0); EOS # 0.2 10*3/uL (0.0-0.4); EOS % 2.1 % (1.0-4.0); HEMATOCRIT 38.1 % (37.0-47.0); HEMOGLOBIN 12.1 g/dl (12.0-16.0); LYMPH # 1.5 10*3/uL (1.3-4.4); LYMPH % 12.7 % (27.0-41.0); MEAN CELL VOLUME 84.3 fl (81.0-99.0); MEAN CORPUSCULAR HGB 26.8 pg (27.0-31.0); MEAN CORPUSCULAR HGB CONC 31.8 g/dl (33.0-37.0); MONO # 0.8 10*3/uL (0.1-1.0); MONO % 6.7 % (3.0-9.0); NEUT # 9.1 10*3/uL (2.3-7.9); NEUT % 77.9 % (47.0-73.0); PLATELET COUNT AUTOMATED 451 10*3/uL (130-400); RED BLOOD COUNT 4.52 10*6/uL (4.10-5.10); RED CELL DISTRI WIDTH 14.4 % (0-14.5); WHITE BLOOD COUNT 11.6 10*3/uL (4.8-10.8)
[2017-03-30 14:38] LABS: ALBUMIN 3.1 gm/dl (3.1-4.5); ALKALINE PHOSPHATASE 57 U/L (45-117); BUN 16 mg/dl (7-24); CHLORIDE 96 mmol/L (98-107); CREATININE 0.66 mg/dL (0.55-1.02); POTASSIUM 3.1 mmol/L (3.5-5.1); SGOT/AST 9 IU/L (3-35); SGPT/ALT 9 U/L (12-78); SODIUM 140 mmol/L (136-145)
[2017-03-31] VITALS: BP 147/70
[2017-03-31 06:04] LABS: BUN 18 mg/dl (7-24); CHLORIDE 98 mmol/L (98-107); CREATININE 0.71 mg/dL (0.55-1.02); PHOSPHOROUS 3.3 mg/dL (2.5-4.9); SODIUM 139 mmol/L (136-145)
[2017-03-31 06:14] LABS: BASO # 0.1 10*3/uL (0.0-0.1); BASO % 0.4 % (0.0-1.0); EOS # 0.2 10*3/uL (0.0-0.4); EOS % 1.6 % (1.0-4.0); HEMATOCRIT 40.1 % (37.0-47.0); HEMOGLOBIN 12.2 g/dl (12.0-16.0); LYMPH # 1.7 10*3/uL (1.3-4.4); LYMPH % 12.4 % (27.0-41.0); MEAN CORPUSCULAR HGB 26.5 pg (27.0-31.0); MEAN CORPUSCULAR HGB CONC 30.4 g/dl (33.0-37.0); MEAN PLATELET VOLUME 9.5 fl (9.6-12.3); MONO # 1.2 10*3/uL (0.1-1.0); MONO % 8.4 % (3.0-9.0); NEUT # 10.6 10*3/uL (2.3-7.9); NEUT % 76.9 % (47.0-73.0); PLATELET COUNT AUTOMATED 495 10*3/uL (130-400); RED BLOOD COUNT 4.61 10*6/uL (4.10-5.10); RED CELL DISTRI WIDTH 14.6 % (0-14.5); WHITE BLOOD COUNT 13.8 10*3/uL (4.8-10.8)
[2017-03-31 08:00] VITALS: BP 132/67
[2017-03-31 12:00] VITALS: BP 90/56
[2017-03-31 16:00] VITALS: BP 94/42
[2017-03-31 20:24] VITALS: BP 154/62
[2017-04-01] VITALS (7 sets, daily range): BP systolic 84–136; BP diastolic 44–82
[2017-04-01 06:38] LABS: BASO % 0.3 % (0.0-1.0); EOS # 0.3 10*3/uL (0.0-0.4); EOS % 2.7 % (1.0-4.0); HEMATOCRIT 38.9 % (37.0-47.0); HEMOGLOBIN 11.8 g/dl (12.0-16.0); LYMPH # 1.9 10*3/uL (1.3-4.4); LYMPH % 15.8 % (27.0-41.0); MEAN CELL VOLUME 88.2 fl (81.0-99.0); MEAN CORPUSCULAR HGB 26.8 pg (27.0-31.0); MEAN CORPUSCULAR HGB CONC 30.3 g/dl (33.0-37.0); MEAN PLATELET VOLUME 9.6 fl (9.6-12.3); MONO # 0.9 10*3/uL (0.1-1.0); MONO % 7.9 % (3.0-9.0); NEUT # 8.5 10*3/uL (2.3-7.9); NEUT % 72.8 % (47.0-73.0); PLATELET COUNT AUTOMATED 448 10*3/uL (130-400); RED BLOOD COUNT 4.41 10*6/uL (4.10-5.10); RED CELL DISTRI WIDTH 14.5 % (0-14.5); WHITE BLOOD COUNT 11.7 10*3/uL (4.8-10.8)
[2017-04-01 06:42] LABS: CHLORIDE 99 mmol/L (98-107); CREATININE 1.06 mg/dL (0.55-1.02); POTASSIUM 4.2 mmol/L (3.5-5.1); SODIUM 140 mmol/L (136-145)
[2017-04-01 06:48] LABS: BUN 28 mg/dl (7-24)
[2017-04-02] VITALS: BP 90/61
[2017-04-02 02:08] VITALS: BP 140/70
[2017-04-02 07:41] LABS: BASO % 0.4 % (0.0-1.0); EOS # 0.2 10*3/uL (0.0-0.4); EOS % 1.9 % (1.0-4.0); HEMATOCRIT 36.1 % (37.0-47.0); HEMOGLOBIN 11.5 g/dl (12.0-16.0); LYMPH # 1.6 10*3/uL (1.3-4.4); LYMPH % 15.9 % (27.0-41.0); MEAN CELL VOLUME 86.4 fl (81.0-99.0); MEAN CORPUSCULAR HGB 27.5 pg (27.0-31.0); MEAN CORPUSCULAR HGB CONC 31.9 g/dl (33.0-37.0); MEAN PLATELET VOLUME 9.3 fl (9.6-12.3); MONO # 0.8 10*3/uL (0.1-1.0); MONO % 7.3 % (3.0-9.0); NEUT # 7.6 10*3/uL (2.3-7.9); NEUT % 74.1 % (47.0-73.0); PLATELET COUNT AUTOMATED 409 10*3/uL (130-400); RED BLOOD COUNT 4.18 10*6/uL (4.10-5.10); RED CELL DISTRI WIDTH 14.6 % (0-14.5); WHITE BLOOD COUNT 10.3 10*3/uL (4.8-10.8)
[2017-04-02 07:50] LABS: CHLORIDE 99 mmol/L (98-107); POTASSIUM 3.8 mmol/L (3.5-5.1); SODIUM 137 mmol/L (136-145)
[2017-04-02 08:00] VITALS: BP 168/60
[2017-04-02 08:24] LABS: CREATININE 0.82 mg/dL (0.55-1.02)
[2017-04-02 08:25] LABS: BUN 40 mg/dl (7-24)
[2017-04-02 12:00] VITALS: BP 110/52
[2017-04-02] MEDS ORDERED: Percocet 325 MG1 TAB PO (14:41)
[2017-04-02] MEDS ORDERED: NEURONTIN100 MG PO (14:41)
[2017-04-02] MEDS ORDERED: ARICEPT10 M1 PO (14:41)
[2017-04-02] MEDS ORDERED: PREDNISONE20 M1 PO (14:41)
[2017-04-02] MEDS ORDERED: OXYCODONE HCL5 MG PO (14:41)
[2017-04-02 16:00] VITALS: BP 111/55
== END 2017-04-02 16:31 | disposition other institution (70) | DRG 593 ==
LOC: ED 13:08 → 4E 16:34 → EDHOLD 16:34 → 4E 17:04
PROVIDERS: Emergency Medicine; Internal Medicine; Student in an Organized Health Care Education/Training Program
DX: L89.152 Pressure ulcer of sacral region, stage 2 (principal); R65.10 Systemic inflammatory response syndrome (SIRS) of non-infectious origin without acute organ dysfunction; E87.8 Other disorders of electrolyte and fluid balance, not elsewhere classified; E44.1 Mild protein-calorie malnutrition; E83.42 Hypomagnesemia; T46.1X5A Adverse effect of calcium-channel blockers, initial encounter; I95.2 Hypotension due to drugs; I73.9 Peripheral vascular disease, unspecified; E11.9 Type 2 diabetes mellitus without complications; F03.90 Unspecified dementia, unspecified severity, without behavioral disturbance, psychotic disturbance, mood disturbance, and anxiety; J44.9 Chronic obstructive pulmonary disease, unspecified; E87.6 Hypokalemia; I16.0 Hypertensive urgency; K44.9 Diaphragmatic hernia without obstruction or gangrene; M25.562 Pain in left knee; G89.29 Other chronic pain; I25.10 Atherosclerotic heart disease of native coronary artery without angina pectoris; K57.90 Diverticulosis of intestine, part unspecified, without perforation or abscess without bleeding; I10 Essential (primary) hypertension; F41.1 Generalized anxiety disorder; R26.2 Difficulty in walking, not elsewhere classified; Z66 Do not resuscitate; Z51.5 Encounter for palliative care; R00.0 Tachycardia, unspecified; D72.810 Lymphocytopenia; E53.8 Deficiency of other specified B group vitamins; D47.3 Essential (hemorrhagic) thrombocythemia; L29.8 Other pruritus; Z87.01 Personal history of pneumonia (recurrent); Z90.49 Acquired absence of other specified parts of digestive tract; Z95.1 Presence of aortocoronary bypass graft; Z90.710 Acquired absence of both cervix and uterus; Z83.3 Family history of diabetes mellitus; Z88.0 Allergy status to penicillin; Z88.2 Allergy status to sulfonamides; Z91.041 Radiographic dye allergy status; Z79.899 Other long term (current) drug therapy; Y92.89 Other specified places as the place of occurrence of the external cause; Z68.23 Body mass index [BMI] 23.0-23.9, adult

== ENCOUNTER 2017-05-13 22:08 | Emergency (ER) | payer MEDICARE, OTHER ==
[~2017-05-13] VITALS: Wt 61.2 kg
[~2017-05-13 22:08] MED LIST changes: +OXYCODONE HCL5 MG PO; +PREDNISONE20 M1 PO
== END 2017-05-14 01:30 | disposition home or self-care (01) ==
LOC: ED 22:08
DX: M54.5 Low back pain (principal); M17.11 Unilateral primary osteoarthritis, right knee; I10 Essential (primary) hypertension; F41.9 Anxiety disorder, unspecified; I25.10 Atherosclerotic heart disease of native coronary artery without angina pectoris; G89.29 Other chronic pain; J44.9 Chronic obstructive pulmonary disease, unspecified; Z90.49 Acquired absence of other specified parts of digestive tract; Z90.710 Acquired absence of both cervix and uterus; Z88.0 Allergy status to penicillin; Z88.2 Allergy status to sulfonamides

== ENCOUNTER 2017-05-19 22:15 | Inpatient (IN) | payer MEDICARE, OTHER ==
[~2017-05-19] VITALS: Ht 160 cm; Wt 55.9 kg
--- NOTE | ~2017-05-19 | CON ---
[place], [place] REPORT OF CONSULTATION NAME[facility]AVEZ [id number] UNIT #: [id number] ROOM: 426 DOCTOR: RAS CASTELLON MD BIRTHDATE: [birth year] DOS: 05/21/2017 HISTORY OF PRESENT ILLNESS: This is a 71-year-old patient who presented with multiple medical problems, among which has been borderline anemia, known giant duodenal ulcer with history and epigastric pain. The patient had to be admitted for definitive evaluation. The patient also has been complaining of lower back pain, bilateral knee pain mostly on the left knee and becoming tolerant of the pain and had to seek medical attention. PAST MEDICAL HISTORY: Associated with COPD, degenerative joint disease, dementia, diverticulosis, giant duodenal ulcer, knee pain, sacral decubitus ulcer, unable to ambulate, and coronary artery disease. PAST SURGICAL HISTORY: Coronary artery bypass graft x 3 vessels, cholecystectomy, hysterectomy, bronchoscopies and breast lumpectomy on the right side. SOCIAL HISTORY: Past smoker. Nonalcohol consumer. FAMILY HISTORY: Noncontributory. ALLERGIES: IVP DYE, PENICILLIN, AND SULFA. MEDICATIONS: List has been reviewed. The patient has been on omeprazole chronically 20 mg after a previous trial of sucralfate and Protonix therapy in the past as well as iron supplementation in addition to other medication that reviewed. REVIEW OF SYSTEMS: GENERAL: Cognitively cloudy, however. HEENT: She denies double vision, blurred vision. RESPIRATORY: Denies shortness of breath. CARDIOVASCULAR: Denies chest pain. DIGESTIVE SYSTEM: History of giant duodenal ulcer. NEUROMUSCULOSKELETAL: Knee pain, degenerative joint disease. PHYSICAL EXAMINATION: VITAL SIGNS: Stable. HEENT: Head normocephalic, nontraumatic. Mouth and buccal mucosa benign. NECK: Supple, no thyromegaly, no cervical lymphadenopathy. CHEST: Symmetric anatomy, equal expansion, COPD pattern. HEART: Normal sinus rhythm, no gallop, no murmur. ABDOMEN: Soft. No hepato-organomegaly. Bowel sounds present. EXTREMITIES: Tender knee on the left side, particularly with hot to touch at the mattress. NEUROLOGIC: Alert and cloudy orientation. IMPRESSION: Borderline anemia, history of giant duodenal ulcer, status post previous therapy radiation of the pain from abdomen to the back, ruling out persistence of ulcer. [place], [place] REPORT OF CONSULTATION NAME: RASHAD CHAVEZ UNIT #: [id number] ROOM: 426 DOCTOR: CANDE KLEIN,RAS BIRTHDATE: [birth year] LABORATORY DATA: Labs and records have been reviewed. CT scan, no acute process. Diverticulosis without diverticulitis has been reported nonobstructing stone, left pole of the left kidney. Comprehensive metabolic panel, electrolyte balance, liver function test normal. Basic metabolic panel today within normal limits. CBC today, H and H of 11 and 35, white blood cell 11. PLAN AND DISCUSSION: We are going to proceed with EGD and colonoscopy. RAS CASTELLON MD CM:CONSTR:REPORT OF CONSULTATION 0944 05/21/17 2135 interface
--- NOTE | ~2017-05-19 | O ---
[place], [place] OPERATIVE NOTE NAME: RASHAD CHAVEZ UNIT #: [id number] ROOM: 426 DOCTOR: RAS CASTELLON MD BIRTHDATE: [birth year] DOS: 05/21/2017 ENDOSCOPIC REPORT The patient has presented with borderline anemia, radiation of the pain to the back and history of giant duodenal ulcer, knee pain. PROCEDURE: Today's procedure part of investigation is panendoscopy and colonoscopy. PREMEDICATION: Versed and Diprivan. SCOPE: Olympus forward-viewing gastroscope Q10 video. REPORT: After putting the patient in left lateral position and application of lubricant to the scope, the scope was introduced. Thereafter, under direct visualization, advanced through the length of esophagus without difficulty. Gastric pouch was entered. Gastritis was seen. Duodenal bulb multiple erosions seen and carefully inspected. The previously described giant duodenal ulcer is healed. No biopsy was obtained due to the fact the patient has been on Lovenox. Scope was gradually withdrawn from the lesser curvature. The patient extubated, tolerated procedure well. IMPRESSION: Multi-duodenal erosions, healed giant duodenal ulcer, gastritis. PLAN: Protonix 40 mg 1 every day, would suffice management. I am going to proceed with colonoscopy. COLONOSCOPY REPORT The patient has presented with a borderline anemia, undergoing investigation, abdominal pain. PROCEDURE: Today's procedure part of investigation is colonoscopy. PREMEDICATION: Versed and Diprivan. SCOPE: Olympus folding colonoscope 10L video. REPORT: After putting the patient in left lateral position and application of lubricant to rectal pouch and digital examination, the scope was introduced. Thereafter, under direct visualization, I advanced through the length of colon without difficulty. Some retained stool was noticed and diverticulosis appreciated. Base of cecum explored. The patient was gradually extubated and tolerated procedure well. IMPRESSION: Diverticulosis, no ischemia, no bleeding. PLAN AND DISCUSSION: We are going to resume feeding. [place], [place] OPERATIVE NOTE NAME: RASHAD CHAVEZ Leyla UNIT #: [id number] ROOM: 426 DOCTOR: RAS CASTELLON MD BIRTHDATE: [birth year] RAS CASTELLON MD CM:OPRECORD:OPERATIVE NOTE 0944 RAS CASTELLON MD 05/21/17 2145 interface
[2017-05-19 22:40] VITALS: BP 168/80
[2017-05-19 22:42] LABS: BASO # 0.1 10*3/uL (0.0-0.1); BASO % 0.5 % (0.0-1.0); EOS # 0.3 10*3/uL (0.0-0.4); EOS % 2.7 % (1.0-4.0); HEMATOCRIT 36.4 % (37.0-47.0); HEMOGLOBIN 11.4 g/dl (12.0-16.0); LYMPH % 19.8 % (27.0-41.0); MEAN CELL VOLUME 83.5 fl (81.0-99.0); MEAN CORPUSCULAR HGB 26.1 pg (27.0-31.0); MEAN CORPUSCULAR HGB CONC 31.3 g/dl (33.0-37.0); MEAN PLATELET VOLUME 8.9 fl (9.6-12.3); MONO # 1.1 10*3/uL (0.1-1.0); MONO % 10.7 % (3.0-9.0); NEUT # 6.6 10*3/uL (2.3-7.9); PLATELET COUNT AUTOMATED 386 10*3/uL (130-400); RED BLOOD COUNT 4.36 10*6/uL (4.10-5.10); WHITE BLOOD COUNT 10.1 10*3/uL (4.8-10.8)
[2017-05-19 22:59] VITALS: BP 168/86
[2017-05-19 22:59] LABS: ACT PARTIAL THROMBO TIME 24.9 SECONDS (20.8-31.5)
[2017-05-19 23:01] LABS: ALBUMIN 3.6 gm/dl (3.1-4.5); ALKALINE PHOSPHATASE 85 U/L (45-117); BUN 22 mg/dl (7-24); CHLORIDE 95 mmol/L (98-107); CREATININE 0.61 mg/dL (0.55-1.02); POTASSIUM 4.4 mmol/L (3.5-5.1); SGOT/AST 12 IU/L (3-35); SGPT/ALT 35 U/L (12-78); SODIUM 131 mmol/L (136-145); TOTAL PROTEIN 6.9 gm/dL (6.4-8.2)
[2017-05-19 23:02] LABS: TROPONIN I < 0.015 ng/ml (<0.045)
[2017-05-19] MEDS ORDERED: VITAMIN D31000 UNI1 PO (23:02)
[2017-05-19] MEDS ORDERED: CYMBALTA60 MG PO (23:03)
[2017-05-19] MEDS ORDERED: DIGOX125 MCG PO (23:05)
[2017-05-19] MEDS ORDERED: FEOSOL325 MG PO (23:06)
[2017-05-19] MEDS ORDERED: ARTHRITIS PAIN650 M3 PO (23:09)
[2017-05-19 23:57] VITALS: BP 170/82
[2017-05-20 01:15] VITALS: BP 198/82
[2017-05-20] MEDS ORDERED: MOBIC15 MG PO (03:09)
[2017-05-20 05:17] LABS: ALBUMIN 3.6 gm/dl (3.1-4.5); ALKALINE PHOSPHATASE 66 U/L (45-117); BUN 24 mg/dl (7-24); CHLORIDE 95 mmol/L (98-107); CREATININE 0.63 mg/dL (0.55-1.02); FREE T4 1.01 ng/dl (0.76-1.46); PHOSPHOROUS 3.6 mg/dL (2.5-4.9); POTASSIUM 4.6 mmol/L (3.5-5.1); SGOT/AST 14 IU/L (3-35); SGPT/ALT 36 U/L (12-78); SODIUM 133 mmol/L (136-145); TOTAL PROTEIN 6.8 gm/dL (6.4-8.2)
[2017-05-20 06:10] LABS: BASO # 0.1 10*3/uL (0.0-0.1); BASO % 0.5 % (0.0-1.0); EOS # 0.3 10*3/uL (0.0-0.4); EOS % 2.3 % (1.0-4.0); HEMATOCRIT 36.5 % (37.0-47.0); HEMOGLOBIN 11.6 g/dl (12.0-16.0); LYMPH # 1.6 10*3/uL (1.3-4.4); MEAN CELL VOLUME 84.5 fl (81.0-99.0); MEAN CORPUSCULAR HGB 26.9 pg (27.0-31.0); MEAN CORPUSCULAR HGB CONC 31.8 g/dl (33.0-37.0); MEAN PLATELET VOLUME 9.2 fl (9.6-12.3); MONO # 0.6 10*3/uL (0.1-1.0); NEUT # 9.4 10*3/uL (2.3-7.9); NEUT % 78.9 % (47.0-73.0); PLATELET COUNT AUTOMATED 402 10*3/uL (130-400); RED BLOOD COUNT 4.32 10*6/uL (4.10-5.10)
[2017-05-20 08:00] VITALS: BP 148/77
[2017-05-20 12:00] VITALS: BP 148/73
[2017-05-20 16:00] VITALS: BP 159/69
[2017-05-20 19:02] LABS: BILIRUBIN NEGATIVE (NEGATIVE); BLOOD NEGATIVE (NEGATIVE); CLARITY SL CLOUDY (CLEAR); COLOR YELLOW (YELLOW); GLUCOSE 2+ (NEGATIVE); KETONE NEGATIVE (NEGATIVE); LEUKO ESTERASE NEGATIVE (NEGATIVE); NITRITE NEGATIVE (NEGATIVE); UROBILINOGEN 0.2 E.U./dl (0.2-1.0)
[2017-05-20 19:09] LABS: BACTERIA TRACE
[2017-05-20 20:00] VITALS: BP 160/70
[2017-05-21] VITALS (7 sets, daily range): BP systolic 153–190; BP diastolic 72–96
[2017-05-21 07:04] LABS: BASO % 0.3 % (0.0-1.0); EOS # 0.1 10*3/uL (0.0-0.4); EOS % 0.6 % (1.0-4.0); HEMOGLOBIN 11.1 g/dl (12.0-16.0); LYMPH % 17.5 % (27.0-41.0); MEAN CELL VOLUME 83.1 fl (81.0-99.0); MEAN CORPUSCULAR HGB 26.4 pg (27.0-31.0); MEAN CORPUSCULAR HGB CONC 31.7 g/dl (33.0-37.0); MONO # 1.1 10*3/uL (0.1-1.0); MONO % 9.6 % (3.0-9.0); NEUT % 71.6 % (47.0-73.0); PLATELET COUNT AUTOMATED 384 10*3/uL (130-400); RED BLOOD COUNT 4.21 10*6/uL (4.10-5.10); RED CELL DISTRI WIDTH 17.2 % (0-14.5); WHITE BLOOD COUNT 11.2 10*3/uL (4.8-10.8)
[2017-05-21 07:37] LABS: BUN 15 mg/dl (7-24); CHLORIDE 99 mmol/L (98-107); CREATININE 0.53 mg/dL (0.55-1.02)
[2017-05-21 07:56] LABS: SODIUM 137 mmol/L (136-145)
[2017-05-21 07:59] LABS: POTASSIUM 3.5 mmol/L (3.5-5.1)
[2017-05-21] MEDS ORDERED: VISTARIL50 MG PO (14:18)
== END 2017-05-21 15:52 | disposition hospice, home (50) | DRG 205 ==
LOC: ED 22:15 → 4E 05-20 00:06 → EDHOLD 05-20 00:06 → 4E 05-20 00:27
PROVIDERS: Emergency Medicine Emergency Medical Services; Internal Medicine; Student in an Organized Health Care Education/Training Program
PROC: 0DJD8ZZ Inspection of Lower Intestinal Tract, Via Natural or Artificial Opening Endoscopic (ICD-10-PCS; principal; 2017-05-21)
PROC: 0DJ08ZZ Inspection of Upper Intestinal Tract, Via Natural or Artificial Opening Endoscopic (ICD-10-PCS; principal; 2017-05-21)
DX: M94.0 Chondrocostal junction syndrome [Tietze] (principal); K29.71 Gastritis, unspecified, with bleeding; E11.40 Type 2 diabetes mellitus with diabetic neuropathy, unspecified; E11.51 Type 2 diabetes mellitus with diabetic peripheral angiopathy without gangrene; K26.4 Chronic or unspecified duodenal ulcer with hemorrhage; I25.810 Atherosclerosis of coronary artery bypass graft(s) without angina pectoris; E87.1 Hypo-osmolality and hyponatremia; K62.5 Hemorrhage of anus and rectum; E11.65 Type 2 diabetes mellitus with hyperglycemia; E87.8 Other disorders of electrolyte and fluid balance, not elsewhere classified; J44.9 Chronic obstructive pulmonary disease, unspecified; M25.561 Pain in right knee; M25.562 Pain in left knee; K57.90 Diverticulosis of intestine, part unspecified, without perforation or abscess without bleeding; K44.9 Diaphragmatic hernia without obstruction or gangrene; F03.90 Unspecified dementia, unspecified severity, without behavioral disturbance, psychotic disturbance, mood disturbance, and anxiety; G89.29 Other chronic pain; M17.11 Unilateral primary osteoarthritis, right knee; I10 Essential (primary) hypertension; F41.1 Generalized anxiety disorder; D64.9 Anemia, unspecified; D72.810 Lymphocytopenia; D72.821 Monocytosis (symptomatic); M35.3 Polymyalgia rheumatica; E55.9 Vitamin D deficiency, unspecified; E53.8 Deficiency of other specified B group vitamins; Z88.0 Allergy status to penicillin; Z79.4 Long term (current) use of insulin; Z88.2 Allergy status to sulfonamides; Z91.041 Radiographic dye allergy status; Z90.49 Acquired absence of other specified parts of digestive tract; Z95.1 Presence of aortocoronary bypass graft; Z90.710 Acquired absence of both cervix and uterus; Z87.891 Personal history of nicotine dependence; Z79.899 Other long term (current) drug therapy; Z66 Do not resuscitate; Z51.5 Encounter for palliative care

== ENCOUNTER → 2017-05-25 | Outpatient (CLI) | payer MEDICARE, OTHER ==
[~2017-05-25] MED LIST changes: +ARTHRITIS PAIN650 M3 PO; +DIGOX125 MCG PO; +MOBIC15 MG PO; +VITAMIN D31000 UNI1 PO
== END | disposition home or self-care (01) ==
LOC: ORTHO 03:50
DX: M17.11 Unilateral primary osteoarthritis, right knee (principal)

== ENCOUNTER → 2018-01-07 | Outpatient (CLI) | payer MEDICARE, OTHER ==
[2018-01-07 11:22] LABS: HEMATOCRIT 37.5 % (37.0-47.0); HEMOGLOBIN 11.6 g/dl (12.0-16.0); MEAN CELL VOLUME 89.3 fl (81.0-99.0); MEAN CORPUSCULAR HGB 27.6 pg (27.0-31.0); MEAN CORPUSCULAR HGB CONC 30.9 g/dl (33.0-37.0); MEAN PLATELET VOLUME 9.4 fl (9.6-12.3); RED BLOOD COUNT 4.2 10*6/uL (4.10-5.10); RED CELL DISTRI WIDTH 13.5 % (0-14.5); WHITE BLOOD COUNT 8.5 10*3/uL (4.8-10.8)
[2018-01-07 11:53] LABS: ALBUMIN 3.4 gm/dl (3.1-4.5); ALKALINE PHOSPHATASE 85 U/L (45-117); BUN 32 mg/dl (7-24); CHLORIDE 98 mmol/L (98-107); CHOLESTEROL 202 mg/dL (<200); CREATININE 1.03 mg/dL (0.55-1.02); HDL CHOLESTEROL 42 mg/dl (40-60); LDL CHOLESTEROL 133 mg/dL (9-159); POTASSIUM 4.1 mmol/L (3.5-5.1); SGOT/AST 11 IU/L (3-35); SGPT/ALT 13 U/L (12-78); SODIUM 136 mmol/L (136-145); TOTAL PROTEIN 7.7 gm/dL (6.4-8.2); TRIGLYCERIDES 133 mg/dl (<150); VLDL CHOLESTEROL 27 mg/dL (6-40)
== END | disposition home or self-care (01) ==
LOC: LAB 10:55
PROVIDERS: Internal Medicine
DX: I12.9 Hypertensive chronic kidney disease with stage 1 through stage 4 chronic kidney disease, or unspecified chronic kidney disease (principal); E11.22 Type 2 diabetes mellitus with diabetic chronic kidney disease; N18.3 Chronic kidney disease, stage 3 (moderate); E87.5 Hyperkalemia; M35.3 Polymyalgia rheumatica

== ENCOUNTER 2018-07-20 21:49 | Inpatient (IN) | payer OTHER, MEDICARE ==
[~2018-07-20] VITALS: Ht 157.5 cm; Wt 71.9 kg
[2018-07-20 22:00] VITALS: BP 102/65
--- NOTE | 2018-07-20 22:00 | NUR ---
Time: 2199 A 73 year old FEMALE admitted [facility]. KEVIN RAYO
--- NOTE | 2018-07-20 22:31 | NUR ---
NOTIFIED DR. LOERA OF ORDER THAT WAS PLACED FOR 20MG. AND THAT THAT WAS THE CONCENTRATION WRITTEN ON THE HOSPICE ORDERS AND THAT THE ACTUAL ORDER WAS FOR 5MG. HE STATED HE WOULD FIX IT
[2018-07-21] VITALS: BP 94/74
--- NOTE | 2018-07-21 01:30 | NUR ---
PRN MORPHINE ADMINISTERED PRESCRIBED FOR 5/10 STOMACH DISCOMFORT. WILL CONTINUE TO MONITOR THE PT AND REASSESS IN AN HOUR.
--- NOTE | 2018-07-21 02:39 | NUR ---
PT RESTING PEACEFULLY. NO SIGNS OF DISTRESS NOTED.
--- NOTE | 2018-07-21 05:38 | NUR ---
TALKED WITH THE PATIENT REGARDING MEASUREMENTS AND PICTURES OF HER WOUNDS. WHEN ASKED IF SHE WOULD LIKE ME TO DO SO, SHE STATED "NO, THAT'S OKAY".
--- NOTE | 2018-07-21 07:02 | NUR ---
RASHAD CHAVEZ [id number] Please refer to the physician's history and physical for past medical history, comorbid conditions, and allergies. Diagnosis: HOSPICE CARE RENAL FAILURE Sterling Score: 10,HIGH RISK WOUND DESCRIPTIONS: Patient stated she is to uncomfortable to be turn and repostioned for her skin to be looked over at this time. Patient stated she hasn't been this sick in a while. This nurse informed her that if she doesn't want us to look at her wounds we will respect her wishes. Surface the patient is resting on: Position Pro SKIN PREVENTION RECOMMENDATION: 1. Pressure redistribution support surface as appropriate 2. Elevate heels 3. Remove boots/TEDS every shift and reapply 4. Head of bed 30 degrees as tolerated 5. Assess nutrition and hydration 6. Manage moisture 7. Avoid the use of containment devices while in bed 8. Use absorptive products on surfaces limit layers of linens on bed 9. Turn and reposition every 1-2 hours in bed and every 1 hour in chair as tolerated 10. Weight shifts every 15 minutes while up in chair 11. Offloading with pillows or device to keep heels elevated off bed 12. Monitor skin at least every shift 13. Inspect under medical devices twice a day WOUND TREATMENT RECOMMENDATIONS: Heel raiser pro boots while in bed. Wheelchair cushion when oob.
[2018-07-21 08:00] VITALS: BP 112/76; BP 130/78
--- NOTE | 2018-07-21 08:27 | NUR ---
MORPHINE AND ZOFRAN GIVEN AT THIS TIME PER PRN ORDER FOR C/O PAIN AND NAUSEA. WILL MONITOR EFFECTIVENESS.
--- NOTE | 2018-07-21 11:18 | NUR ---
Dr. Villalba notified of wound care recommendations.
[2018-07-21 12:00] VITALS: BP 90/53
--- NOTE | 2018-07-21 13:16 | NUR ---
SPOKE TO HOSPICE REP CONCERNING PATIENT CONDITION. EXPLAINED PATIENT IS ON MORPHINE PERSCRIBED FOR COMFORT CARE. FAMILY HAS BEEN PRESENT THROUGHOUT DAY. HOSPICE SAID THEY WILL CINTINUE TO MONITOR FOR ANY CHANGES TO PATIENTS CURRENT CONDITION.
--- NOTE | 2018-07-21 14:08 | NUR ---
HOSPICE NURSE IN TO SEE PATIENT.
--- NOTE | 2018-07-21 15:51 | NUR ---
ATIVAN GIVEN FOR RESTLESSNESS. WILL MONITOR EFFECTIVENESS.
[2018-07-21 16:00] VITALS: BP 110/82
--- NOTE | 2018-07-21 16:00 | NUR ---
HOSPICE NURSE IN TO SEE PATIENT AT THIS TIME.
--- NOTE | 2018-07-21 16:10 | NUR ---
ON EXAM, THE PATIENT DID NOT RESPOND TO VERBAL OR PHYSICAL STIMULI. ABSENT HEART AND BREATH SOUNDS. PATIENT PRONOUNCED AT 1608 BY 2 RN'S. NOTIFIED. FAMILY ALREADY CALLED IN FOR CHANGE IN CONDITION. 8TH GRADE TEACHER NOTIFIED. [employer]OR [employer] CALLED AT THIS TIME.
--- NOTE | 2018-07-21 18:06 | NUR ---
ONE CALL CALLED AT THIS TIME PER POLICY. REFERENCE NUMBER [id number]. PATIENT RULED OUT FOR ORGAN DONATION.
--- NOTE | 2018-07-21 18:30 | NUR ---
[facility] CALLED AT THIS TIME. WAITING FOR PICKUP.
--- NOTE | 2018-07-21 19:32 | NUR ---
[facility] HERE TO TAKE PATIENT. DENTURES AND SHIRT WENT WITH PATIENT THAT WAS LEFT BY FAMILY
== END 2018-07-21 19:32 | disposition expired | DRG 871 ==
LOC: 4E 21:49
PROVIDERS: ADMIT Internal Medicine
DX: A41.9 Sepsis, unspecified organism (principal); J18.9 Pneumonia, unspecified organism; J96.01 Acute respiratory failure with hypoxia; N17.0 Acute kidney failure with tubular necrosis; E43 Unspecified severe protein-calorie malnutrition; E87.1 Hypo-osmolality and hyponatremia; J44.0 Chronic obstructive pulmonary disease with (acute) lower respiratory infection; F03.91 Unspecified dementia, unspecified severity, with behavioral disturbance; R65.20 Severe sepsis without septic shock; I25.118 Atherosclerotic heart disease of native coronary artery with other forms of angina pectoris; E11.65 Type 2 diabetes mellitus with hyperglycemia; E11.51 Type 2 diabetes mellitus with diabetic peripheral angiopathy without gangrene; E55.9 Vitamin D deficiency, unspecified; K44.9 Diaphragmatic hernia without obstruction or gangrene; E53.8 Deficiency of other specified B group vitamins; G89.29 Other chronic pain; I11.0 Hypertensive heart disease with heart failure; E11.40 Type 2 diabetes mellitus with diabetic neuropathy, unspecified; I50.9 Heart failure, unspecified; M35.3 Polymyalgia rheumatica; M17.11 Unilateral primary osteoarthritis, right knee; I70.0 Atherosclerosis of aorta; I70.1 Atherosclerosis of renal artery; F41.1 Generalized anxiety disorder; E87.8 Other disorders of electrolyte and fluid balance, not elsewhere classified; E87.5 Hyperkalemia; E86.0 Dehydration; E80.6 Other disorders of bilirubin metabolism; R74.0 Nonspecific elevation of levels of transaminase and lactic acid dehydrogenase [LDH]; R74.8 Abnormal levels of other serum enzymes; Z66 Do not resuscitate; Z51.5 Encounter for palliative care; K57.90 Diverticulosis of intestine, part unspecified, without perforation or abscess without bleeding; Z79.4 Long term (current) use of insulin; Z90.49 Acquired absence of other specified parts of digestive tract; Z90.712 Acquired absence of cervix with remaining uterus; Z95.1 Presence of aortocoronary bypass graft; Z87.891 Personal history of nicotine dependence; Z83.3 Family history of diabetes mellitus; Z88.0 Allergy status to penicillin; Z88.2 Allergy status to sulfonamides; Z91.041 Radiographic dye allergy status; Z79.899 Other long term (current) drug therapy; Z68.28 Body mass index [BMI] 28.0-28.9, adult